=== PATIENT | male | born 1950 | race Caucasian/White ===

== ENCOUNTER 2020-01-21 12:09 | Inpatient (IN) | payer MEDICARE, OTHER, SELFPAY ==
[2020-01-21] MEDS ORDERED: Sodium Chloride 0.9% 10 ML Syringe FLUSH PRN (13:45)
--- NOTE | 2020-01-21 13:50 | EDM.PDOC ---
ED HPI GENERAL MEDICAL PROBLEM - General Chief Complaint: General Stated Complaint: FALL (YESTERDAY) Time Seen by Provider: 01/21/20 13:35 Source of Information: Reports: Patient History Limitations: Reports: No Limitations - History of Present Illness INITIAL COMMENTS - FREE TEXT/NARRATIVE: 69-year-old male presents to the ED per private vehicle he drove himself here. He found himself on the kitchen floor this morning and is unsure how he got there. He remembers falling yesterday out of weakness and landing on his right knee. Patient was diagnosed with cancer in his liver and lung about 6 weeks ago. He has been seen primarily at [facility] in [place]. Used to smoke but quit 17 years ago. Patient is recurrently receiving chemotherapy with last chemo given on Tuesday, January 15. He is due for chemotherapy again this Tuesday. He is not aware of a fever but he states he has had night sweats for 2 months and probably longer. He states up until 2 to 3 days ago he was able to eat but he has not been able to feel good enough to eat anything for at least 48 hours and probably longer. He reports that he still voiding but the urine is dark in color and brown slightly. He does report that he gets intermittent chills but no worse than what he has been experiencing for the last several months. Patient denies cough or sputum production. He is having significant right upper quadrant abdominal pain that is worsened by deep breathing. This pain is sharp and stabbing ,pleuritic-like and he is aware of discomfort under the right costal margin on palpation of his own abdomen. He does not believe that he hurt himself from getting falling to the floor and believes he must of went down easily. He reports that he did have a stroke in October of this year with left-sided weakness and paresthesias. He went down to [place] and was seen through the ED but apparently did not require admission to the hospital by neurology services. Abdominal Pain Score (Numeric/FACES): 6 - Related Data Allergies Allergy/AdvReac Type Severity Reaction Status Date / Time No Known Allergies Allergy Verified 01/21/20 12:23 Past Medical History Respiratory History: Reports: Other (See Below) (Primary carcinoma left lung--diagnosed approximately 6 weeks prior to admission) Musculoskeletal History: Reports: Back Pain, Chronic (Min problems with low back pain) Oncologic (Cancer) History: Reports: Liver, Lung Social & Family History - Tobacco Use Smoking Status *Q: Former Smoker (At 17 years ago. 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 Denies: Weight Loss HEENT: Reports: No Symptoms Respiratory: Reports: Shortness of Breath, Pleuritic Chest Pain (This is felt primarily in the right lung base but more so in the infra costal area in the distribution of his liver.), Cough. Denies: Wheezing (Feels mildly short of breath.), Sputum, Hemoptysis (Nonproductive) Cardiovascular: Reports: Dyspnea on Exertion, Lightheadedness (Especially the last 2 to 3 days). Denies: Chest Pain, Blood Pressure Problem, Claudication, Orthopnea Endocrine: Reports: Fatigue GI/Abdominal: Reports: Abdominal Pain (Required in the abdomen in the distribution of his liver. Pain is occasional sharp and stabbing otherwise aware of a dull ache in this area. He does radiate through to his right flank.), Anorexia (Not taken any solids for greater than 48 hours.), Diarrhea. Denies: Distension, Flatus, Hematemesis, Hematochezia : Reports: Other (It is dark in color.). Denies: Dysuria Musculoskeletal: Reports: Shoulder Pain, Back Pain (Diffuse intermittent low back pain.), Joint Pain (Cage no shoulder pain and neck pain. He is tender where he fell on it yesterday.) Skin: Reports: No Symptoms Neurological: Reports: Confusion, Dizziness, Syncope (Normalized weakness apparent syncopal event as he found himself on the kitchen floor this morning and does not know how long he was on the floor. He does remember how he got on the floor either.), Difficulty Walking, Weakness. Denies: Change in Speech Psychiatric: Reports: Depression Hematologic/Lymphatic: Reports: Anemia (Especially since the diagnosis of cancer 6 weeks ago.) Immunologic: Reports: No Symptoms ED EXAM, GENERAL - Physical Exam Exam: See Below Exam Limited By: No Limitations General Appearance: Alert, Anxious, Moderate Distress (Tachypneic on observation.), Other (Temperature recorded 37.2 but he feels much warmer than this. Heart rate is 152 by the nurses recording sinus tachycardia. Respiratory 16 with O2 sats of 97% I actually observed a tachypnea of 26/min. BP is 136/97 supine.) Eye Exam: Bilateral Eye: PERRL, Other (Very mild scleral icterus appreciated on exam.) Throat/Mouth: Normal Inspection, Normal Lips, Normal Teeth, Normal Oropharynx, Other (Tongue is still moist.) Head: Atraumatic, Normocephalic, Other (There are no outward signs of head or facial trauma.) Neck: Normal Inspection, Supple, Non-Tender, Full Range of Motion, Other (Supraclavicular or infraclavicular adenopathy appreciated.). No: Lymphadenopathy (L), Lymphadenopathy (R) Respiratory/Chest: Lungs Clear, Respiratory Distress (Tachypnea at rest 26/min), Decreased Breath Sounds, Other (Port-A-Cath present right upper anterior chest.). No: Rales, Rhonchi, Wheezing Cardiovascular: No Edema, No Gallop, No JVD (Very minimally decreased to lung bases may be the lower 15%.), No Murmur, No Rub, Tachycardia (Heart rate was in the 140s on my examination. Monitor shows sinus tachycardia). No: Regular Rate, Rhythm Peripheral Pulses: 1+: Posterior Tibial (L), Posterior Tibial (R), Dorsalis Pedis (L), Dorsalis Pedis (R) GI/Abdominal: Guarding, Abnormal Bowel Sounds, Hepatomegaly (There is felt 2 fingerbreadths below the right costal margin and is tender to palpation.). No: Distended (All sounds are decreased from the norm.), Splenomegaly (Male) Exam: No Hernia Back Exam: Normal Inspection, Full Range of Motion. No: CVA Tenderness (L), CVA Tenderness (R) Extremities: Normal Inspection, No Pedal Edema, Other (Tenderness over the right knee i.e. patella. No traumatic effusion noted no clinical evidence of patellofemoral fracture.) Neurological: Alert, Oriented, CN II-XII Intact, Normal Cognition. No: Normal Gait (Not assessed.) Psychiatric: Anxious (Mildly anxious), Depressed Mood Skin Exam: Warm, Dry, Intact, Normal Color, No Rash EKG INTERPRETATION EKG Date: 01/21/20 Time: 13:50 Rhythm: Other (sinus tachycardia) Rate (Beats/Min): 140 [place]: RAD-Right [place]way Deviation (114 degrees.) P-Wave: Enlarged (Right atrial hypertrophy pattern.) QRS: Other (Decreased voltage extremity leads. Early R wave transition consider right ventricular hypertrophy versus septal hypertrophy pattern.) ST-T: Other (T wave inversion in aVL nonspecific finding.) QT: Normal EKG Interpretation Comments: Abnormal ECG Course - Vital Signs Last Recorded V/S: Last Vital Signs Temp 37.2 C 01/21/20 14:45 Pulse 130 H 01/21/20 14:45 Resp 30 H 01/21/20 14:45 BP 126/77 01/21/20 14:45 Pulse Ox 93 L 01/21/20 14:45 Orthostatic Blood Pressure [ 114/79 Standing] Orthostatic Blood Pressure [ 122/81 Sitting] Orthostatic Blood Pressure [ 110/79 Supine] - Orders/Labs/Meds Orders: Active Orders 24 hr Category Date Time Status EKG 12 Lead [EKG Documentation Completion] [RC] STAT Care 01/21/20 13:22 Active Peripheral IV Care [RC] . DIRECTED Care 01/21/20 13:45 Active CORONAVIRUS COVID-19 ARNOLD [MOLEC] Stat Lab 01/21/20 15:24 Received CULTURE BLOOD [BC] Stat Lab 01/21/20 15:14 Received CULTURE BLOOD [BC] Stat Lab 01/21/20 15:22 Received UA W/MICROSCOPIC [URIN] Stat Lab 01/21/20 12:51 Ordered Dextrose 5%-0.9% NaCl [Dextrose 5%-Normal Saline] 1,000 Med 01/21/20 14:00 Active ml IV ASDIRECTED Dextrose 5%-0.9% NaCl [Dextrose 5%-Normal Saline] 1,000 Med 01/21/20 15:30 Active ml IV ASDIRECTED Potassium Chloride [KCl 10 MEQ in Water 100 ML] 10 meq Med 01/21/20 14:45 Active Premix Bag 1 bag IV Q1H Sodium Chloride 0.9% [Saline Flush] Med 01/21/20 13:45 Active 10 ml FLUSH ASDIRECTED PRN Blood Culture x2 Reflex Set [OM.PC] Stat Oth 01/21/20 13:44 Ordered Peripheral IV Insertion Adult [OM.PC] Stat Oth 01/21/20 13:45 Ordered Medication Orders Dextrose/Sodium Chloride (Dextrose 5%-Normal Saline) 1,000 mls @ 999 mls/hr IV ASDIRECTED SIS Last Admin: 01/21/20 14:18 Dose: 999 mls/hr Documented by: FRANCINE Potassium Chloride 10 meq/ (Premix) 100 mls @ 100 mls/hr IV Q1H SIS Stop: 01/21/20 19:44 Last Admin: 01/21/20 16:32 Dose: 100 mls/hr Documented by: Infusion: 01/21/20 16:28 Dose: 100 mls/hr Documented by: Admin: 01/21/20 15:28 Dose: 100 mls/hr Documented by: SALTY Dextrose/Sodium Chloride (Dextrose 5%-Normal Saline) 1,000 mls @ 125 mls/hr IV ASDIRECTED SIS Last Admin: 01/21/20 15:29 Dose: 125 mls/hr Documented by: SALTY Sodium Chloride (Saline Flush) 10 ml FLUSH ASDIRECTED PRN PRN Reason: Keep Vein Open Last Admin: 01/21/20 14:20 Dose: 10 ml Documented by: FRANCINE Labs: Laboratory Tests 01/21/20 01/21/20 01/21/20 Range/Units 12:18 12:30 12:58 WBC 1.76 L* (4.23-9.07) K/mm3 RBC 4.12 L (4.63-6.08) M/mm3 Hgb 12.4 L (13.7-17.5) gm/dl Hct 38.0 L (40.1-51.0) % MCV 92.2 (79.0-92.2) fl MCH 30.1 (25.7-32.2) pg MCHC 32.6 (32.2-35.5) g/dl RDW Std Deviation 42.4 (35.1-43.9) fL Plt Count 131 L (163-337) K/mm3 MPV 9.0 L (9.4-12.3) fl Neut % (Auto) 72.1 H (34.0-67.9) % Lymph % (Auto) 18.2 L (21.8-53.1) % Schley % (Auto) 7.4 (5.3-12.2) % Eos % (Auto) 0.6 L (0.8-7.0) Baso % (Auto) 0.6 (0.1-1.2) % Neut # (Auto) 1.27 L (1.78-5.38) K/mm3 Lymph # (Auto) 0.32 L (1.32-3.57) K/mm3 Schley # (Auto) 0.13 L (0.30-0.82) K/mm3 Eos # (Auto) 0.01 L (0.04-0.54) K/mm3 Baso # (Auto) 0.01 (0.01-0.08) K/mm3 Manual Slide Review Abnormal smear PT (9.7-12.0) SECONDS INR APTT (22-31) SECONDS D-Dimer, Quantitative (0.19-0.50) mg/L Puncture Site ABG pH (7.35-7.45) ABG pCO2 (35.0-45.0) mmHg ABG pO2 (80.0-100.0) mmHg ABG HCO3 (22.0-26.0) meq/L ABG O2 Saturation (96.0-97.0) % ABG Base Excess (-2-2.0) Alfredo Test A-a Gradient mmHg O2 Delivery Device Oxygen Flow Rate FiO2 (21.00-100.00) % Sodium (136-145) mEq/L Potassium (3.5-5.1) mEq/L Chloride (98-107) mEq/L Carbon Dioxide (21-32) mEq/L Anion Gap (5-15) BUN (7-18) mg/dL Creatinine (0.7-1.3) mg/dL Est Cr Clr Drug Dosing Estimated GFR (MDRD) (>60) mL/min BUN/Creatinine Ratio (14-18) Glucose (80-115) mg/dL Lactic Acid (0.4-2.0) mmol/L Calcium (8.5-10.1) mg/dL Magnesium 1.8 (1.8-2.4) mg/dl Total Bilirubin (0.2-1.0) mg/dL AST (15-37) U/L ALT (16-63) U/L Alkaline Phosphatase (46-116) U/L Troponin I < 0.017 (0.00-0.056) ng/mL NT-Pro-B Natriuret Pep 314 H (0-125) pg/mL Total Protein (6.4-8.2) g/dl Albumin (3.4-5.0) g/dl Globulin gm/dL Albumin/Globulin Ratio (1-2) 01/21/20 01/21/20 01/21/20 Range/Units 12:58 12:58 15:14 WBC (4.23-9.07) K/mm3 RBC (4.63-6.08) M/mm3 Hgb (13.7-17.5) gm/dl Hct (40.1-51.0) % MCV (79.0-92.2) fl MCH (25.7-32.2) pg MCHC (32.2-35.5) g/dl RDW Std Deviation (35.1-43.9) fL Plt Count (163-337) K/mm3 MPV (9.4-12.3) fl Neut % (Auto) (34.0-67.9) % Lymph % (Auto) (21.8-53.1) % Schley % (Auto) (5.3-12.2) % Eos % (Auto) (0.8-7.0) Baso % (Auto) (0.1-1.2) % Neut # (Auto) (1.78-5.38) K/mm3 Lymph # (Auto) (1.32-3.57) K/mm3 Schley # (Auto) (0.30-0.82) K/mm3 Eos # (Auto) (0.04-0.54) K/mm3 Baso # (Auto) (0.01-0.08) K/mm3 Manual Slide Review PT 11.8 (9.7-12.0) SECONDS INR 1.09 APTT 27 (22-31) SECONDS D-Dimer, Quantitative 2.38 H (0.19-0.50) mg/L Puncture Site ABG pH (7.35-7.45) ABG pCO2 (35.0-45.0) mmHg ABG pO2 (80.0-100.0) mmHg ABG HCO3 (22.0-26.0) meq/L ABG O2 Saturation (96.0-97.0) % ABG Base Excess (-2-2.0) Alfredo Test A-a Gradient mmHg O2 Delivery Device Oxygen Flow Rate FiO2 (21.00-100.00) % Sodium 137 (136-145) mEq/L Potassium 2.9 L (3.5-5.1) mEq/L Chloride 97 L (98-107) mEq/L Carbon Dioxide 29 (21-32) mEq/L Anion Gap 13.9 (5-15) BUN 14 (7-18) mg/dL Creatinine 1.0 (0.7-1.3) mg/dL Est Cr Clr Drug Dosing TNP Estimated GFR (MDRD) > 60 (>60) mL/min BUN/Creatinine Ratio 14.0 (14-18) Glucose 166 H (80-115) mg/dL Lactic Acid 1.1 (0.4-2.0) mmol/L Calcium 9.0 (8.5-10.1) mg/dL Magnesium (1.8-2.4) mg/dl Total Bilirubin 0.9 (0.2-1.0) mg/dL AST 20 (15-37) U/L ALT 39 (16-63) U/L Alkaline Phosphatase 138 H (46-116) U/L Troponin I (0.00-0.056) ng/mL NT-Pro-B Natriuret Pep (0-125) pg/mL Total Protein 6.9 (6.4-8.2) g/dl Albumin 2.2 L (3.4-5.0) g/dl Globulin 4.7 gm/dL Albumin/Globulin Ratio 0.5 L (1-2) //20 Range/Units 15:49 WBC (4.23-9.07) K/mm3 RBC (4.63-6.08) M/mm3 Hgb (13.7-17.5) gm/dl Hct (40.1-51.0) % MCV (79.0-92.2) fl MCH (25.7-32.2) pg MCHC (32.2-35.5) g/dl RDW Std Deviation (35.1-43.9) fL Plt Count (163-337) K/mm3 MPV (9.4-12.3) fl Neut % (Auto) (34.0-67.9) % Lymph % (Auto) (21.8-53.1) % Schley % (Auto) (5.3-12.2) % Eos % (Auto) (0.8-7.0) Baso % (Auto) (0.1-1.2) % Neut # (Auto) (1.78-5.38) K/mm3 Lymph # (Auto) (1.32-3.57) K/mm3 Schley # (Auto) (0.30-0.82) K/mm3 Eos # (Auto) (0.04-0.54) K/mm3 Baso # (Auto) (0.01-0.08) K/mm3 Manual Slide Review PT (9.7-12.0) SECONDS INR APTT (22-31) SECONDS D-Dimer, Quantitative (0.19-0.50) mg/L Puncture Site Lt radial ABG pH 7.46 H (7.35-7.45) ABG pCO2 36.3 (35.0-45.0) mmHg ABG pO2 65.0 L (80.0-100.0) mmHg ABG HCO3 25.7 (22.0-26.0) meq/L ABG O2 Saturation 92.3 L (96.0-97.0) % ABG Base Excess 2.5 H (-2-2.0) Alfredo Test Positive A-a Gradient 36 mmHg O2 Delivery Device Room air Oxygen Flow Rate 0.0 FiO2 21.00 (21.00-100.00) % Sodium (136-145) mEq/L Potassium (3.5-5.1) mEq/L Chloride (98-107) mEq/L Carbon Dioxide (21-32) mEq/L Anion Gap (5-15) BUN (7-18) mg/dL Creatinine (0.7-1.3) mg/dL Est Cr Clr Drug Dosing Estimated GFR (MDRD) (>60) mL/min BUN/Creatinine Ratio (14-18) Glucose (80-115) mg/dL Lactic Acid (0.4-2.0) mmol/L Calcium (8.5-10.1) mg/dL Magnesium (1.8-2.4) mg/dl Total Bilirubin (0.2-1.0) mg/dL AST (15-37) U/L ALT (16-63) U/L Alkaline Phosphatase (46-116) U/L Troponin I (0.00-0.056) ng/mL NT-Pro-B Natriuret Pep (0-125) pg/mL Total Protein (6.4-8.2) g/dl Albumin (3.4-5.0) g/dl Globulin gm/dL Albumin/Globulin Ratio (1-2) Meds: Medications Generic Name Dose Route Start Last Admin Trade Name Freq PRN Reason Stop Dose Admin Dextrose/Sodium Chloride 1,000 mls @ 999 mls/hr 01/21/20 14:00 01/21/20 14:18 Dextrose 5%-Normal Saline IV 999 mls/hr ASDIRECTED SIS Administration Potassium Chloride 10 meq/ 100 mls @ 100 mls/hr 01/21/20 14:45 01/21/20 16:32 Premix IV 01/21/20 19:44 100 mls/hr Q1H SIS Administration Dextrose/Sodium Chloride 1,000 mls @ 125 mls/hr 01/21/20 15:30 01/21/20 15:29 Dextrose 5%-Normal Saline IV 125 mls/hr ASDIRECTED SIS Administration Sodium Chloride 10 ml 01/21/20 13:45 01/21/20 14:20 Saline Flush FLUSH 10 ml ASDIRECTED PRN Administration Keep Vein Open Discontinued Medications Generic Name Dose Route Start Last Admin Trade Name Freq PRN Reason Stop Dose Admin Acetaminophen 650 mg 01/21/20 14:34 01/21/20 15:29 Tylenol PO 01/21/20 14:35 Not Given ONETIME ONE Ampicillin Sodium/Sulbactam 100 mls @ 200 mls/hr 01/21/20 14:33 06/29/20 15:52 Sodium 3 gm/ Sodium Chloride IV 01/21/20 15:02 200 mls/hr ONETIME ONE Administration Vancomycin HCl 1.75 gm/ Sodium 500 mls @ 250 mls/hr 01/21/20 14:37 01/21/20 15:54 Chloride IV 01/21/20 14:38 250 mls/hr ONETIME ONE Administration - Radiology Interpretation Free Text/Narrative:: 69-year-old male presents to the ED due to generalized severe weakness. He states he found himself on his kitchen floor this morning and is unsure how long he been down and how he ended up on the floor. He also fell yesterday due to weakness landing on his right knee. He states he does not feel like he broke any bones. He has no headache nausea or vomiting. Patient was recently diagnosed with lung cancer felt to be primary with metastatic disease to the liver approximately 6 weeks ago. He has a Port-A-Cath in right upper anterior chest and has been receiving chemotherapy every Tuesday I believe he has completed 2 cycles of chemotherapy and is scheduled for the next one on Tuesday--January 22- this week. Patient states he has chills intermittently. How ever he has had been having night sweats for about a year with intermittent chills. He appreciated his urine is dark in color. He states he has not been able to keep down any solids or eat for the last 2 days. Has also not been taking adequate fluids. States he has lost his appetite completely. Mild is nausea but no vomiting. Mild diarrhea x1 yesterday and small diarrhea stool this morning without blood.. Patient was a smoker in the past but quit 17 years ago. Takes 3-4 beers daily. Not drank for 48 hours. Note the patient is single and lives alone. - Re-Assessments/Exams Free Text/Narrative Re-Assessment/Exam: 01/21/20 14:28 Patient is neutropenic with a white cell count of 1.76. The auto differential is 72.1% neutrophils. Hemoglobin is 12.4 with hematocrit of 38.0. Platelet count 131,000. The slide reveals leukocytopenia and slightly decreased platelet count with normal morphology. Again no bands cells reported. PT is 11.8 with a INR of 1.09. PTT is 27. D-dimer elevated at 2.38 not unexpected for cancer patient. Sodium is 137 with a potassium low at 2.9. Chloride 97 with a bicarb of 29. Anion gap is 13.9. BUN is 14 with a creatinine of 1.0. GFR is greater than 60. Glucose elevated at 166. Calcium is 9.0. Magnesium is 1.8. Bilirubin is 0.9. AST is 20 with an ALT of 39. Alk phos is slightly elevated at 138. Troponin I is less than 0.017. Total protein is 6.9 albumin fraction is 2.2. Chest x-ray reveals a mass in the left lower lung field. It is approximately 4.5 cm in diameter. No other signs of cancer appreciated in either lung. Lungs are mildly hyperinflated. Cardiac silhouette is normal. Mild diffuse vascular congestion pattern. BNP is ordered but analyzer is still not working. The cath appreciated right upper anterior chest. Will require potassium supplementation and I will order 10 mEq/h for 5 consecutive hours. He will also be started on antibiotics empirically as he is febrile and neutropenic. Will be given Unasyn 3 g IV followed by vancomycin 1750mg IV. He will require admission to the hospital and I will discuss case with Dr. Arora on-call hospitalist. 01/21/20: 15:35 BNP slightly elevated at 314. Total protein 6.9 with a low albumin fraction of 2.2. COVID screen is pending. 01/21/20 16:00: Patient has had a prolonged period of active investigation with difficulty starting his Port-A-Cath and then receiving blood cultures x2 and lactic acid. He is hungry and requesting some pudding and some fluids orally. This will be started as soon as possible. COVID screen has been obtained as well. Patient has been seen by Dr. Arora and will be admitted to the intensive care unit. Note patient refused Tylenol because his previous doctor told him that he could not take any Tylenol or Motrin. Of note the patient is clinically febrile. And can have up to 2 g of Tylenol per day even with liver disease. Tylenol will not be forced upon him. 01/21/20 17:16 Departure - Departure Time of Disposition: 16:30 Disposition: Admitted As Inpatient 68 Condition: Poor Clinical Impression: Personal history of immunocompromised state, Metastatic carcinoma to liver, Acute febrile illness, Fall as cause of accidental injury at home as place of occurrence, Generalized weakness, Hypokalemia Primary lung cancer Qualifiers: Laterality: left Qualified Code(s): C34.92 - Malignant neoplasm of unspecified part of left bronchus or lung - Discharge Information *PRESCRIPTION DRUG MONITORING PROGRAM REVIEWED*: Not Applicable *COPY OF PRESCRIPTION DRUG MONITORING REPORT IN PATIENT ESTELA: Not Applicable Sepsis Event Note (ED) - Evaluation Sepsis Screening Result: No Definite Risk - Focused Exam Vital Signs: Vital Signs Temp Pulse Resp BP Pulse Ox 01/21/20 14:45 37.2 C 130 H 30 H 126/77 93 L 01/21/20 12:20 37.2 C 152 H 16 136/97 H 97 - My Orders Last 24 Hours: My Active Orders 01/21/20 14:00 Dextrose 5%-0.9% NaCl [Dextrose 5%-Normal Saline] 1,000 ml IV ASDIRECTED 01/21/20 14:45 Potassium Chloride [KCl 10 MEQ in Water 100 ML] 10 meq Premix Bag 1 bag IV Q1H 01/21/20 15:24 CORONAVIRUS COVID-19 ARNOLD [MOLEC] Stat 01/21/20 15:30 Dextrose 5%-0.9% NaCl [Dextrose 5%-Normal Saline] 1,000 ml IV ASDIRECTED - Assessment/Plan Last 24 Hours: My Active Orders 01/21/20 14:00 Dextrose 5%-0.9% NaCl [Dextrose 5%-Normal Saline] 1,000 ml IV ASDIRECTED 01/21/20 14:45 Potassium Chloride [KCl 10 MEQ in Water 100 ML] 10 meq Premix Bag 1 bag IV Q1H 01/21/20 15:24 CORONAVIRUS COVID-19 ARNOLD [MOLEC] Stat 01/21/20 15:30 Dextrose 5%-0.9% NaCl [Dextrose 5%-Normal Saline] 1,000 ml IV ASDIRECTED
[2020-01-21] MEDS ORDERED: Dextrose 5%-0.9% NaCl 1,000 ML IV SCH (14:00)
--- NOTE | 2020-01-21 14:30 | CR ---
Chest: Portable view of the chest was obtained. Masslike density overlying the left cardiac apex is seen. Lungs otherwise are clear. Heart size and mediastinum are normal. Right-sided infusion port is seen. Impression: 1. 4.5 cm masslike density overlying the left cardiac apex. Chest CT could be considered to confirm this finding. 2. Infusion port. Nothing acute is otherwise seen. Diagnostic code #9 This report was dictated in MDT
[2020-01-21] MEDS ORDERED: Ampicillin/Sulbactam Na 3 GM in Sodium Chloride 0.9% 100 ML IV ONE (14:33)
[2020-01-21] MEDS ORDERED: Acetaminophen 325 MG Tab PO ONE (14:34)
[2020-01-21] MEDS ORDERED: Vancomycin 1.75 GM in Sodium Chloride 0.9% 500 ML IV ONE (14:37)
[2020-01-21] MEDS: Potassium Chloride 10 MEQ in Premix Bag 1 BAG IV SCH ×5 (15:28→19:54)
[2020-01-21] MEDS: Dextrose 5%-0.9% NaCl 1,000 ML IV SCH ×2 (15:29→23:09)
--- NOTE | 2020-01-21 16:33 | PCM.HP.2 ---
H&P History of Present Illness - General Date of Service: 01/21/20 Admit Problem/Dx: Admission Diagnosis/Problem Admission Diagnosis/Problem Neutropenia - History of Present Illness Initial Comments - Free Text/Narative: This is a 69-year-old male with no significant past medical history who was diagnosed with metastatic lung cancer to liver about 6 weeks ago. Patient came in for worsening weakness and episode of confusion with disorientation day prior. Intermittent coughing for the past 2 to 3 weeks, described as dry Started chemotherapy 3 weeks ago, is getting doses on Wednesdays, third dose due this Tuesday Abdominal Pain Score (Numeric/FACES): 6 - Related Data Allergies/Adverse Reactions: Allergies Allergy/AdvReac Type Severity Reaction Status Date / Time No Known Allergies Allergy Verified 01/21/20 12:23 Past Medical History Oncologic (Cancer) History: Reports: Liver, Lung Social & Family History - Tobacco Use Smoking Status *Q: Never Smoker - Caffeine Use Caffeine Use: Reports: None H&P Review of Systems - Review of Systems: Review Of Systems: See Below General: Reports: Fever, Chills, Malaise, Weakness, Fatigue, Decreased Appetite, Weight Loss. Denies: Night Sweats, Diaphoresis, Weight Gain HEENT: Denies: Post Nasal Drip, Sinus Congestion, Sore Throat, Vertigo, Visual Changes Pulmonary: Reports: Shortness of Breath, Cough. Denies: Wheezing, Pleuritic Chest Pain, Sputum, Hemoptysis Cardiovascular: Reports: Dyspnea on Exertion. Denies: Chest Pain, Palpitations, Orthopnea, PND, Edema, Lightheadedness, Syncope, Claudication Gastrointestinal: Reports: Diarrhea (for 2 days), Decreased Appetite, Nausea, Vomiting. Denies: Abdominal Pain, Anorexia, Black Stool, Bloody Stool, Constipation, Distension, Flatus, Hematemesis, Stool Incontinence Genitourinary: Reports: Other (Slow stream). Denies: Dysuria, Frequency, Burning Musculoskeletal: Reports: Joint Pain, Muscle Pain. Denies: Joint Swelling, Muscle Stiffness Skin: Denies: Cyanosis, Jaundice, Mottled, Pallor Psychiatric: Denies: Depression, Mood Lability, Anxiety Neurological: Denies: Dizziness, Headache, Numbness Exam - Exam Exam: See Below - Vital Signs Vital Signs: Last Vital Signs Temp 98.9 F 01/21/20 12:20 Pulse 152 H 01/21/20 12:20 Resp 16 01/21/20 12:20 BP 136/97 H 01/21/20 12:20 Pulse Ox 97 01/21/20 12:20 Orthostatic Blood Pressure [ 114/79 Standing] Orthostatic Blood Pressure [ 122/81 Sitting] Orthostatic Blood Pressure [ 110/79 Supine] Weight: 70.307 kg - Exam General: Alert, Oriented, Mild Distress HEENT: EOMI, Hearing Intact, Mucosa Moist & [place]. No: Conjunctiva Clear Neck: Supple, Trachea Midline, +2 Carotid Pulse wo Bruit, Full Range of Motion. No: Lymphadenopathy Lungs: Clear to Auscultation, Normal Respiratory Effort. No: Decreased Breath Sounds, Crackles, Rales, Rhonchi, Rub, Wheezing Cardiovascular: Regular Rate, Regular Rhythm. No: Systolic Murmur, Diastolic Murmur, Rubs, Gallop/S3, Gallop/S4 GI/Abdominal Exam: Normal Bowel Sounds, Soft, Non-Tender, No Organomegaly Extremities: Normal Inspection, Non-Tender, No Pedal Edema, Slow Capillary Refill Peripheral Pulses: 2+: Radial (L), Radial (R) Neuro Extensive - Mental Status: Alert, Oriented x3 - Patient Data Result Diagrams: 01/23/20 06:20 01/23/20 06:20 Sepsis Event Note - Evaluation Sepsis Screening Result: No Definite Risk - Problem List (1) Neutropenic fever SNOMED Code(s): 058648828 ICD Code: D70.9 - NEUTROPENIA, UNSPECIFIED; R50.81 - FEVER PRESENTING WITH CONDITIONS CLASSIFIED ELSEWHERE Status: Acute Current Visit: Yes (2) Leukopenia SNOMED Code(s): 89246275, 745673529 ICD Code: D72.819 - DECREASED WHITE BLOOD CELL COUNT, UNSPECIFIED Status: Acute Current Visit: Yes (3) Diarrhea SNOMED Code(s): 45275107 ICD Code: R19.7 - DIARRHEA, UNSPECIFIED Status: Acute Current Visit: Yes (4) Hypophosphatemia SNOMED Code(s): 5555575 ICD Code: E83.39 - OTHER DISORDERS OF PHOSPHORUS METABOLISM Status: Acute Current Visit: Yes (5) COPD (chronic obstructive pulmonary disease) SNOMED Code(s): 82328089 ICD Code: J44.9 - CHRONIC OBSTRUCTIVE PULMONARY DISEASE, UNSPECIFIED Stat us: Acute Current Visit: Yes (6) Ex-smoker SNOMED Code(s): 3422632 ICD Code: Z87.891 - PERSONAL HISTORY OF NICOTINE DEPENDENCE Status: Acute Current Visit: Yes (7) Hypoalbuminemia SNOMED Code(s): 445671733 ICD Code: E88.09 - OTH DISORDERS OF PLASMA-PROTEIN METABOLISM, NEC Status: Acute Current Visit: Yes (8) Sinus tachycardia SNOMED Code(s): 04008804 ICD Code: R00.0 - TACHYCARDIA, UNSPECIFIED Status: Acute Current Visit: Yes (9) Acute febrile illness SNOMED Code(s): 465776292 ICD Code: R50.9 - FEVER, UNSPECIFIED Status: Acute Current Visit: Yes (10) Generalized weakness SNOMED Code(s): 00865990 ICD Code: R53.1 - WEAKNESS Status: Acute Current Visit: Yes (11) Hypokalemia SNOMED Code(s): 08209198 ICD Code: E87.6 - HYPOKALEMIA Status: Acute Current Visit: Yes (12) Metastatic carcinoma to liver SNOMED Code(s): 61758531, 086730217 ICD Code: C78.7 - SECONDARY MALIG NEOPLASM OF LIVER AND INTRAHEPATIC BILE DUCT Status: Acute Current Visit: Yes (13) Primary lung cancer SNOMED Code(s): 70933303 ICD Code: C34.90 - MALIGNANT NEOPLASM OF UNSP PART OF UNSP BRONCHUS OR LUNG Status: Acute Current Visit: Yes Qualifiers: Laterality: left Qualified Code(s): C34.92 - Malignant neoplasm of unspecified part of left bronchus or lung (14) Physical deconditioning SNOMED Code(s): 91736028346485 ICD Code: R53.81 - OTHER MALAISE Status: Acute Current Visit: Yes Problem List Initiated/Reviewed/Updated: Yes Assessment/Plan Comment:: ASSESSMENT This is a 69-year-old male with no significant past medical history who was diagnosed with metastatic lung cancer to liver about 6 weeks ago. Patient came in for worsening weakness and episode of confusion with disorientation day prior. Intermittent coughing for the past 2 to 3 weeks, described as dry Started chemotherapy 3 weeks ago, is getting doses on Wednesdays, third dose due this Tuesday Found to be tachycardic and hypoxemic in the ED, neutropenic, hypokalemic, hypophosphatemic and volume depleted PLAN Primary lung cancer metastatic to liver currently undergoing chemotherapy Neutropenic fever Leukopenia Diarrhea COPD (chronic obstructive pulmonary disease) Ex-smoker Hypoxemic respiratory failure Start cefepime and vancomycin Neutropenic precautions Stool studies for ova and parasite, WBC smear, C. difficile Request records from oncology Continue nasal cannula and wean off as tolerated Hypokalemia Hypophosphatemia Replace IV Generalized weakness Hypoalbuminemia Acute deconditioning Dietary consult Discussed starting Megace PROPHYLAXIS DVT Lovenox GI not indicated CODE STATUS: FULL CODE DISPOSITION Patient will be admitted to the ICU under neutropenic precautions with IV antibiotics for infectious disease work-up and monitoring sedation as well as oxygen repletion - Mortality Measure Prognosis:: Poor
[2020-01-22] MEDS: Dextrose 5%-0.9% NaCl 1,000 ML IV SCH (06:59)
[2020-01-22] MEDS: Lactated Ringers 1,000 ML IV SCH ×2 (10:20→22:07)
[2020-01-22] MEDS: Cefepime 2 GM in Premix Bag 1 BAG IV SCH ×2 (10:22→17:36)
[2020-01-22] MEDS ORDERED: Magnesium Sulfate/Water 4 GM in Premix Bag 1 BAG IV ONE ×5 (11:00)
[2020-01-22] MEDS ORDERED: Potassium Phosphates 60 MMOLE in Sodium Chloride 0.9% 1,000 ML IV ONE (11:00)
--- NOTE | 2020-01-22 23:25 | PCM.PN ---
- General Info Date of Service: 01/22/20 Subjective Update: Slept so so Still having diarrhea, 4-5 episodes overnight Ambulating to and from restroom No more coughing - Patient Data Vitals - Most Recent: Last Vital Signs Temp 98.6 F 01/22/20 20:00 Pulse 85 01/22/20 12:00 Resp 23 H 01/22/20 20:00 BP 121/81 01/22/20 20:00 Pulse Ox 94 L 01/22/20 20:00 Weight - Most Recent: 66.769 kg - Exam Physical Findings Comments:: General: Alert, Oriented, Mild Distress HEENT: EOMI, Hearing Intact, Mucosa Moist & [place]. No: Conjunctiva Clear Neck: Supple, Trachea Midline, +2 Carotid Pulse wo Bruit, Full Range of Motion. No: Lymphadenopathy Lungs: Clear to Auscultation, Normal Respiratory Effort. No: Decreased Breath Sounds, Crackles, Rales, Rhonchi, Rub, Wheezing Cardiovascular: Regular Rate, Regular Rhythm. No: Systolic Murmur, Diastolic Murmur, Rubs, Gallop/S3, Gallop/S4 GI/Abdominal Exam: Normal Bowel Sounds, Soft, Non-Tender, No Organomegaly Extremities: Normal Inspection, Non-Tender, No Pedal Edema, Slow Capillary Refill Peripheral Pulses: 2+: Radial (L), Radial (R) Neuro Extensive - Mental Status: Alert, Oriented x3 Sepsis Event Note - Evaluation Sepsis Screening Result: Severe Sepsis Risk - Problem List & Annotations (1) Acute febrile illness SNOMED Code(s): 899019982 Code(s): R50.9 - FEVER, UNSPECIFIED Status: Acute Priority: Medium Onset Date: ~01/22/20 Annotation/Comment:: cultures neg. stop iv antibioitics cont augmentin x 3 days (2) COPD (chronic obstructive pulmonary disease) SNOMED Code(s): 31482864 Code(s): J44.9 - CHRONIC OBSTRUCTIVE PULMONARY DISEASE, UNSPECIFIED Status: Acute Priority: Medium Onset Date: ~01/22/20 Qualifiers: Chronic bronchitis type: simple Annotation/Comment:: off o.2 desats with sleep snores / not apneic (3) Confusion with non-focal neuro exam SNOMED Code(s): 04158590, 780500850 Code(s): R41.0 - DISORIENTATION, UNSPECIFIED Status: Acute Priority: Medium Onset Date: ~01/25/20 Annotation/Comment:: etoh/ meds / narcatcs / benzodiazepines/ cancer / malnutrition all causes (4) Diarrhea SNOMED Code(s): 88662499 Code(s): R19.7 - DIARRHEA, UNSPECIFIED Status: Acute Priority: Low Onset Date: ~01/22/20 Qualifiers: Diarrhea type: unspecified type Qualified Code(s): R19.7 - Diarrhea, unspecified Annotation/Comment:: c diff and stool cultures normal (5) EtOH dependence SNOMED Code(s): 54879805 Code(s): F10.20 - ALCOHOL DEPENDENCE, UNCOMPLICATED Status: Acute Priority: Low Onset Date: ~01/25/20 Qualifiers: Substance use status: in withdrawal Complication of substance-induced condition: uncomplicated Qualified Code(s): F10.230 - Alcohol dependence with withdrawal, uncomplicated Annotation/Comment:: mild widthdrawl ? / will cont b12 and thiamine and short term librium x 5 days (6) Ex-smoker SNOMED Code(s): 9722004 Code(s): Z87.891 - PERSONAL HISTORY OF NICOTINE DEPENDENCE Status: Acute (7) Fall as cause of accidental injury at home as place of occurrence SNOMED Code(s): 79684353 Code(s): W19.XXXA - UNSPECIFIED FALL, INITIAL ENCOUNTER; Y92.009 - UNSP PLACE IN [facility] Status: Acute (8) Generalized weakness SNOMED Code(s): 50994962 Code(s): R53.1 - WEAKNESS Status: Acute Priority: Low Onset Date: ~01/22/20 Annotation/Comment:: improved ambulating with walker (9) Hypoalbuminemia SNOMED Code(s): 457545792 Code(s): E88.09 - OTH DISORDERS OF PLASMA-PROTEIN METABOLISM, NEC Status: Acute Priority: Medium Onset Date: ~01/22/20 Annotation/Comment:: nutrition poor sec to chemo and etoh and poor feeding. (10) Hypokalemia SNOMED Code(s): 34824946 Code(s): E87.6 - HYPOKALEMIA Status: Acute Priority: Low Onset Date: ~01/22/20 Annotation/Comment:: replaced massive k deficit with mag and k (11) Leukopenia SNOMED Code(s): 94342065, 228783206 Code(s): D72.819 - DECREASED WHITE BLOOD CELL COUNT, UNSPECIFIED Status: Acute (12) Malnutrition SNOMED Code(s): 94775903 Code(s): E46 - UNSPECIFIED PROTEIN-CALORIE MALNUTRITION Status: Acute Priority: Medium Qualifiers: Malnutrition type: protein-calorie malnutrition Protein-calorie malnutrition severity: mild Qualified Code(s): E44.1 - Mild protein-calorie malnutrition (13) Metastatic carcinoma to liver SNOMED Code(s): 14676300, 283738171 Code(s): C78.7 - SECONDARY MALIG NEOPLASM OF LIVER AND INTRAHEPATIC BILE DUCT Status: Acute Priority: Medium Onset Date: ~01/24/20 Annotation/Comment:: cont steriods but start emperic valcyclovir (14) Neutropenic fever SNOMED Code(s): 326620101 Code(s): D70.9 - NEUTROPENIA, UNSPECIFIED; R50.81 - FEVER PRESENTING WITH CONDITIONS CLASSIFIED ELSEWHERE Status: Acute (15) Personal history of immunocompromised state SNOMED Code(s): 584360839 Code(s): Z86.2 - PRSNL HISTORY OF DIS OF THE BLD/BLD-FORM ORG/IMMUN MECHNSM Status: Acute Priority: Medium Onset Date: ~01/24/20 Annotation/Comment:: neutropenia improving (16) Physical deconditioning SNOMED Code(s): 25349019064000 Code(s): R53.81 - OTHER MALAISE Status: Acute (17) Primary lung cancer SNOMED Code(s): 71434798 Code(s): C34.90 - MALIGNANT NEOPLASM OF UNSP PART OF UNSP BRONCHUS OR LUNG Status: Acute Priority: High Onset Date: ~01/24/20 Qualifiers: Laterality: left Qualified Code(s): C34.92 - Malignant neoplasm of unspecified part of left bronchus or lung - Problem List Review Problem List Initiated/Reviewed/Updated: Yes - Assessment Assessment:: Admission This is a 69-year-old male with no significant past medical history who was diagnosed with metastatic lung cancer to liver about 6 weeks ago. Patient came in for worsening weakness and episode of confusion with disorientation day prior. Intermittent coughing for the past 2 to 3 weeks, described as dry Started chemotherapy 3 weeks ago, is getting doses on Wednesdays, third dose due this Tuesday Found to be tachycardic and hypoxemic in the ED, neutropenic, hypokalemic, hypophosphatemic and volume depleted Started on Cefepime and Vancomycin Neutropenic precautions Stool studies sent out Records from oncology requested On nasal cannula Replaced electrolytes 01/22/20 Had 4-5 diarrhea episodes Weaned off nasal cannula Vancomycin and Cefepime day 2 Change IVF to LR Stool studies pending Tmax 100.1 Cultures sent and pending, NGTD Lab results - WBC down 1760 to 1460 - Neutrophils down from 1270 to 930 - Hb down from 12.4 to 10 ( likely hemodilution) - No signs of active bleed - K down from 2.9 to 2.7 - PO4 down from 2.4 to 1.4 - Mg down from 1.8 to 1.5 Daughter informed me she had spoken to oncologist clinic and they had requested CT head, which was ordered - Plan Plan:: Primary lung cancer metastatic to liver currently undergoing chemotherapy Neutropenic fever Leukopenia, worsened Moderate neutropenia, worsened Diarrhea, no improvement COPD (chronic obstructive pulmonary disease) Ex-smoker - Continue cefepime and vancomycin - Neutropenic precautions - Stool studies for ova and parasite, WBC smear, C. difficile - F/U procalcitonin - Pending records from oncology - Head CT Hypokalemia Hypophosphatemia Hypomagnesemia Replace IV Generalized weakness Hypoalbuminemia Acute deconditioning Dietary consult Discussed starting Megace, pending decision Hypoxemic respiratory failure, resolved PROPHYLAXIS DVT Lovenox GI not indicated CODE STATUS: FULL CODE DISPOSITION Patient will remain admitted to the ICU under neutropenic precautions with IV antibiotics for infectious disease work-up and monitoring.
[2020-01-23] MEDS: Cefepime 2 GM in Premix Bag 1 BAG IV SCH ×3 (02:13→18:17)
[2020-01-23] MEDS: Lactated Ringers 1,000 ML IV SCH ×2 (06:04→16:15)
[2020-01-23] MEDS ORDERED: Magnesium Sulfate/Water 4 GM in Premix Bag 1 BAG IV ONE (10:00)
[2020-01-23] MEDS ORDERED: ALPRAZolam 0.5 MG Tab PO ONE (10:41)
[2020-01-23] MEDS: Famotidine 20 MG Tab PO SCH (10:51)
[2020-01-23] MEDS: Potassium Chloride 10 MEQ in Premix Bag 1 BAG IV SCH ×6 (10:51→20:11)
[2020-01-23] MEDS ORDERED: Gadobenate Dimeglumine 529 MG/ML 15 ML SDV IVPUSH ONE (11:06)
[2020-01-23] MEDS ORDERED: Sodium Chloride 0.9% 10 ML Syringe FLUSH SCH (11:15)
--- NOTE | 2020-01-23 12:24 | MR ---
MRI brain (without and with intravenous contrast) Technique: T1 sagittal and coronal; T1, T2, FLAIR and diffusion axial; T1 postcontrast sagittal and coronal images were obtained. Findings: Motion artifact is noted on the postcontrast images. Ventricles along with basal cisterns and sulci over the convexities are mildly prominent for the patient's age. Mild areas of increased signal are seen within the periventricular and subcortical white matter which is most likely due to small vessel ischemic demyelination change. There is no acute diffusion abnormalities being seen. No midline shift or mass-effect is seen. No abnormal enhancement is seen. Impression: 1. Mild senescent change as noted above. 2. No acute diffusion abnormalities are seen. No abnormal areas of enhancement are seen. Diagnostic code #2 This report was dictated in MDT
[2020-01-23] MEDS ORDERED: Lactated Ringers 1,000 ML IV SCH (16:00)
--- NOTE | 2020-01-23 16:11 | CT ---
CT abdomen and pelvis Comparison: Prior PET scan dated 12/21/19 Technique: Multiple axial sections were obtained through the abdomen and pelvis. Intravenous contrast was utilized in the arterial phase. Study performed as a CT angiogram protocol. Findings: Aorta shows diffuse atherosclerotic change. No aneurysm is seen. No focal stenosis is noted. Common iliac artery shows diffuse atherosclerotic change without focal stenosis. Both external and internal iliac arteries show no focal stenosis. Superior mesenteric artery and celiac axis shows no focal stenosis. 2 renal arteries noted on both sides. No focal stenosis is seen. Large staghorn calculus is noted within the left mid and lower kidney. Size of this calculus measures around 4.4 cm. Smaller calcification compatible with nonobstructing stone seen inferiorly within the right kidney measuring approximately 1.9 cm in size. Partially visualized left lower lung mass is noted. This finding measures about 4.1 cm in size. This measures about 4.1 cm in size on prior PET exam. Emphysematous changes are seen within both lung bases. Multiple liver metastasis are seen which are noted on prior PET scan. Adrenal glands show no nodule. Spleen appears normal. Pancreas shows no discrete abnormality. No retroperitoneal adenopathy or mesenteric abnormalities are seen. No pelvic mass or adenopathy is appreciated. No bowel wall thickening is seen. Bone window settings were reviewed which shows degenerative change within the spine with diffuse osteopenia. Impression: 1. Diffuse atherosclerotic change within the aortoiliac system and branch vessels. Nothing is identified on this exam to indicate hemodynamic significant stenosis. 2. Left lung mass and liver metastasis. 3. Staghorn calculus within the lower and mid left kidney and smaller nonobstructing calculus within the right kidney. Diagnostic code #9 This report was dictated in MDT
[2020-01-23] MEDS ORDERED: Potassium Chloride 10 MEQ in Premix Bag 1 BAG IV SCH (16:30)
--- NOTE | 2020-01-23 16:34 | PCM.PN ---
- General Info Date of Service: 01/23/20 Admission Dx/Problem (Free Text): Admission Diagnosis/Problem Admission Diagnosis/Problem Neutropenia 01/23/20 better. still weak and no appetite but no chills or fever. wbc rebounding slightly anc 630 wbc 1.62. k still low and mg 1.8 and replacement ordered. diarrhea slowed down to few times this am. c diff neg. stool cultures pending. on cefapime and vanco . anxious and wants to get up and somewhat weak and rec. pt and he agrees. cognitively doing better lab blood c/s ngsf urine ngsf p.e. lungs clear /decreased cor rrr. abd benign bs active.no tneder . no liver or spleen. skin mild petichea and bruising. neuro aox4 and restless. ext. wnl. voiding without difficulty assess///plan 1) neutropenic fever improved recheck cbc in am cont antibotics 2) diarrhea improved cont advance diet. decrease i.v suppport ? immodium prn . 3) low k cont replacement. 4) weakness p.t . and k replacement. 5)lung ca with mets to liver recheck bmp in am decrease iv to 50 cc hour. boh Subjective Update: faye doing some better. still weak and no appetite but no chills or fever. wbc rebounding slightly anc 630 wbc 1.62. k still low and mg 1.8 and replacement ordered. diarrhea slowed down to few times this am. c diff neg. stool cultures pending. on cefapime and vanco . anxious and wants to get up and somewhat weak and rec. pt and he agrees. cognitively doing better lab blood c/s ngsf urine ngsf p.e. lungs clear /decreased cor rrr. abd benign bs active.no tneder . no liver or spleen. skin mild petichea and bruising. neuro aox4 and restless. ext. wnl. voiding without difficulty assess///plan 1) neutropenic fever improved recheck cbc in am cont antibotics 2) diarrhea improved cont advance diet. immodium prn . 3) low k cont replacement. 4) weakness p.t . and k replacement. 5)lung ca with mets to liver recheck bmp in am decrease iv to 50 cc hour. boh - Review of Systems General: Reports: No Symptoms, Weakness, Fatigue, Malaise, Appetite HEENT: Reports: No Symptoms Pulmonary: Reports: No Symptoms, Shortness of Breath Cardiovascular: Reports: No Symptoms Gastrointestinal: Reports: No Symptoms, Decreased Appetite, Diarrhea Genitourinary: Reports: No Symptoms Musculoskeletal: Reports: No Symptoms Skin: Reports: No Symptoms Neurological: Reports: No Symptoms Psychiatric: Reports: No Symptoms - Patient Data Vitals - Most Recent: Last Vital Signs Temp 36.6 C 01/23/20 16:00 Pulse 85 01/22/20 12:00 Resp 22 H 01/23/20 16:00 BP 148/98 H 01/23/20 16:00 Pulse Ox 95 01/23/20 16:00 Orthostatic Blood Pressure [ 114/79 Standing] Orthostatic Blood Pressure [ 122/81 Sitting] Orthostatic Blood Pressure [ 110/79 Supine] Weight - Most Recent: 70.307 kg I&O - Last 24 Hours: Intake & Output 01/23/20 01/23/20 01/23/20 06:59 14:59 22:59 Intake Total 1628 0 2193 Output Total 1200 Balance 428 0 2193 Lab Results Last 24 Hours: Laboratory Results - last 24 hr 01/21/20 01/22/20 01/23/20 Range/Units 12:58 16:00 06:20 WBC 1.62 L* (4.23-9.07) K/mm3 RBC 3.32 L (4.63-6.08) M/mm3 Hgb 10.0 L (13.7-17.5) gm/dl Hct 31.0 L (40.1-51.0) % MCV 93.4 H (79.0-92.2) fl MCH 30.1 (25.7-32.2) pg MCHC 32.3 (32.2-35.5) g/dl RDW Std Deviation 41.7 (35.1-43.9) fL Plt Count 152 L (163-337) K/mm3 MPV 8.8 L (9.4-12.3) fl Neut % (Auto) 63.6 (34.0-67.9) % Lymph % (Auto) 19.8 L (21.8-53.1) % [place] % (Auto) 16.0 H (5.3-12.2) % Eos % (Auto) 0 L (0.8-7.0) Baso % (Auto) 0.0 L (0.1-1.2) % Neut # (Auto) 1.03 L (1.78-5.38) K/mm3 Lymph # (Auto) 0.32 L (1.32-3.57) K/mm3 [place] # (Auto) 0.26 L (0.30-0.82) K/mm3 Eos # (Auto) 0.00 L (0.04-0.54) K/mm3 Baso # (Auto) 0.00 L (0.01-0.08) K/mm3 Manual Slide Review Abnormal smear PT (9.7-12.0) SECONDS INR APTT (22-31) SECONDS Sodium (136-145) mEq/L Potassium (3.5-5.1) mEq/L Chloride (98-107) mEq/L Carbon Dioxide (21-32) mEq/L Anion Gap (5-15) BUN (7-18) mg/dL Creatinine (0.7-1.3) mg/dL Est Cr Clr Drug Dosing mL/min Estimated GFR (MDRD) (>60) mL/min BUN/Creatinine Ratio (14-18) Glucose (80-115) mg/dL Calcium (8.5-10.1) mg/dL Phosphorus (2.6-4.7) mg/dL Magnesium (1.8-2.4) mg/dl Procalcitonin 0.49 H (<0.10) ng/mL Vancomycin Trough (10.0-20.0) C.difficile 027-NAP1-B1 Presumptive negative C. difficile Tox (PCR) Negative 01/23/20 01/23/20 01/23/20 Range/Units 06:20 06:20 10:40 WBC (4.23-9.07) K/mm3 RBC (4.63-6.08) M/mm3 Hgb (13.7-17.5) gm/dl Hct (40.1-51.0) % MCV (79.0-92.2) fl MCH (25.7-32.2) pg MCHC (32.2-35.5) g/dl RDW Std Deviation (35.1-43.9) fL Plt Count (163-337) K/mm3 MPV (9.4-12.3) fl Neut % (Auto) (34.0-67.9) % Lymph % (Auto) (21.8-53.1) % [place] % (Auto) (5.3-12.2) % Eos % (Auto) (0.8-7.0) Baso % (Auto) (0.1-1.2) % Neut # (Auto) (1.78-5.38) K/mm3 Lymph # (Auto) (1.32-3.57) K/mm3 [place] # (Auto) (0.30-0.82) K/mm3 Eos # (Auto) (0.04-0.54) K/mm3 Baso # (Auto) (0.01-0.08) K/mm3 Manual Slide Review PT 11.9 (9.7-12.0) SECONDS INR 1.10 APTT 31 (22-31) SECONDS Sodium 139 (136-145) mEq/L Potassium 2.9 L (3.5-5.1) mEq/L Chloride 103 (98-107) mEq/L Carbon Dioxide 28 (21-32) mEq/L Anion Gap 10.9 (5-15) BUN 5 L (7-18) mg/dL Creatinine 0.7 (0.7-1.3) mg/dL Est Cr Clr Drug Dosing 95.74 mL/min Estimated GFR (MDRD) > 60 (>60) mL/min BUN/Creatinine Ratio 7.1 L (14-18) Glucose 112 (80-115) mg/dL Calcium 7.9 L (8.5-10.1) mg/dL Phosphorus 2.5 L (2.6-4.7) mg/dL Magnesium 1.9 (1.8-2.4) mg/dl Procalcitonin (<0.10) ng/mL Vancomycin Trough 8.8 L (10.0-20.0) C.difficile 027-NAP1-B1 C. difficile Tox (PCR) Ez Results Last 24 Hours: Microbiology 01/21/20 15:22 Aerobic Blood Culture - Preliminary Blood - Venous - Lab Draw NO GROWTH AFTER 2 DAYS Anaerobic Blood Culture - Preliminary NO GROWTH AFTER 2 DAYS 01/21/20 15:14 Aerobic Blood Culture - Preliminary Blood - Venous NO GROWTH AFTER 2 DAYS Anaerobic Blood Culture - Preliminary NO GROWTH AFTER 2 DAYS 01/22/20 23:40 Stool for WBCs - Final Stool / Feces NO WBC SEEN REFERENCE RANGE: NO WBC SEEN Med Orders - Current: Current Medications Famotidine (Pepcid) 20 mg PO DAILY [facility] Last Admin: 01/23/20 10:51 Dose: 20 mg Documented by: Lactated Ringer's (Ringers, Lactated) 1,000 mls @ 50 mls/hr IV ASDIRECTED [facility] Last Admin: 01/23/20 16:15 Dose: 125 mls/hr Documented by: Cefepime HCl 2 gm/ Premix 50 mls @ 100 mls/hr IV Q8H [facility] Last Admin: 01/23/20 10:52 Dose: 100 mls/hr Documented by: Vancomycin HCl 1 gm/Vancomycin HCl 250 mg/ Sodium Chloride 250 mls @ 166.667 mls/hr IV Q12H [facility] Potassium Chloride 10 meq/ (Premix) 100 mls @ 100 mls/hr IV Q1H [facility] Stop: 01/23/20 20:29 Sodium Chloride (Saline Flush) 10 ml FLUSH ASDIRECTED PRN PRN Reason: Keep Vein Open Last Admin: 01/21/20 14:20 Dose: 10 ml Documented by: Vancomycin HCl (Pharmacy To Dose - Vancomycin) 1 dose .XX ASDIRECTED PRN PRN Reason: RX TO DOSE VANCO Discontinued Medications Acetaminophen (Tylenol) 650 mg PO ONETIME ONE Stop: 01/21/20 14:35 Last Admin: 01/21/20 15:29 Dose: Not Given Documented by: Alprazolam (Xanax) 0.5 mg PO NOW ONE Stop: 01/23/20 10:42 Last Admin: 01/23/20 10:52 Dose: 0.5 mg Documented by: Gadobenate Dimeglumine (Multihance) 14 ml IVPUSH ONETIME ONE Stop: 01/23/20 11:07 Last Admin: 01/23/20 11:50 Dose: 14 ml Documented by: Dextrose/Sodium Chloride (Dextrose 5%-Normal Saline) 1,000 mls @ 999 mls/hr IV ASDIRECTED [facility] Last Admin: 01/21/20 14:18 Dose: 999 mls/hr Documented by: Ampicillin Sodium/Sulbactam (Sodium 3 gm/ Sodium Chloride) 100 mls @ 200 mls/hr IV ONETIME ONE Stop: 01/21/20 15:02 Last Admin: 01/21/20 15:52 Dose: 200 mls/hr Documented by: Potassium Chloride 10 meq/ (Premix) 100 mls @ 100 mls/hr IV Q1H [facility] Stop: 01/21/20 19:44 Last Admin: 01/21/20 19:54 Dose: 100 mls/hr Documented by: Vancomycin HCl 1.75 gm/ Sodium (Chloride) 500 mls @ 250 mls/hr IV ONETIME ONE Stop: 01/21/20 14:38 Last Admin: 01/21/20 15:54 Dose: 250 mls/hr Documented by: Dextrose/Sodium Chloride (Dextrose 5%-Normal Saline) 1,000 mls @ 125 mls/hr IV ASDIRECTED [facility] Last Admin: 01/22/20 06:59 Dose: 125 mls/hr Documented by: Potassium Phosphate 60 mmole/ (Sodium Chloride) 1,020 mls @ 102 mls/hr IV ONETIME ONE Stop: 01/22/20 20:59 Last Admin: 01/22/20 11:08 Dose: 102 mls/hr Documented by: Magnesium Sulfate 4 gm/ Premix 100 mls @ 25 mls/hr IV ONETIME ONE Stop: 01/22/20 14:59 Magnesium Sulfate 4 gm/ Premix 50 mls @ 12.5 mls/hr IV ONETIME ONE Stop: 01/22/20 14:59 Magnesium Sulfate 4 gm/ Premix 100 mls @ 25 mls/hr IV ONETIME ONE Stop: 01/22/20 14:59 Last Admin: 01/22/20 11:09 Dose: 25 mls/hr Documented by: Vancomycin HCl 1 gm/ Sodium (Chloride) 250 mls @ 250 mls/hr IV Q12H [facility] Last Admin: 01/23/20 10:59 Dose: 250 mls/hr Documented by: Magnesium Sulfate 4 gm/ Premix 100 mls @ 25 mls/hr IV ONETIME ONE Stop: 01/23/20 13:59 Last Admin: 01/23/20 10:52 Dose: 25 mls/hr Documented by: Potassium Chloride 10 meq/ (Premix) 100 mls @ 100 mls/hr IV Q1H [facility] Stop: 01/23/20 15:59 Last Admin: 01/23/20 16:14 Dose: 100 mls/hr Documented by: Magnesium Sulfate/Dextrose 1 (gm/ Premix) 100 mls @ 100 mls/hr IV Q1H [facility] Stop: 01/23/20 18:29 Sodium Chloride (Saline Flush) 10 ml FLUSH ASDIRECTED [facility] Stop: 01/23/20 13:00 Last Admin: 01/23/20 11:50 Dose: 10 ml Documented by: - Exam General: Alert, Oriented HEENT: Pupils Equal, Pupils Reactive, EOMI, Mucous Membr. Moist/[place] Neck: Supple Lungs: Clear to Auscultation, Normal Respiratory Effort, Decreased Breath Sounds Cardiovascular: Regular Rate, Regular Rhythm GI/Abdominal Exam: Normal Bowel Sounds, Soft, Non-Tender, No Organomegaly, No Distention, No Abnormal Bruit, No Mass, Pelvis Stable (Male) Exam: No Hernia, Normal Inspection, Normal Prostate, Circumcised Back Exam: Normal Inspection, Full Range of Motion Extremities: Normal Inspection, Normal Range of Motion, Non-Tender, No Pedal Edema, Normal Capillary Refill Skin: Warm, Dry, Intact Wound/Incisions: Healing Well Neurological: No New Focal Deficit Psy/Mental Status: Alert, Normal Affect, Normal Mood Sepsis Event Note - Evaluation Sepsis Screening Result: No Definite Risk Current Stage of Sepsis: Sepsis Possible Source of Sepsis: Other (neutropenic fever) - Focused Exam Sepsis Event Note Statement: Focused Sepsis Exam Completed Vital Signs: Vital Signs Temp Resp BP Pulse Ox 01/23/20 16:00 36.6 C 22 H 148/98 H 95 01/23/20 12:00 36.8 C 31 H 128/96 H 94 L 01/23/20 08:00 37.0 C 18 133/79 94 L Capillary Refill, Detail: Greater than (>) 2 Seconds Pulse Description: 2+ Normal Peripheral Pulse Location: Radial Skin Exam (Focused Sepsis): Normal Tur[place] Date Exam was Performed: 01/23/20 Time Exam was Performed: 16:48 - Bedside Monitoring Bedside Ultrasound Performed: No Date Bedside Monitoring was Performed: 01/23/20 Time Bedside Monitoring was Performed: 16:48 - Problem List & Annotations (1) Hypomagnesemia with secondary hypocalcemia SNOMED Code(s): 417686227 Code(s): E83.42 - HYPOMAGNESEMIA; E83.51 - HYPOCALCEMIA Status: Acute Priority: Medium Current Visit: Yes Onset Date: ~01/22/20 (2) Acute febrile illness SNOMED Code(s): 032827633 Code(s): R50.9 - FEVER, UNSPECIFIED Status: Acute Priority: High C urrent Visit: Yes Onset Date: ~01/22/20 (3) COPD (chronic obstructive pulmonary disease) SNOMED Code(s): 59326556 Code(s): J44.9 - CHRONIC OBSTRUCTIVE PULMONARY DISEASE, UNSPECIFIED Status: Acute Priority: Medium Current Visit: Yes Onset Date: ~01/22/20 Qualifiers: Chronic bronchitis type: simple (4) Diarrhea SNOMED Code(s): 25589032 Code(s): R19.7 - DIARRHEA, UNSPECIFIED Status: Acute Priority: High Current Visit: Yes Onset Date: ~01/22/20 Annotation/Comment:: c diff and stool cultures normal (5) Generalized weakness SNOMED Code(s): 02977529 Code(s): R53.1 - WEAKNESS Status: Acute Priority: Medium Current Visit: Yes Onset Date: ~01/22/20 (6) Hypoalbuminemia SNOMED Code(s): 044240384 Code(s): E88.09 - OTH DISORDERS OF PLASMA-PROTEIN METABOLISM, NEC Status: Acute Priority: Medium Current Visit: Yes Onset Date: ~01/22/20 Annotation/Comment:: nutrition poor sec to (7) Hypokalemia SNOMED Code(s): 79546703 Code(s): E87.6 - HYPOKALEMIA Status: Acute Priority: Medium Current Visit: Yes Onset Date: ~01/22/20 Annotation/Comment:: replaced massive k deficit with mag and k - Problem List Review Problem List Initiated/Reviewed/Updated: Yes - My Orders Last 24 Hours: My Active Orders 01/23/20 16:30 Potassium Chloride [KCl 10 MEQ in Water 100 ML] 10 meq Premix Bag 1 bag IV Q1H - Plan Plan:: ASSESSMENT This is a 69-year-old male with no significant past medical history who was diagnosed with metastatic lung cancer to liver about 6 weeks ago. Patient came in for worsening weakness and episode of confusion with disorientation day prior. Intermittent coughing for the past 2 to 3 weeks, described as dry Started chemotherapy 3 weeks ago, is getting doses on Wednesdays, third dose due this Tuesday Found to be tachycardic and hypoxemic in the ED, neutropenic, hypokalemic, hy pophosphatemic and volume depleted better. still weak and no appetite but no chills or fever. wbc rebounding slightly anc 630 wbc 1.62. k still low and mg 1.8 and replacement ordered. diarrhea slowed down to few times this am. c diff neg. stool cultures pending. on cefapime and vanco . anxious and wants to get up and somewhat weak and rec. pt and he agrees. cognitively doing better lab blood c/s ngsf urine ngsf p.e. lungs clear /decreased cor rrr. abd benign bs active.no tneder . no liver or spleen. skin mild petichea and bruising. neuro aox4 and restless. ext. wnl. voiding without difficulty assess///plan 1) neutropenic fever improved recheck cbc in am cont antibotics 2) diarrhea improved cont advance diet. immodium prn . 3) low k cont replacement. 4) weakness p.t . and k replacement. 5)lung ca with mets to liver recheck bmp in am decrease iv to 50 cc hour. boh
[2020-01-23] MEDS ORDERED: ALPRAZolam 0.5 MG Tab PO PRN ×2 (17:51→18:00)
[2020-01-23] MEDS ORDERED: Prochlorperazine 5 MG Tab PO PRN (17:51)
[2020-01-23] MEDS ORDERED: Ondansetron 4 MG Tab.DIS PO PRN (17:51)
[2020-01-23] MEDS ORDERED: Loperamide 2 MG Cap PO PRN (17:59)
[2020-01-23] MEDS ORDERED: Dexamethasone 4 MG Tab PO ONE (18:00)
[2020-01-23] MEDS: Vancomycin 1 GM, Vancomycin 250 MG in Sodium Chloride 0.9% 250 ML IV SCH (20:38)
[2020-01-23] MEDS: Morphine 15 MG Tab.ER PO SCH (20:43)
[2020-01-23] MEDS: ClonazePAM 0.5 MG Tab PO PRN (20:44)
[2020-01-24] MEDS: Cefepime 2 GM in Premix Bag 1 BAG IV SCH ×3 (02:37→18:23)
[2020-01-24] MEDS: oxyCODONE 5 MG Tab PO PRN ×4 (04:25→20:27)
[2020-01-24] MEDS: ClonazePAM 0.5 MG Tab PO PRN ×2 (07:51→22:14)
[2020-01-24] MEDS: Morphine 15 MG Tab.ER PO SCH ×2 (07:51→09:31)
[2020-01-24] MEDS: Vancomycin 1 GM, Vancomycin 250 MG in Sodium Chloride 0.9% 250 ML IV SCH ×2 (07:52→20:21)
[2020-01-24] MEDS: Famotidine 20 MG Tab PO SCH ×2 (07:52→09:24)
[2020-01-24] MEDS ORDERED: OLANZapine 5 MG Tab PO SCH (09:00)
--- NOTE | 2020-01-24 12:05 | PCM.PN ---
- General Info Date of Service: 01/24/20 Admission Dx/Problem (Free Text): Admission Diagnosis/Problem Admission Diagnosis/Problem Neutropenia 01/23/20 better. still weak and no appetite but no chills or fever. wbc rebounding slightly anc 630 wbc 1.62. k still low and mg 1.8 and replacement ordered. diarrhea slowed down to few times this am. c diff neg. stool cultures pending. on cefapime and vanco . anxious and wants to get up and somewhat weak and rec. pt and he agrees. cognitively doing better lab blood c/s ngsf urine ngsf p.e. lungs clear /decreased cor rrr. abd benign bs active.no tneder . no liver or spleen. skin mild petichea and bruising. neuro aox4 and restless. ext. wnl. voiding without difficulty assess///plan 1) neutropenic fever improved recheck cbc in am cont antibotics 2) diarrhea improved cont advance diet. decrease i.v suppport ? immodium prn . 3) low k cont replacement. 4) weakness p.t . and k replacement. 5)lung ca with mets to liver recheck bmp in am decrease iv to 50 cc hour. boh 01/24/20 afebrile vss i.v. at 50 cc hour. off o2. more alerta nd sitting up . c/o esophageal pain . with swallowing. abd better diarrhea decreased with no immodium lungs decreased left and dullness on rt cor rrr syst murmur 2/6 abd benign. chest bruising and mild tenderness. skin bruising mild. assess neutropenia improving . staghorn calc. in left [place] nd non obstructing rt renal stone. liver mets and no adrenal mets seen. no pylo nephritis weakness improved some / needs p.t. and home helath consult sec to cares and weakness. esophagitis start rinse and topical and difucan ? endoscopy steriods cont taper but discuss with DR Tesfaye. need quicker taper sec to esophagitis boh Subjective Update: faye doing some better. still weak and no appetite but no chills or fever. wbc rebounding slightly anc 630 wbc 1.62. k still low and mg 1.8 and replacement ordered. diarrhea slowed down to few times this am. c diff neg. stool cultures pending. on cefapime and vanco . anxious and wants to get up and somewhat weak and rec. pt and he agrees. cognitively doing better lab blood c/s ngsf urine ngsf p.e. lungs clear /decreased cor rrr. abd benign bs active.no tneder . no liver or spleen. skin mild petichea and bruising. neuro aox4 and restless. ext. wnl. voiding without difficulty assess///plan 1) neutropenic fever improved recheck cbc in am cont antibotics 2) diarrhea improved cont advance diet. immodium prn . 3) low k cont replacement. 4) weakness p.t . and k replacement. 5)lung ca with mets to liver recheck bmp in am decrease iv to 50 cc hour. boh 01/24/20 afebrile vss i.v. at 50 cc hour. off o2. more alerta nd sitting up . c/o esophageal pain . with swallowing. abd better diarrhea decreased with no immodium lungs decreased left and dullness on rt cor rrr syst murmur 2/6 abd benign. chest bruising and mild tenderness. skin bruising mild. assess neutropenia improving . staghorn calc. in left [place] nd non obstructing rt renal stone. liver mets and no adrenal mets seen. no pylo nephritis weakness improved some / needs p.t. and home helath consult sec to cares and weakness. esophagitis start rinse and topical and difucan ? endoscopy steroids cont taper but discuss with DR Tesfaye. need quicker taper sec to esophagitis boh - Review of Systems General: Reports: No Symptoms, Weakness, Fatigue HEENT: Reports: No Symptoms Pulmonary: Reports: No Symptoms Cardiovascular: Reports: No Symptoms Gastrointestinal: Reports: No Symptoms Genitourinary: Reports: No Symptoms Musculoskeletal: Reports: No Symptoms Skin: Reports: No Symptoms Neurological: Reports: No Symptoms Psychiatric: Reports: No Symptoms - Patient Data Vitals - Most Recent: Last Vital Signs Temp 35.8 C L 01/24/20 07:46 Pulse 85 01/22/20 12:00 Resp 18 01/24/20 07:46 BP 122/89 01/24/20 07:46 Pulse Ox 93 L 01/24/20 07:46 Orthostatic Blood Pressure [ 114/79 Standing] Orthostatic Blood Pressure [ 122/81 Sitting] Orthostatic Blood Pressure [ 110/79 Supine] Weight - Most Recent: 66.678 kg I&O - Last 24 Hours: Intake & Output 01/23/20 01/24/20 01/24/20 22:59 06:59 14:59 Intake Total 2443 1092 Output Total 1500 1500 Balance 943 -408 Ez Results Last 24 Hours: Microbiology 01/22/20 23:40 Cryptosporidium/Giardia - Final Stool / Feces 01/22/20 23:40 Shiga Toxin I & II - Final Stool / Feces 01/21/20 15:22 Aerobic Blood Culture - Preliminary Blood - Venous - Lab Draw NO GROWTH AFTER 2 DAYS Anaerobic Blood Culture - Preliminary NO GROWTH AFTER 2 DAYS 01/21/20 15:14 Aerobic Blood Culture - Preliminary Blood - Venous NO GROWTH AFTER 2 DAYS Anaerobic Blood Culture - Preliminary NO GROWTH AFTER 2 DAYS 01/22/20 23:40 Stool for WBCs - Final Stool / Feces NO WBC SEEN REFERENCE RANGE: NO WBC SEEN Med Orders - Current: Current Medications Clonazepam (Klonopin) 0.5 mg PO BID PRN PRN Reason: Anxiety Last Admin: 01/24/20 07:51 Dose: 0.5 mg Documented by: Clotrimazole (Mycelex) 10 mg PO 5XDAY [facility] Famotidine (Pepcid) 20 mg PO DAILY [facility] Last Admin: 01/24/20 09:24 Dose: Not Given Documented by: Cefepime HCl 2 gm/ Premix 50 mls @ 100 mls/hr IV Q8H [facility] Last Admin: 01/24/20 10:32 Dose: 100 mls/hr Documented by: Vancomycin HCl 1 gm/Vancomycin HCl 250 mg/ Sodium Chloride 250 mls @ 166.667 mls/hr IV Q12H [facility] Last Admin: 01/24/20 07:52 Dose: 166.667 mls/hr Documented by: Lactated Ringer's (Ringers, Lactated) 1,000 mls @ 50 mls/hr IV ASDIRECTED [facility] Last Admin: 01/24/20 10:32 Dose: 50 mls/hr Documented by: Loperamide HCl (Imodium) 2 mg PO Q6H PRN PRN Reason: Diarrhea Morphine Sulfate (Ms Contin) 15 mg PO BID [facility] Last Admin: 01/24/20 09:31 Dose: Not Given Documented by: Ondansetron HCl (Zofran Odt) 8 mg PO Q8H PRN PRN Reason: Pain Oxycodone HCl (Oxycodone) 5 mg PO Q6H PRN PRN Reason: Pain Last Admin: 01/24/20 10:56 Dose: 5 mg Documented by: Prochlorperazine Maleate (Compazine) 10 mg PO Q6H PRN PRN Reason: Nausea Last Admin: 01/24/20 10:55 Dose: 10 mg Documented by: Sodium Chloride (Saline Flush) 10 ml FLUSH ASDIRECTED PRN PRN Reason: Keep Vein Open Last Admin: 01/21/20 14:20 Dose: 10 ml Documented by: Vancomycin HCl (Pharmacy To Dose - Vancomycin) 1 dose .XX ASDIRECTED PRN PRN Reason: RX TO DOSE VANCO Discontinued Medications Acetaminophen (Tylenol) 650 mg PO ONETIME ONE Stop: 01/21/20 14:35 Last Admin: 01/21/20 15:29 Dose: Not Given Documented by: Alprazolam (Xanax) 0.5 mg PO NOW ONE Stop: 01/23/20 10:42 Last Admin: 01/23/20 10:52 Dose: 0.5 mg Documented by: Alprazolam (Xanax) 0.5 mg PO ONETIME PRN PRN Reason: Anxiety Alprazolam (Xanax) 0.5 mg PO BID PRN PRN Reason: Anxiety Dexamethasone (Dexamethasone) 8 mg PO ONETIME ONE Stop: 01/23/20 18:01 Last Admin: 01/23/20 18:17 Dose: 8 mg Documented by: Gadobenate Dimeglumine (Multihance) 14 ml IVPUSH ONETIME ONE Stop: 01/23/20 11:07 Last Admin: 01/23/20 11:50 Dose: 14 ml Documented by: Heparin Sodium (Porcine) (Heparin Lock Flush 100 Units/Ml) 500 units FLUSH ONETIME ONE Stop: 01/24/20 10:23 Last Admin: 01/24/20 10:42 Dose: 500 units Documented by: Dextrose/Sodium Chloride (Dextrose 5%-Normal Saline) 1,000 mls @ 999 mls/hr IV ASDIRECTED [facility] Last Admin: 01/21/20 14:18 Dose: 999 mls/hr Documented by: Ampicillin Sodium/Sulbactam (Sodium 3 gm/ Sodium Chloride) 100 mls @ 200 mls/hr IV ONETIME ONE Stop: 01/21/20 15:02 Last Admin: 01/21/20 15:52 Dose: 200 mls/hr Documented by: Potassium Chloride 10 meq/ (Premix) 100 mls @ 100 mls/hr IV Q1H [facility] Stop: 01/21/20 19:44 Last Admin: 01/21/20 19:54 Dose: 100 mls/hr Documented by: Vancomycin HCl 1.75 gm/ Sodium (Chloride) 500 mls @ 250 mls/hr IV ONETIME ONE Stop: 01/21/20 14:38 Last Admin: 01/21/20 15:54 Dose: 250 mls/hr Documented by: Dextrose/Sodium Chloride (Dextrose 5%-Normal Saline) 1,000 mls @ 125 mls/hr IV ASDIRECTED [facility] Last Admin: 01/22/20 06:59 Dose: 125 mls/hr Documented by: Lactated Ringer's (Ringers, Lactated) 1,000 mls @ 50 mls/hr IV ASDIRECTED [facility] Last Admin: 01/23/20 16:15 Dose: 125 mls/hr Documented by: Potassium Phosphate 60 mmole/ (Sodium Chloride) 1,020 mls @ 102 mls/hr IV ONETIME ONE Stop: 01/22/20 20:59 Last Admin: 01/22/20 11:08 Dose: 102 mls/hr Documented by: Magnesium Sulfate 4 gm/ Premix 100 mls @ 25 mls/hr IV ONETIME ONE Stop: 01/22/20 14:59 Magnesium Sulfate 4 gm/ Premix 50 mls @ 12.5 mls/hr IV ONETIME ONE Stop: 01/22/20 14:59 Magnesium Sulfate 4 gm/ Premix 100 mls @ 25 mls/hr IV ONETIME ONE Stop: 01/22/20 14:59 Last Admin: 01/22/20 11:09 Dose: 25 mls/hr Documented by: Vancomycin HCl 1 gm/ Sodium (Chloride) 250 mls @ 250 mls/hr IV Q12H [facility] Last Admin: 01/23/20 10:59 Dose: 250 mls/hr Documented by: Magnesium Sulfate 4 gm/ Premix 100 mls @ 25 mls/hr IV ONETIME ONE Stop: 01/23/20 13:59 Last Admin: 01/23/20 10:52 Dose: 25 mls/hr Documented by: Potassium Chloride 10 meq/ (Premix) 100 mls @ 100 mls/hr IV Q1H [facility] Stop: 01/23/20 15:59 Last Admin: 01/23/20 20:11 Dose: 100 mls/hr Documented by: Magnesium Sulfate/Dextrose 1 (gm/ Premix) 100 mls @ 100 mls/hr IV Q1H [facility] Stop: 01/23/20 18:29 Potassium Chloride 10 meq/ (Premix) 100 mls @ 100 mls/hr IV Q1H [facility] Stop: 01/23/20 20:29 Last Admin: 01/23/20 16:44 Dose: Not Given Documented by: Olanzapine (Zyprexa) 10 mg PO DAILY [facility] Sodium Chloride (Saline Flush) 10 ml FLUSH ASDIRECTED [facility] Stop: 01/23/20 13:00 Last Admin: 01/23/20 11:50 Dose: 10 ml Documented by: - Exam General: Alert, Oriented HEENT: Pupils Equal, Pupils Reactive, EOMI, Mucous Membr. Moist/[place] Neck: Supple Lungs: Clear to Auscultation, Normal Respiratory Effort Cardiovascular: Regular Rate, Regular Rhythm GI/Abdominal Exam: Normal Bowel Sounds, Soft, Non-Tender, No Organomegaly, No Distention, No Abnormal Bruit, No Mass, Pelvis Stable (Male) Exam: No Hernia, Normal Inspection, Normal Prostate, Circumcised Back Exam: Normal Inspection, Full Range of Motion Extremities: Normal Inspection, Normal Range of Motion, Non-Tender, No Pedal Edema, Normal Capillary Refill Skin: Warm, Dry, Intact Wound/Incisions: Healing Well Neurological: No New Focal Deficit Psy/Mental Status: Alert, Normal Affect, Normal Mood Sepsis Event Note - Evaluation Sepsis Screening Result: Sepsis Risk - Focused Exam Vital Signs: Vital Signs Temp Resp BP Pulse Ox 01/24/20 07:46 35.8 C L 18 122/89 93 L 01/24/20 04:00 36.6 C 18 137/94 H 94 L 01/24/20 00:00 36.9 C 18 106/77 92 L Date Exam was Performed: 01/24/20 Time Exam was Performed: 11:57 - Problem List & Annotations (1) Hypomagnesemia with secondary hypocalcemia SNOMED Code(s): 239820995 Code(s): E83.42 - HYPOMAGNESEMIA; E83.51 - HYPOCALCEMIA Status: Acute Priority: Low Current Visit: Yes Onset Date: ~01/22/20 (2) Acute febrile illness SNOMED Code(s): 173648003 Code(s): R50.9 - FEVER, UNSPECIFIED Status: Acute Priority: High Current Visit: Yes Onset Date: ~01/22/20 (3) COPD (chronic obstructive pulmonary disease) SNOMED Code(s): 46658214 Code(s): J44.9 - CHRONIC OBSTRUCTIVE PULMONARY DISEASE, UNSPECIFIED Status: Acute Priority: Medium Current Visit: Yes Onset Date: ~01/22/20 Qualifiers: Chronic bronchitis type: simple (4) Diarrhea SNOMED Code(s): 13057483 Code(s): R19.7 - DIARRHEA, UNSPECIFIED Status: Acute Priority: High Current Visit: Yes Onset Date: ~01/22/20 Annotation/Comment:: c diff and stool cultures normal (5) Generalized weakness SNOMED Code(s): 05728610 Code(s): R53.1 - WEAKNESS Status: Acute Priority: Medium Current Visit: Yes Onset Date: ~01/22/20 (6) Hypoalbuminemia SNOMED Code(s): 966726138 Code(s): E88.09 - OTH DISORDERS OF PLASMA-PROTEIN METABOLISM, NEC Status: Acute Priority: Medium Current Visit: Yes Onset Date: ~01/22/20 Annotation/Comment:: nutrition poor sec to (7) Hypokalemia SNOMED Code(s): 57111990 Code(s): E87.6 - HYPOKALEMIA Status: Acute Priority: Medium Current Visit: Yes Onset Date: ~01/22/20 Annotation/Comment:: replaced massive k deficit with mag and k (8) Metastatic carcinoma to liver SNOMED Code(s): 55016401, 464038168 Code(s): C78.7 - SECONDARY MALIG NEOPLASM OF LIVER AND INTRAHEPATIC BILE DUCT Status: Acute Priority: High Current Visit: Yes Onset Date: ~01/24/20 (9) Personal history of immunocompromised state SNOMED Code(s): 091490533 Code(s): Z86.2 - PRSNL HISTORY OF DIS OF THE BLD/BLD-FORM ORG/IMMUN MECHNSM Status: Acute Priority: High Current Visit: Yes Onset Date: ~01/24/20 Annotation/Comment:: neutropenia improving (10) Primary lung cancer SNOMED Code(s): 08936943 Code(s): C34.90 - MALIGNANT NEOPLASM OF UNSP PART OF UNSP BRONCHUS OR LUNG Status: Acute Priority: High Current Visit: Yes Onset Date: ~01/24/20 Qualifiers: Laterality: left Qualified Code(s): C34.92 - Malignant neoplasm of unspecified part of left bronchus or lung (11) Sinus tachycardia SNOMED Code(s): 86469795 Code(s): R00.0 - TACHYCARDIA, UNSPECIFIED Status: Acute Priority: High Current Visit: Yes Onset Date: ~01/24/20 - Problem List Review Problem List Initiated/Reviewed/Updated: Yes - My Orders Last 24 Hours: My Active Orders 01/23/20 16:00 Lactated Ringers [Ringers, Lactated] 1,000 ml IV ASDIRECTED 01/23/20 17:51 ClonazePAM [KlonoPIN] 0.5 mg PO BID PRN Ondansetron [Zofran ODT] 8 mg PO Q8H PRN Prochlorperazine [Compazine] 10 mg PO Q6H PRN oxyCODONE 5 mg PO Q6H PRN 01/23/20 17:59 Loperamide [Imodium] 2 mg PO Q6H PRN 01/23/20 21:00 Morphine [MS Contin] 15 mg PO BID 01/24/20 11:48 CBC WITH AUTO DIFF [HEME] Routine 01/24/20 11:49 CMP [COMPREHENSIVE METABOLIC PN,CMP] [CHEM] Routine 01/24/20 11:50 LACTIC ACID [CHEM] Routine 01/24/20 14:00 Clotrimazole [Mycelex] 10 mg PO - Plan Plan:: ASSESSMENT This is a 69-year-old male with no significant past medical history who was diagnosed with metastatic lung cancer to liver about 6 weeks ago. Patient came in for worsening weakness and episode of confusion with disorientation day prior. Intermittent coughing for the past 2 to 3 weeks, described as dry Started chemotherapy 3 weeks ago, is getting doses on Wednesdays, third dose due this Tuesday Found to be tachycardic and hypoxemic in the ED, neutropenic, hypokalemic, hypophosphatemic and volume depleted better. still weak and no appetite but no chills or fever. wbc rebounding slightly anc 630 wbc 1.62. k still low and mg 1.8 and replacement ordered. diarrhea slowed down to few times this am. c diff neg. stool cultures pending. on cefapime and vanco . anxious and wants to get up and somewhat weak and rec. pt and he agrees. cognitively doing better lab blood c/s ngsf urine ngsf p.e. lungs clear /decreased cor rrr. abd benign bs active.no tneder . no liver or spleen. skin mild petichea and bruising. neuro aox4 and restless. ext. wnl. voiding without difficulty assess///plan 1) neutropenic fever improved recheck cbc in am cont antibotics 2) diarrhea improved cont advance diet. immodium prn . 3) low k cont replacement. 4) weakness p.t . and k replacement. 5)lung ca with mets to liver recheck bmp in am decrease iv to 50 cc hour. boh 01/24/20 afebrile vss i.v. at 50 cc hour. off o2. more alerta nd sitting up . c/o esophageal pain . with swallowing. abd better diarrhea decreased with no immodium lungs decreased left and dullness on rt cor rrr syst murmur 2/6 abd benign. chest bruising and mild tenderness. skin bruising mild. assess neutropenia improving . staghorn calc. in left [place] nd non obstructing rt renal stone. liver mets and no adrenal mets seen. no pylo nephritis weakness improved some / needs p.t. and home helath consult sec to cares and weakness. esophagitis start rinse and topical and difucan ? endoscopy steriods cont taper but discuss with DR Tesfaye. need quicker taper sec to esophagitis boh
[2020-01-24] MEDS: Diphenhydramine/Lidocaine/MagAl/Simethicone 119 ML Bottle PO PRN ×2 (13:35→18:26)
[2020-01-24] MEDS: Clotrimazole 10 MG Troche PO SCH ×3 (13:42→22:14)
[2020-01-24] MEDS ORDERED: Fluconazole Susp 10 MG/1 ML 35 ML Bottle PO SCH (14:00)
--- NOTE | 2020-01-24 15:29 | PCM.SN.2 ---
- Free Text/Narrative Note: face to face meeting with pt and family regarding home helath needs. patient has neutropenia ,gen.weakness and decreased activity tolerance. patient in need of home health care for low activity tolerance and decreased mobility ,standing balance, strength, transfer training. nursing for pain assess and mangament ,vitals,skilled assessment ,med. education,disease management,and disease edu. physical therapy for pt for balance training,gait training,manual therapy ,neuromusc. reduction,theraputic exercises and transfer assist and training. patient is currently homebound related to being walker dependent, decreased activity tolerance and a decreased level of endurance. patient will be followed by his primary care provider. boh
[2020-01-24] MEDS: Nicotine 21 MG/24 Hr Patch TRDERM SCH (16:56)
[2020-01-24] MEDS: Dexamethasone 4 MG Tab PO SCH (20:27)
[2020-01-25] MEDS: Cefepime 2 GM in Premix Bag 1 BAG IV SCH ×2 (02:29→10:34)
[2020-01-25] MEDS: oxyCODONE 5 MG Tab PO PRN ×2 (03:08→09:37)
[2020-01-25] MEDS: Clotrimazole 10 MG Troche PO SCH ×5 (06:17→21:43)
[2020-01-25] MEDS ORDERED: Fluconazole 100 MG Tab PO ONE (09:00)
[2020-01-25] MEDS: Vancomycin 1 GM, Vancomycin 250 MG in Sodium Chloride 0.9% 250 ML IV SCH (09:27)
[2020-01-25] MEDS: Dexamethasone 4 MG Tab PO SCH ×2 (09:28→20:09)
[2020-01-25] MEDS: Nicotine 21 MG/24 Hr Patch TRDERM SCH (09:28)
[2020-01-25] MEDS: Famotidine 20 MG Tab PO SCH (09:28)
[2020-01-25] MEDS: ClonazePAM 0.5 MG Tab PO PRN (09:37)
[2020-01-25] MEDS: Diphenhydramine/Lidocaine/MagAl/Simethicone 119 ML Bottle PO PRN (12:53)
--- NOTE | 2020-01-25 17:47 | PCM.PN ---
- General Info Date of Service: 01/25/20 Admission Dx/Problem (Free Text): neutropenic sepsis with ms changes Subjective Update: faye doing some better. still weak and no appetite but no chills or fever. wbc rebounding slightly anc 630 wbc 1.62. k still low and mg 1.8 and replacement ordered. diarrhea slowed down to few times this am. c diff neg. stool cultures pending. on cefapime and vanco . anxious and wants to get up and somewhat weak and rec. pt and he agrees. cognitively doing better lab blood c/s ngsf urine ngsf p.e. lungs clear /decreased cor rrr. abd benign bs active.no tneder . no liver or spleen. skin mild petichea and bruising. neuro aox4 and restless. ext. wnl. voiding without difficulty assess///plan 1) neutropenic fever improved recheck cbc in am cont antibotics 2) diarrhea improved cont advance diet. immodium prn . 3) low k cont replacement. 4) weakness p.t . and k replacement. 5)lung ca with mets to liver recheck bmp in am decrease iv to 50 cc hour. boh 01/24/20 afebrile vss i.v. at 50 cc hour. off o2. more alerta nd sitting up . c/o esophageal pain . with swallowing. abd better diarrhea decreased with no immodium lungs decreased left and dullness on rt cor rrr syst murmur 2/6 abd benign. chest bruising and mild tenderness. skin bruising mild. assess neutropenia improving . staghorn calc. in left [place] nd non obstructing rt renal stone. liver mets and no adrenal mets seen. no pylo nephritis weakness improved some / needs p.t. and home helath consult sec to cares and weakness. esophagitis start rinse and topical and difucan ? endoscopy steroids cont taper but discuss with DR Tesfaye. need quicker taper sec to esophagitis boh 01/25/20 afebrile vss confused and confabulating some/ no tremor/ stiffness/ seizure like symptoms.no asterixis recognizes daughter/ increased alcohol intake 6-8 beers day and more on weekends sometimes. no hx of etoh stoppage and last drink 5 days ago by hx.(day before admission) discussed other sedating and cognitive affecting meds . has been on clonazepam here but not at home. also no benadryl or promethazine. on risperdol since admission but no folate or thiamine. p.e. stable but confused / no focal neuro signs / rj normal/ balance mildly impaired. speech clear but slurry and tangental. no cn findings. lung sounds grossly decreased rt assess lung cancer stable. neutropenia resolved/ blood c/s neg but cont antibiotic and switch to oral augmentin.x 7 days esophageal symptoms start emperic valcyclovir. for possible herpes esophagitis. 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 cont weaning i.v support and start reg diet. treat possble thrush esophagitis thiamine and b complex x 6 months / avoid reintroducing etoh but daughter states that won't fly . no hard features of werneches but monitor symptoms . coordinate ongoing care with oncology and home health indicated . not sure he will comply . plan see orders Functional Status: Reports: Pain Controlled - Review of Systems General: Reports: Weakness, Other (confusion) Pulmonary: Reports: Shortness of Breath Cardiovascular: Reports: No Symptoms Gastrointestinal: Reports: No Symptoms Genitourinary: Reports: No Symptoms Musculoskeletal: Reports: No Symptoms Skin: Reports: No Symptoms Neurological: Reports: No Symptoms, Confusion, Gait Disturbance. Denies: Dizziness, Headache, Paresthesia, Seizure, Tremors, Change in Speech Psychiatric: Reports: No Symptoms, Confusion - Patient Data Vitals - Most Recent: Last Vital Signs Temp 35.9 C L 01/25/20 12:56 Pulse 72 01/25/20 12:57 Resp 16 01/25/20 12:56 BP 142/84 H 01/25/20 12:57 Pulse Ox 88 L 01/25/20 12:57 Orthostatic Blood Pressure [ 114/79 Standing] Orthostatic Blood Pressure [ 122/81 Sitting] Orthostatic Blood Pressure [ 110/79 Supine] Weight - Most Recent: 66.86 kg I&O - Last 24 Hours: Intake & Output 01/25/20 01/25/20 01/25/20 06:59 14:59 22:59 Intake Total 450 0 250 Output Total 500 Balance -50 0 250 Ez Results Last 24 Hours: Microbiology 01/21/20 15:22 Aerobic Blood Culture - Preliminary Blood - Venous - Lab Draw NO GROWTH AFTER 4 DAYS Anaerobic Blood Culture - Preliminary NO GROWTH AFTER 4 DAYS 01/21/20 15:14 Aerobic Blood Culture - Preliminary Blood - Venous NO GROWTH AFTER 4 DAYS Anaerobic Blood Culture - Preliminary NO GROWTH AFTER 4 DAYS 01/22/20 23:40 Stool Culture - Preliminary Stool / Feces Shiga Toxin I & II - Final Med Orders - Current: Current Medications Amoxicillin/Clavulanate Potassium (Augmentin 875 Mg/125 Mg) 1 tab PO Q12HR [facility] Chlordiazepoxide HCl (Librium) 10 mg PO BID [facility] Clotrimazole (Mycelex) 10 mg PO 5XDAY [facility] Last Admin: 01/25/20 15:11 Dose: 10 mg Documented by: Dexamethasone (Dexamethasone) 6 mg PO BID [facility] Last Admin: 01/25/20 09:28 Dose: 6 mg Documented by: Diphenhydr/Magaldrate/Simeth/Lidoca (First-Mouthwash Blm Susp) 30 ml PO Q2H PRN PRN Reason: Sore Throat Last Admin: 01/25/20 12:53 Dose: 30 ml Documented by: Famotidine (Pepcid) 20 mg PO DAILY [facility] Last Admin: 01/25/20 09:28 Dose: 20 mg Documented by: Fluconazole (Diflucan) 100 mg PO DAILY [facility] Miscellaneous Information (Remove Patch) 0 ea TRDERM DAILY [facility] Last Admin: 01/25/20 09:28 Dose: 1 ea Documented by: Nicotine (Habitrol) 21 mg TRDERM DAILY [facility] Last Admin: 01/25/20 09:28 Dose: 21 mg Documented by: Ondansetron HCl (Zofran Odt) 8 mg PO Q8H PRN PRN Reason: Pain Oxycodone HCl (Oxycodone) 5 mg PO Q6H PRN PRN Reason: Pain Last Admin: 01/25/20 09:37 Dose: 5 mg Documented by: Sodium Chloride (Saline Flush) 10 ml FLUSH ASDIRECTED PRN PRN Reason: Keep Vein Open Last Admin: 01/21/20 14:20 Dose: 10 ml Documented by: Thiamine HCl (Vitamin B-1) 100 mg PO BEDTIME [facility] Discontinued Medications Acetaminophen (Tylenol) 650 mg PO ONETIME ONE Stop: 01/21/20 14:35 Last Admin: 01/21/20 15:29 Dose: Not Given Documented by: Alprazolam (Xanax) 0.5 mg PO NOW ONE Stop: 01/23/20 10:42 Last Admin: 01/23/20 10:52 Dose: 0.5 mg Documented by: Alprazolam (Xanax) 0.5 mg PO ONETIME PRN PRN Reason: Anxiety Alprazolam (Xanax) 0.5 mg PO BID PRN PRN Reason: Anxiety Clonazepam (Klonopin) 0.5 mg PO BID PRN PRN Reason: Anxiety Last Admin: 01/25/20 09:37 Dose: 0.5 mg Documented by: Dexamethasone (Dexamethasone) 8 mg PO ONETIME ONE Stop: 01/23/20 18:01 Last Admin: 01/23/20 18:17 Dose: 8 mg Documented by: Fluconazole (Diflucan 10 Mg/Ml Susp) 10 mg PO Q24H [facility] Last Admin: 01/24/20 13:35 Dose: 10 mg Documented by: Fluconazole (Diflucan) 200 mg PO ONETIME ONE Stop: 01/25/20 09:01 Last Admin: 01/25/20 09:27 Dose: 200 mg Documented by: Gadobenate Dimeglumine (Multihance) 14 ml IVPUSH ONETIME ONE Stop: 01/23/20 11:07 Last Admin: 01/23/20 11:50 Dose: 14 ml Documented by: Heparin Sodium (Porcine) (Heparin Lock Flush 100 Units/Ml) 500 units FLUSH ONETIME ONE Stop: 01/24/20 10:23 Last Admin: 01/24/20 10:42 Dose: 500 units Documented by: Dextrose/Sodium Chloride (Dextrose 5%-Normal Saline) 1,000 mls @ 999 mls/hr IV ASDIRECTED [facility] Last Admin: 01/21/20 14:18 Dose: 999 mls/hr Documented by: Ampicillin Sodium/Sulbactam (Sodium 3 gm/ Sodium Chloride) 100 mls @ 200 mls/hr IV ONETIME ONE Stop: 01/21/20 15:02 Last Admin: 01/21/20 15:52 Dose: 200 mls/hr Documented by: Potassium Chloride 10 meq/ (Premix) 100 mls @ 100 mls/hr IV Q1H [facility] Stop: 01/21/20 19:44 Last Admin: 01/21/20 19:54 Dose: 100 mls/hr Documented by: Vancomycin HCl 1.75 gm/ Sodium (Chloride) 500 mls @ 250 mls/hr IV ONETIME ONE Stop: 01/21/20 14:38 Last Admin: 01/21/20 15:54 Dose: 250 mls/hr Documented by: Dextrose/Sodium Chloride (Dextrose 5%-Normal Saline) 1,000 mls @ 125 mls/hr IV ASDIRECTED [facility] Last Admin: 01/22/20 06:59 Dose: 125 mls/hr Documented by: Lactated Ringer's (Ringers, Lactated) 1,000 mls @ 50 mls/hr IV ASDIRECTED [facility] Last Admin: 01/23/20 16:15 Dose: 125 mls/hr Documented by: Potassium Phosphate 60 mmole/ (Sodium Chloride) 1,020 mls @ 102 mls/hr IV ONETIME ONE Stop: 01/22/20 20:59 Last Admin: 01/22/20 11:08 Dose: 102 mls/hr Documented by: Magnesium Sulfate 4 gm/ Premix 100 mls @ 25 mls/hr IV ONETIME ONE Stop: 01/22/20 14:59 Cefepime HCl 2 gm/ Premix 50 mls @ 100 mls/hr IV Q8H [facility] Last Admin: 01/25/20 10:34 Dose: 100 mls/hr Documented by: Magnesium Sulfate 4 gm/ Premix 50 mls @ 12.5 mls/hr IV ONETIME ONE Stop: 01/22/20 14:59 Magnesium Sulfate 4 gm/ Premix 100 mls @ 25 mls/hr IV ONETIME ONE Stop: 01/22/20 14:59 Last Admin: 01/22/20 11:09 Dose: 25 mls/hr Documented by: Vancomycin HCl 1 gm/ Sodium (Chloride) 250 mls @ 250 mls/hr IV Q12H [facility] Last Admin: 01/23/20 10:59 Dose: 250 mls/hr Documented by: Magnesium Sulfate 4 gm/ Premix 100 mls @ 25 mls/hr IV ONETIME ONE Stop: 01/23/20 13:59 Last Admin: 01/23/20 10:52 Dose: 25 mls/hr Documented by: Potassium Chloride 10 meq/ (Premix) 100 mls @ 100 mls/hr IV Q1H [facility] Stop: 01/23/20 15:59 Last Admin: 01/23/20 20:11 Dose: 100 mls/hr Documented by: Vancomycin HCl 1 gm/Vancomycin HCl 250 mg/ Sodium Chloride 250 mls @ 166.667 mls/hr IV Q12H [facility] Last Admin: 01/25/20 09:27 Dose: 166.667 mls/hr Documented by: Magnesium Sulfate/Dextrose 1 (gm/ Premix) 100 mls @ 100 mls/hr IV Q1H [facility] Stop: 01/23/20 18:29 Potassium Chloride 10 meq/ (Premix) 100 mls @ 100 mls/hr IV Q1H [facility] Stop: 01/23/20 20:29 Last Admin: 01/23/20 16:44 Dose: Not Given Documented by: Lactated Ringer's (Ringers, Lactated) 1,000 mls @ 50 mls/hr IV ASDIRECTED [facility] Last Admin: 01/24/20 10:32 Dose: 50 mls/hr Documented by: Loperamide HCl (Imodium) 2 mg PO Q6H PRN PRN Reason: Diarrhea Morphine Sulfate (Ms Contin) 15 mg PO BID [facility] Last Admin: 01/24/20 09:31 Dose: Not Given Documented by: Olanzapine (Zyprexa) 10 mg PO DAILY [facility] Prochlorperazine Maleate (Compazine) 10 mg PO Q6H PRN PRN Reason: Nausea Last Admin: 01/24/20 10:55 Dose: 10 mg Documented by: Sodium Chloride (Saline Flush) 10 ml FLUSH ASDIRECTED [facility] Stop: 01/23/20 13:00 Last Admin: 01/23/20 11:50 Dose: 10 ml Documented by: Vancomycin HCl (Pharmacy To Dose - Vancomycin) 1 dose .XX ASDIRECTED PRN PRN Reason: RX TO DOSE VANCO - Exam General: Alert, Oriented HEENT: Pupils Equal, Pupils Reactive, EOMI, Mucous Membr. Moist/[place] Neck: Supple Lungs: Clear to Auscultation, Normal Respiratory Effort Cardiovascular: Regular Rate, Regular Rhythm GI/Abdominal Exam: Normal Bowel Sounds, Soft, Non-Tender, No Organomegaly, No Distention, No Abnormal Bruit, No Mass, Pelvis Stable (Male) Exam: No Hernia, Normal Inspection, Normal Prostate, Circumcised Back Exam: Normal Inspection, Full Range of Motion Extremities: Normal Inspection, Normal Range of Motion, Non-Tender, No Pedal Edema, Normal Capillary Refill Skin: Warm, Dry, Intact Wound/Incisions: Healing Well Neurological: No New Focal Deficit Psy/Mental Status: Alert, Normal Affect, Normal Mood Sepsis Event Note - Evaluation Sepsis Screening Result: No Definite Risk - Focused Exam Vital Signs: Vital Signs Temp Pulse Resp BP BP Pulse Ox Pulse Ox 01/25/20 12:57 72 142/84 H 88 L 01/25/20 12:56 35.9 C L 72 16 142/84 H 92 L 01/25/20 08:16 35.9 C L 86 16 130/92 H 130/92 H 94 L 01/25/20 08:15 86 96 01/25/20 08:10 83 95 01/25/20 08:05 77 95 01/25/20 08:00 76 97 01/25/20 07:55 78 96 01/25/20 07:50 77 93 L 01/25/20 07:45 77 95 01/25/20 07:40 84 95 01/25/20 07:35 68 93 L 01/25/20 07:30 79 94 L 01/25/20 07:25 70 93 L 01/25/20 07:20 70 96 01/25/20 07:15 70 98 01/25/20 07:10 69 94 L 01/25/20 07:05 70 95 01/25/20 07:00 78 95 01/25/20 06:55 69 95 01/25/20 06:50 80 97 01/25/20 06:46 76 92 L 01/25/20 06:42 96 01/25/20 06:40 83 96 01/25/20 06:35 88 94 L 01/25/20 06:30 72 89 L 01/25/20 06:25 83 91 L 01/25/20 06:20 79 97 01/25/20 06:15 80 98 01/25/20 06:10 68 95 01/25/20 06:05 69 95 01/25/20 06:00 73 97 01/25/20 05:55 74 96 01/25/20 05:50 69 95 01/25/20 05:45 68 96 01/25/20 05:40 73 96 Pulse Ox 01/25/20 12:57 01/25/20 12:56 01/25/20 08:16 01/25/20 08:15 98 01/25/20 08:10 01/25/20 08:05 01/25/20 08:00 01/25/20 07:55 01/25/20 07:50 01/25/20 07:45 01/25/20 07:40 01/25/20 07:35 01/25/20 07:30 01/25/20 07:25 01/25/20 07:20 01/25/20 07:15 01/25/20 07:10 01/25/20 07:05 01/25/20 07:00 01/25/20 06:55 01/25/20 06:50 01/25/20 06:46 01/25/20 06:42 01/25/20 06:40 01/25/20 06:35 01/25/20 06:30 01/25/20 06:25 01/25/20 06:20 01/25/20 06:15 01/25/20 06:10 01/25/20 06:05 01/25/20 06:00 01/25/20 05:55 01/25/20 05:50 01/25/20 05:45 01/25/20 05:40 Date Exam was Performed: 01/25/20 Time Exam was Performed: 17:35 - Problem List & Annotations (1) Hypomagnesemia with secondary hypocalcemia SNOMED Code(s): 098006754 Code(s): E83.42 - HYPOMAGNESEMIA; E83.51 - HYPOCALCEMIA Status: Acute Priority: Low Current Visit: Yes Onset Date: ~01/22/20 Annotation/Comment:: stop magnesium (2) Acute febrile illness SNOMED Code(s): 243507146 Code(s): R50.9 - FEVER, UNSPECIFIED Status: Acute Priority: Medium Current Visit: Yes Onset Date: ~01/22/20 Annotation/Comment:: cultures neg. stop iv antibioitics cont augmentin x 7 days (3) COPD (chronic obstructive pulmonary disease) SNOMED Code(s): 74102954 Code(s): J44.9 - CHRONIC OBSTRUCTIVE PULMONARY DISEASE, UNSPECIFIED Status: Acute Priority: Medium Current Visit: Yes Onset Date: ~01/22/20 Qualifiers: Chronic bronchitis type: simple Annotation/Comment:: off o.2 desats with sleep snores / not apneic (4) Diarrhea SNOMED Code(s): 44884140 Code(s): R19.7 - DIARRHEA, UNSPECIFIED Status: Acute Priority: Low Current Visit: Yes Onset Date: ~01/22/20 Qualifiers: Diarrhea type: unspecified type Qualified Code(s): R19.7 - Diarrhea, u nspecified Annotation/Comment:: c diff and stool cultures normal (5) Generalized weakness SNOMED Code(s): 23128071 Code(s): R53.1 - WEAKNESS Status: Acute Priority: Low Current Visit: Yes Onset Date: ~01/22/20 Annotation/Comment:: improved ambulating with walker (6) Hypoalbuminemia SNOMED Code(s): 979128445 Code(s): E88.09 - OTH DISORDERS OF PLASMA-PROTEIN METABOLISM, NEC Status: Acute Priority: Medium Current Visit: Yes Onset Date: ~01/22/20 Annotation/Comment:: nutrition poor sec to chemo and etoh and poor feeding. (7) Hypokalemia SNOMED Code(s): 36992714 Code(s): E87.6 - HYPOKALEMIA Status: Acute Priority: Medium Current Visit: Yes Onset Date: ~01/22/20 Annotation/Comment:: replaced massive k deficit with mag and k (8) Metastatic carcinoma to liver SNOMED Code(s): 05303114, 084694001 Code(s): C78.7 - SECONDARY MALIG NEOPLASM OF LIVER AND INTRAHEPATIC BILE DUCT Status: Acute Priority: High Current Visit: Yes Onset Date: ~01/24/20 Annotation/Comment:: cont steriods but start emperic valcyclovir (9) Personal history of immunocompromised state SNOMED Code(s): 614021837 Code(s): Z86.2 - PRSNL HISTORY OF DIS OF THE BLD/BLD-FORM ORG/IMMUN MECHNSM Status: Acute Priority: High Current Visit: Yes Onset Date: ~01/24/20 Annotation/Comment:: neutropenia improving (10) Primary lung cancer SNOMED Code(s): 41701994 Code(s): C34.90 - MALIGNANT NEOPLASM OF UNSP PART OF UNSP BRONCHUS OR LUNG Status: Acute Priority: High Current Visit: Yes Onset Date: ~01/24/20 Qualifiers: Laterality: left Qualified Code(s): C34.92 - Malignant neoplasm of unspecified part of left bronchus or lung (11) Sinus tachycardia SNOMED Code(s): 56398657 Code(s): R00.0 - TACHYCARDIA, UNSPECIFIED Status: Acute Priority: Medium Current Visit: Yes Onset Date: ~01/24/20 Annotation/Comment:: improved (12) EtOH dependence SNOMED Code(s): 22552130 Code(s): F10.20 - ALCOHOL DEPENDENCE, UNCOMPLICATED Status: Acute Priority: Medium Current Visit: Yes Onset Date: ~01/25/20 Qualifiers: Substance use status: in withdrawal Complication of substance-induced condition: uncomplicated Qualified Code(s): F10.230 - Alcohol dependence with withdrawal, uncomplicated Annotation/Comment:: mild widthdrawl ? (13) Confusion with non-focal neuro exam SNOMED Code(s): 00102267, 078395088 Code(s): R41.0 - DISORIENTATION, UNSPECIFIED Status: Acute Priority: Medium Current Visit: Yes Onset Date: ~01/25/20 Annotation/Comment:: etoh/ meds / narcatcs / benzodiazepines/ cancer / malnutrition all causes (14) Malnutrition SNOMED Code(s): 74687561 Code(s): E46 - UNSPECIFIED PROTEIN-CALORIE MALNUTRITION Status: Acute Priority: Medium Current Visit: Yes Qualifiers: Malnutrition type: protein-calorie malnutrition Protein-calorie malnutrition severity: mild Qualified Code(s): E44.1 - Mild protein-calorie malnutrition - Problem List Review Problem List Initiated/Reviewed/Updated: Yes - My Orders Last 24 Hours: My Active Orders 01/24/20 21:00 dexAMETHasone 6 mg PO BID 01/25/20 15:05 Overnight Pulse Oximetry [Overnight Pulse Oximetry] [RC] Click to Edit 01/25/20 17:45 chlordiazePOXIDE [Librium] 10 mg PO BID 01/25/20 21:00 Amoxicillin/Clavulanate K [Augmentin 875 MG/125 MG] 1 tab PO Q12HR Thiamine [Vitamin B-1] 100 mg PO BEDTIME 01/26/20 09:00 Fluconazole [Diflucan] 100 mg PO DAILY - Plan Plan:: ASSESSMENT This is a 69-year-old male with no significant past medical history who was diagnosed with metastatic lung cancer to liver about 6 weeks ago. Patient came in for worsening weakness and episode of confusion with disorientation day prior. Intermittent coughing for the past 2 to 3 weeks, described as dry Started chemotherapy 3 weeks ago, is getting doses on Wednesdays, third dose due this Tuesday Found to be tachycardic and hypoxemic in the ED, neutropenic, hypokalemic, hypophosphatemic and volume depleted better. still weak and no appetite but no chills or fever. wbc rebounding slightly anc 630 wbc 1.62. k still low and mg 1.8 and replacement ordered. diarrhea slowed down to few times this am. c diff neg. stool cultures pending. on cefapime and vanco . anxious and wants to get up and somewhat weak and rec. pt and he agrees. cognitively doing better lab blood c/s ngsf urine ngsf p.e. lungs clear /decreased cor rrr. abd benign bs active.no tneder . no liver or spleen. skin mild petichea and bruising. neuro aox4 and restless. ext. wnl. voiding without difficulty assess///plan 1) neutropenic fever improved recheck cbc in am cont antibotics 2) diarrhea improved cont advance diet. immodium prn . 3) low k cont replacement. 4) weakness p.t . and k replacement. 5)lung ca with mets to liver recheck bmp in am decrease iv to 50 cc hour. boh 01/24/20 afebrile vss i.v. at 50 cc hour. off o2. more alerta nd sitting up . c/o esophageal pain . with swallowing. abd better diarrhea decreased with no immodium lungs decreased left and dullness on rt cor rrr syst murmur 2/6 abd benign. chest bruising and mild tenderness. skin bruising mild. assess neutropenia improving . staghorn calc. in left [place] nd non obstructing rt renal stone. liver mets and no adrenal mets seen. no pylo nephritis weakness improved some / needs p.t. and home helath consult sec to cares and weakness. esophagitis start rinse and topical and difucan ? endoscopy steriods cont taper but discuss with DR Tesfaye. need quicker taper sec to esophagitis boh 01/25/20 afebrile vss confused and confabulating some/ no tremor/ stiffness/ seizure like symptoms.no asterixis recognizes daughter/ increased alcohol intake 6-8 beers day and more on weekends sometimes. no hx of etoh stoppage and last drink 5 days ago by hx.(day before admission) discussed other sedating and cognitive affecting meds . has been on clonazepam here but not at home. also no benadryl or promethazine. on risperdol since admission but no folate or thiamine. p.e. stable but confused / no focal neuro signs / rj normal/ balance mildly impaired. speech clear but slurry and tangental. no cn findings. lung sounds grossly decreased rt assess lung cancer stable. neutropenia resolved/ blood c/s neg but cont antibiotic and switch to oral augmentin.x 7 days esophageal symptoms start emperic valcyclovir. for possible herpes es ophagitis. cont steroids per oncology sec to mult mets . cont weaning i.v support and start reg diet. treat possible thrush esophagitis thiamine and b complex x 6 months / avoid reintroducing etoh but daughter states that won't fly . no hard features of werneches but monitor symptoms . coordinate ongoing care with oncology and home health indicated . not sure he will comply . plan see orders
[2020-01-25] MEDS ORDERED: valACYclovir 500 MG Tab PO ONE (18:00)
[2020-01-25] MEDS: chlordiazePOXIDE 10 MG Cap PO SCH ×2 (18:11→20:10)
[2020-01-25] MEDS: Amoxicillin/Clavulanate K 875-125 MG Tab PO SCH (20:10)
[2020-01-25] MEDS ORDERED: Thiamine 100 MG Tab PO SCH (21:00)
[2020-01-26] MEDS: Clotrimazole 10 MG Troche PO SCH ×2 (05:10→10:18)
[2020-01-26] MEDS: Nicotine 21 MG/24 Hr Patch TRDERM SCH (08:20)
[2020-01-26] MEDS: Famotidine 20 MG Tab PO SCH (08:25)
[2020-01-26] MEDS: chlordiazePOXIDE 10 MG Cap PO SCH (08:25)
[2020-01-26] MEDS: Amoxicillin/Clavulanate K 875-125 MG Tab PO SCH (08:25)
[2020-01-26] MEDS: Dexamethasone 4 MG Tab PO SCH (08:25)
[2020-01-26] MEDS: oxyCODONE 5 MG Tab PO PRN (08:26)
[2020-01-26] MEDS ORDERED: Fluconazole 100 MG Tab PO SCH (09:00)
[2020-01-26] MEDS ORDERED: Vitamin B Complex With Vitamin C Cap PO SCH (09:00)
[2020-01-26] MEDS ORDERED: valACYclovir 500 MG Tab PO SCH (09:00)
--- NOTE | 2020-01-26 13:03 | PCM.DCSUM1 ---
Discharge Summary - Hospital Course Free Text/Narrative:: admitted with altered m.s and febrile neutropenia sec to chemoa nd lung cancer HPI Initial Comments: Date Exam was Performed: 01/25/20 Time Exam was Performed: 17:35 - Problem List & Annotations (1) Hypomagnesemia with secondary hypocalcemia SNOMED Code(s): 003499183 Code(s): E83.42 - HYPOMAGNESEMIA; E83.51 - HYPOCALCEMIA Status: Acute Priority: Low Current Visit: Yes Onset Date: ~01/22/20 Annotation/Comment:: stop magnesium (2) Acute febrile illness SNOMED Code(s): 498763145 Code(s): R50.9 - FEVER, UNSPECIFIED Status: Acute Priority: Medium Current Visit: Yes Onset Date: ~01/22/20 Annotation/Comment:: cultures neg. stop iv antibioitics cont augmentin x 7 days (3) COPD (chronic obstructive pulmonary disease) SNOMED Code(s): 85182403 Code(s): J44.9 - CHRONIC OBSTRUCTIVE PULMONARY DISEASE, UNSPECIFIED Status: Acute Priority: Medium Current Visit: Yes Onset Date: ~01/22/20 Qualifiers: Chronic bronchitis type: simple Annotation/Comment:: off o.2 desats with sleep snores / not apneic (4) Diarrhea SNOMED Code(s): 11891830 Code(s): R19.7 - DIARRHEA, UNSPECIFIED Status: Acute Priority: Low Current Visit: Yes Onset Date: ~01/22/20 Qualifiers: Diarrhea type: unspecified type Qualified Code(s): R19.7 - Diarrhea, unspecified Annotation/Comment:: c diff and stool cultures normal (5) Generalized weakness SNOMED Code(s): 74283821 Code(s): R53.1 - WEAKNESS Status: Acute Priority: Low Current Visit: Yes Onset Date: ~01/22/20 Annotation/Comment:: improved ambulating with walker (6) Hypoalbuminemia SNOMED Code(s): 439537787 Code(s): E88.09 - OTH DISORDERS OF PLASMA-PROTEIN METABOLISM, NEC Status: Acute Priority: Medium Current Visit: Yes Onset Date: ~01/22/20 Annotation/Comment:: nutrition poor sec to chemo and etoh and poor feeding. (7) Hypokalemia SNOMED Code(s): 22907895 Code(s): E87.6 - HYPOKALEMIA Status: Acute Priority: Medium Current Visit: Yes Onset Date: ~01/22/20 Annotation/Comment:: replaced massive k deficit with mag and k (8) Metastatic carcinoma to liver SNOMED Code(s): 25641531, 871318449 Code(s): C78.7 - SECONDARY MALIG NEOPLASM OF LIVER AND INTRAHEPATIC BILE DUCT Status: Acute Priority: High Current Visit: Yes Onset Date: ~01/24/20 Annotation/Comment:: cont steriods but start emperic valcyclovir (9) Personal history of immunocompromised state SNOMED Code(s): 082288356 Code(s): Z86.2 - PRSNL HISTORY OF DIS OF THE BLD/BLD-FORM ORG/IMMUN MECHNSM Status: Acute Priority: High Current Visit: Yes Onset Date: ~01/24/20 Annotation/Comment:: neutropenia improving (10) Primary lung cancer SNOMED Code(s): 50791837 Code(s): C34.90 - MALIGNANT NEOPLASM OF UNSP PART OF UNSP BRONCHUS OR LUNG Status: Acute Priority: High Current Visit: Yes Onset Date: ~01/24/20 Qualifiers: Laterality: left Qualified Code(s): C34.92 - Malignant neoplasm of unspecified part of left bronchus or lung (11) Sinus tachycardia SNOMED Code(s): 57413646 Code(s): R00.0 - TACHYCARDIA, UNSPECIFIED Status: Acute Priority: Medium Current Visit: Yes Onset Date: ~01/24/20 Annotation/Comment:: improved (12) EtOH dependence SNOMED Code(s): 06382139 Code(s): F10.20 - ALCOHOL DEPENDENCE, UNCOMPLICATED Status: Acute Priority: Medium Current Visit: Yes Onset Date: ~01/25/20 Qualifiers: Substance use status: in withdrawal Complication of substance-induced condition: uncomplicated Qualified Code(s): F10.230 - Alcohol dependence with withdrawal, uncomplicated Annotation/Comment:: mild widthdrawl ? (13) Confusion with non-focal neuro exam SNOMED Code(s): 65870570, 607599074 Code(s): R41.0 - DISORIENTATION, UNSPECIFIED Status: Acute Priority: Medium Current Visit: Yes Onset Date: ~01/25/20 Annotation/Comment:: etoh/ meds / narcatcs / benzodiazepines/ cancer / malnutrition all causes (14) Malnutrition SNOMED Code(s): 79612885 Code(s): E46 - UNSPECIFIED PROTEIN-CALORIE MALNUTRITION Status: Acute Priority: Medium Current Visit: Yes Qualifiers: Malnutrition type: protein-calorie malnutrition Protein-calorie malnutrition severity: mild Qualified Code(s): E44.1 - Mild protein-calorie malnutrition - Problem List Review Problem List Initiated/Reviewed/Updated: Yes - My Orders Last 24 Hours: My Active Orders 01/24/20 21:00 dexAMETHasone 6 mg PO BID 01/25/20 15:05 Overnight Pulse Oximetry [Overnight Pulse Oximetry] [RC] Click to Edit 01/25/20 17:45 chlordiazePOXIDE [Librium] 10 mg PO BID 01/25/20 21:00 Amoxicillin/Clavulanate K [Augmentin 875 MG/125 MG] 1 tab PO Q12HR Thiamine [Vitamin B-1] 100 mg PO BEDTIME 01/26/20 09:00 Fluconazole [Diflucan] 100 mg PO DAILY - Plan Plan:: ASSESSMENT This is a 69-year-old male with no significant past medical history who was diagnosed with metastatic lung cancer to liver about 6 weeks ago. Patient came in for worsening weakness and episode of confusion with disorientation day prior. Intermittent coughing for the past 2 to 3 weeks, described as dry Started chemotherapy 3 weeks ago, is getting doses on Wednesdays, third dose due this Tuesday Found to be tachycardic and hypoxemic in the ED, neutropenic, hypokalemic, hypophosphatemic and volume depleted better. still weak and no appetite but no chills or fever. wbc rebounding slightly anc 630 wbc 1.62. k still low and mg 1.8 and replacement ordered. diarrhea slowed down to few times this am. c diff neg. stool cultures pending. on cefapime and vanco . anxious and wants to get up and somewhat weak and rec. pt and he agrees. cognitively doing better lab blood c/s ngsf urine ngsf p.e. lungs clear /decreased cor rrr. abd benign bs active.no tneder . no liver or spleen. skin mild petichea and bruising. neuro aox4 and restless. ext. wnl. voiding without difficulty assess///plan 1) neutropenic fever improved recheck cbc in am cont antibotics 2) diarrhea improved cont advance diet. immodium prn . 3) low k cont replacement. 4) weakness p.t . and k replacement. 5)lung ca with mets to liver recheck bmp in am decrease iv to 50 cc hour. boh 01/24/20 afebrile vss i.v. at 50 cc hour. off o2. more alerta nd sitting up . c/o esophageal pain . with swallowing. abd better diarrhea decreased with no immodium lungs decreased left and dullness on rt cor rrr syst murmur 2/6 abd benign. chest bruising and mild tenderness. skin bruising mild. assess neutropenia improving . staghorn calc. in left [place] nd non obstructing rt renal stone. liver mets and no adrenal mets seen. no pylo nephritis weakness improved some / needs p.t. and home helath consult sec to cares and weakness. esophagitis start rinse and topical and difucan ? endoscopy steriods cont taper but discuss with DR Tesfaye. need quicker taper sec to esophagitis boh 01/25/20 afebrile vss confused and confabulating some/ no tremor/ stiffness/ seizure like symptoms.no asterixis recognizes daughter/ increased alcohol intake 6-8 beers day and more on weekends sometimes. no hx of etoh stoppage and last drink 5 days ago by hx.(day before admission) discussed other sedating and cognitive affecting meds . has been on clonazepam here but not at home. also no benadryl or promethazine. on risperdol since admission but no folate or thiamine. p.e. stable but confused / no focal neuro signs / rj normal/ balance mildly impaired. speech clear but slurry and tangental. no cn findings. lung sounds grossly decreased rt assess lung cancer stable. neutropenia resolved/ blood c/s neg but cont antibiotic and switch to oral augmentin.x 7 days esophageal symptoms start emperic valcyclovir. for possible herpes esophagitis. cont steroids per oncology sec to mult mets . cont weaning i.v support and start reg diet. treat possible thrush esophagitis thiamine and b complex x 6 months / avoid reintroducing etoh but daughter states that won't fly . no hard features of werneches but monitor symptoms . coordinate ongoing care with oncology and home health indicated . not sure he will comply . plan see orders Brief History: doing well and dc home with daughter / no driving / follow up one week Dr Tesfaye. - Discharge Data Discharge Date: 01/26/20 Discharge Disposition: Home, W Home Health Agency 06 Condition: Good - Referral to Home Health Date of Face to Face Encounter: 01/26/20 Reason for Homebound Status: lung cancer / weakness/ etoh use.copd. Primary Care Physician: Rufino Vega Jr, MD Skilled Need: patient reuired home med monitoring / education and care home assessment . pt required sec to weaknessa nd altered mental status and follow up . patient is homebound and has multiple care needs - Discharge Diagnosis/Problem(s) (1) Hypomagnesemia with secondary hypocalcemia SNOMED Code(s): 150524001 ICD Code: E83.42 - HYPOMAGNESEMIA; E83.51 - HYPOCALCEMIA Status: Acute Priority: Low Current Visit: Yes Onset Date: ~01/22/20 Problem Details: stop magnesium (2) Acute febrile illness SNOMED Code(s): 838697272 ICD Code: R50.9 - FEVER, UNSPECIFIED Status: Acute Priority: Medium Current Visit: Yes Onset Date: ~01/22/20 Problem Details: cultures neg. stop iv antibioitics cont augmentin x 3 days (3) COPD (chronic obstructive pulmonary disease) SNOMED Code(s): 85098346 ICD Code: J44.9 - CHRONIC OBSTRUCTIVE PULMONARY DISEASE, UNSPECIFIED Status: Acute Priority: Medium Current Visit: Yes Onset Date: ~01/22/20 Problem Details: off o.2 desats with sleep snores / not apneic Qualifiers: Chronic bronchitis type: simple (4) Diarrhea SNOMED Code(s): 58802802 ICD Code: R19.7 - DIARRHEA, UNSPECIFIED Status: Acute Priority: Low Current Visit: Yes Onset Date: ~01/22/20 Problem Details: c diff and stool cultures normal Qualifiers: Diarrhea type: unspecified type Qualified Code(s): R19.7 - Diarrhea, unspecified (5) Generalized weakness SNOMED Code(s): 43537511 ICD Code: R53.1 - WEAKNESS Status: Acute Priority: Low Current Visit: Yes Onset Date: ~01/22/20 Problem Details: improved ambulating with walker (6) Hypoalbuminemia SNOMED Code(s): 957287529 ICD Code: E88.09 - OTH DISORDERS OF PLASMA-PROTEIN METABOLISM, NEC Status: Acute Priority: Medium Current Visit: Yes Onset Date: ~01/22/20 Problem Details: nutrition poor sec to chemo and etoh and poor feeding. (7) Hypokalemia SNOMED Code(s): 06072906 ICD Code: E87.6 - HYPOKALEMIA Status: Acute Priority: Low Current Visit: Yes Onset Date: ~01/22/20 Problem Details: replaced massive k deficit with mag and k (8) Metastatic carcinoma to liver SNOMED Code(s): 28365100, 321390418 ICD Code: C78.7 - SECONDARY MALIG NEOPLASM OF LIVER AND INTRAHEPATIC BILE DUCT Status: Acute Priority: Medium Current Visit: Yes Onset Date: ~01/24/20 Problem Details: cont steriods but start emperic valcyclovir (9) Personal history of immunocompromised state SNOMED Code(s): 671745280 ICD Code: Z86.2 - PRSNL HISTORY OF DIS OF THE BLD/BLD-FORM ORG/IMMUN MECHNSM Status: Acute Priority: Medium Current Visit: Yes Onset Date: ~01/24/20 Problem Details: neutropenia improving (10) Primary lung cancer SNOMED Code(s): 64767748 ICD Code: C34.90 - MALIGNANT NEOPLASM OF UNSP PART OF UNSP BRONCHUS OR LUNG Status: Acute Priority: High Current Visit: Yes Onset Date: ~01/24/20 Qualifiers: Laterality: left Qualified Code(s): C34.92 - Malignant neoplasm of unspecified part of left bronchus or lung (11) Sinus tachycardia SNOMED Code(s): 46416734 ICD Code: R00.0 - TACHYCARDIA, UNSPECIFIED Status: Acute Priority: Low Current Visit: Yes Onset Date: ~01/24/20 Problem Details: improved (12) EtOH dependence SNOMED Code(s): 05595375 ICD Code: F10.20 - ALCOHOL DEPENDENCE, UNCOMPLICATED Status: Acute Priority: Low Current Visit: Yes Onset Date: ~01/25/20 Problem Details: mild widthdrawl ? / will cont b12 and thiamine and short term librium x 5 days Qualifiers: Substance use status: in withdrawal Complication of substance-induced condition: uncomplicated Qualified Code(s): F10.230 - Alcohol dependence with withdrawal, uncomplicated (13) Confusion with non-focal neuro exam SNOMED Code(s): 72537498, 651197541 ICD Code: R41.0 - DISORIENTATION, UNSPECIFIED Status: Acute Priority: Medium Current Visit: Yes Onset Date: ~01/25/20 Problem Details: etoh/ meds / narcatcs / benzodiazepines/ cancer / malnutrition all causes (14) Malnutrition SNOMED Code(s): 81957486 ICD Code: E46 - UNSPECIFIED PROTEIN-CALORIE MALNUTRITION Status: Acute Priority: Medium Current Visit: Yes Qualifiers: Malnutrition type: protein-calorie malnutrition Protein-calorie malnutrition severity: mild Qualified Code(s): E44.1 - Mild protein-calorie malnutrition - Patient Summary/Data Consults: Consultations 01/22/20 10:14 PT Evaluation and Treatment [CONS] Routine 01/22/20 10:15 OT Evaluation and Treatment [CONS] Routine - Patient Instructions Diet: Heart Healthy Diet, Usual Diet as Tolerated Activity: As Tolerated Driving: Do Not Drive Showering/Bathing: May Shower Notify Provider of: Fever, Increased Pain, Nausea and/or Vomiting - Discharge Plan *PRESCRIPTION DRUG MONITORING PROGRAM REVIEWED*: Not Applicable *COPY OF PRESCRIPTION DRUG MONITORING REPORT IN PATIENT ESTELA: Not Applicable Prescriptions/Med Rec: Amoxicillin/Clavulanate K [Augmentin 875-125 MG] 1 tab PO Q12HR #7 tablet Diphenhyd/Lidocaine/MagAl/Ebenezer [First-Mouthwash BLM Susp] 30 ml PO Q2H PRN #1 bottle PRN Reason: Sore Throat chlordiazePOXIDE [Librium] 10 mg PO BID #10 cap Clotrimazole [Mycelex] 10 mg PO 5XDAY #60 greg Thiamine [Vitamin B-1] 100 mg PO BEDTIME #100 tablet Home Medications: Home Meds Ondansetron [Zofran] 8 mg PO Q8H PRN 01/23/20 [History] dexAMETHasone [Dexamethasone] 4 mg PO TID 01/23/20 [History] oxyCODONE 5 mg PO Q6H PRN 01/23/20 [History] Amoxicillin/Clavulanate K [Augmentin 875-125 MG] 1 tab PO Q12HR #7 tablet 01/26/20 [Rx] Clotrimazole [Mycelex] 10 mg PO 5XDAY #60 greg 01/26/20 [Rx] Diphenhyd/Lidocaine/MagAl/Ebenezer [First-Mouthwash BLM Susp] 30 ml PO Q2H PRN #1 bottle 01/26/20 [Rx] Nicotine [Habitrol] 21 mg TRDERM DAILY patch 01/26/20 [Rx] Thiamine [Vitamin B-1] 100 mg PO BEDTIME #100 tablet 01/26/20 [Rx] Vitamin B Complex with C [Super B With Vitamin C] 1 cap PO DAILY cap 01/26/20 [Rx] chlordiazePOXIDE [Librium] 10 mg PO BID #10 cap 01/26/20 [Rx] dexAMETHasone [Dexamethasone] 6 mg PO BID tablet 01/26/20 [Rx] Oxygen Therapy Mode: Room Air Patient Handouts: Diarrhea, Adult, White Blood Cell Count Test, Sepsis, Self Care, Adult Forms: ED Department Discharge Referrals: Koby Fox MD [Ordering Only Provider] - 02/28/20 2:30 pm (Appointment is at 1:30 pm Mountain time in [place]. Urology referral and hospitalization information has been sent to this urologist.) Rufino Vega Jr, MD [Primary Care Provider] - - Discharge Summary/Plan Comment DC Time >30 min.: Yes - General Info Date of Service: 01/26/20 Admission Dx/Problem (Free Text: neutropenic sepsis with ms changes Date Exam was Performed: 01/25/20 Time Exam was Performed: 17:35 - Problem List & Annotations (1) Hypomagnesemia with secondary hypocalcemia SNOMED Code(s): 558106142 Code(s): E83.42 - HYPOMAGNESEMIA; E83.51 - HYPOCALCEMIA Status: Acute Priority: Low Current Visit: Yes Onset Date: ~01/22/20 Annotation/Comment:: stop magnesium (2) Acute febrile illness SNOMED Code(s): 582650708 Code(s): R50.9 - FEVER, UNSPECIFIED Status: Acute Priority: Medium Current Visit: Yes Onset Date: ~01/22/20 Annotation/Comment:: cultures neg. stop iv antibioitics cont augmentin x 7 days (3) COPD (chronic obstructive pulmonary disease) SNOMED Code(s): 22239675 Code(s): J44.9 - CHRONIC OBSTRUCTIVE PULMONARY DISEASE, UNSPECIFIED Status: Acute Priority: Medium Current Visit: Yes Onset Date: ~01/22/20 Qualifiers: Chronic bronchitis type: simple Annotation/Comment:: off o.2 desats with sleep snores / not apneic (4) Diarrhea SNOMED Code(s): 15139241 Code(s): R19.7 - DIARRHEA, UNSPECIFIED Status: Acute Priority: Low Current Visit: Yes Onset Date: ~01/22/20 Qualifiers: Diarrhea type: unspecified type Qualified Code(s): R19.7 - Diarrhea, unspe cified Annotation/Comment:: c diff and stool cultures normal (5) Generalized weakness SNOMED Code(s): 04306473 Code(s): R53.1 - WEAKNESS Status: Acute Priority: Low Current Visit: Yes Onset Date: ~01/22/20 Annotation/Comment:: improved ambulating with walker (6) Hypoalbuminemia SNOMED Code(s): 288115639 Code(s): E88.09 - OTH DISORDERS OF PLASMA-PROTEIN METABOLISM, NEC Status: Acute Priority: Medium Current Visit: Yes Onset Date: ~01/22/20 Annotation/Comment:: nutrition poor sec to chemo and etoh and poor feeding. (7) Hypokalemia SNOMED Code(s): 78682255 Code(s): E87.6 - HYPOKALEMIA Status: Acute Priority: Medium Current Visit: Yes Onset Date: ~01/22/20 Annotation/Comment:: replaced massive k deficit with mag and k (8) Metastatic carcinoma to liver SNOMED Code(s): 95052189, 425573472 Code(s): C78.7 - SECONDARY MALIG NEOPLASM OF LIVER AND INTRAHEPATIC BILE DUCT Status: Acute Priority: High Current Visit: Yes Onset Date: ~01/24/20 Annotation/Comment:: cont steriods but start emperic valcyclovir (9) Personal history of immunocompromised state SNOMED Code(s): 998039635 Code(s): Z86.2 - PRSNL HISTORY OF DIS OF THE BLD/BLD-FORM ORG/IMMUN MECHNSM Status: Acute Priority: High Current Visit: Yes Onset Date: ~01/24/20 Annotation/Comment:: neutropenia improving (10) Primary lung cancer SNOMED Code(s): 97347265 Code(s): C34.90 - MALIGNANT NEOPLASM OF UNSP PART OF UNSP BRONCHUS OR LUNG Status: Acute Priority: High Current Visit: Yes Onset Date: ~01/24/20 Qualifiers: Laterality: left Qualified Code(s): C34.92 - Malignant neoplasm of unspecified part of left bronchus or lung (11) Sinus tachycardia SNOMED Code(s): 65583689 Code(s): R00.0 - TACHYCARDIA, UNSPECIFIED Status: Acute Priority: Medium Current Visit: Yes Onset Date: ~01/24/20 Annotation/Comment:: improved (12) EtOH dependence SNOMED Code(s): 05247452 Code(s): F10.20 - ALCOHOL DEPENDENCE, UNCOMPLICATED Status: Acute Priority: Medium Current Visit: Yes Onset Date: ~01/25/20 Qualifiers: Substance use status: in withdrawal Complication of substance-induced condition: uncomplicated Qualified Code(s): F10.230 - Alcohol dependence with withdrawal, uncomplicated Annotation/Comment:: mild widthdrawl ? (13) Confusion with non-focal neuro exam SNOMED Code(s): 11886176, 788934679 Code(s): R41.0 - DISORIENTATION, UNSPECIFIED Status: Acute Priority: Medium Current Visit: Yes Onset Date: ~01/25/20 Annotation/Comment:: etoh/ meds / narcatcs / benzodiazepines/ cancer / malnutrition all causes (14) Malnutrition SNOMED Code(s): 90808615 Code(s): E46 - UNSPECIFIED PROTEIN-CALORIE MALNUTRITION Status: Acute Priority: Medium Current Visit: Yes Qualifiers: Malnutrition type: protein-calorie malnutrition Protein-calorie malnutrition severity: mild Qualified Code(s): E44.1 - Mild protein-calorie malnutrition - Problem List Review Problem List Initiated/Reviewed/Updated: Yes - My Orders Last 24 Hours: My Active Orders 01/24/20 21:00 dexAMETHasone 6 mg PO BID 01/25/20 15:05 Overnight Pulse Oximetry [Overnight Pulse Oximetry] [RC] Click to Edit 01/25/20 17:45 chlordiazePOXIDE [Librium] 10 mg PO BID 01/25/20 21:00 Amoxicillin/Clavulanate K [Augmentin 875 MG/125 MG] 1 tab PO Q12HR Thiamine [Vitamin B-1] 100 mg PO BEDTIME 01/26/20 09:00 Fluconazole [Diflucan] 100 mg PO DAILY - Plan Plan:: ASSESSMENT This is a 69-year-old male with no significant past medical history who was diagnosed with metastatic lung cancer to liver about 6 weeks ago. Patient came in for worsening weakness and episode of confusion with disorientation day prior. Intermittent coughing for the past 2 to 3 weeks, described as dry Started chemotherapy 3 weeks ago, is getting doses on Wednesdays, third dose due this Tuesday Found to be tachycardic and hypoxemic in the ED, neutropenic, hypokalemic, hypophosphatemic and volume depleted better. still weak and no appetite but no chills or fever. wbc rebounding slightly anc 630 wbc 1.62. k still low and mg 1.8 and replacement ordered. diarrhea slowed down to few times this am. c diff neg. stool cultures pending. on cefapime and vanco . anxious and wants to get up and somewhat weak and rec. pt and he agrees. cognitively doing better lab blood c/s ngsf urine ngsf p.e. lungs clear /decreased cor rrr. abd benign bs active.no tneder . no liver or spleen. skin mild petichea and bruising. neuro aox4 and restless. ext. wnl. voiding without difficulty assess///plan 1) neutropenic fever improved recheck cbc in am cont antibotics 2) diarrhea improved cont advance diet. immodium prn . 3) low k cont replacement. 4) weakness p.t . and k replacement. 5)lung ca with mets to liver recheck bmp in am decrease iv to 50 cc hour. boh 01/24/20 afebrile vss i.v. at 50 cc hour. off o2. more alerta nd sitting up . c/o esophageal pain . with swallowing. abd better diarrhea decreased with no immodium lungs decreased left and dullness on rt cor rrr syst murmur 2/6 abd benign. chest bruising and mild tenderness. skin bruising mild. assess neutropenia improving . staghorn calc. in left [place] nd non obstructing rt renal stone. liver mets and no adrenal mets seen. no pylo nephritis weakness improved some / needs p.t. and home helath consult sec to cares and weakness. esophagitis start rinse and topical and difucan ? endoscopy steriods cont taper but discuss with DR Tesfaye. need quicker taper sec to esophagitis boh 01/25/20 afebrile vss confused and confabulating some/ no tremor/ stiffness/ seizure like symptoms.no asterixis recognizes daughter/ increased alcohol intake 6-8 beers day and more on weekends sometimes. no hx of etoh stoppage and last drink 5 days ago by hx.(day before admission) discussed other sedating and cognitive affecting meds . has been on clonazepam here but not at home. also no benadryl or promethazine. on risperdol since admission but no folate or thiamine. p.e. stable but confused / no focal neuro signs / rj normal/ balance mildly impaired. speech clear but slurry and tangental. no cn findings. lung sounds grossly decreased rt assess lung cancer stable. neutropenia resolved/ blood c/s neg but cont antibiotic and switch to oral augmentin.x 7 days esophageal symptoms start emperic valcyclovir. for possible herpes esophagitis. cont steroids per oncology sec to mult mets . cont weaning i.v support and start reg diet. treat possible thrush esophagitis thiamine and b complex x 6 months / avoid reintroducing etoh but daughter states that won't fly . no hard features of werneches but monitor symptoms . coordinate ongoing care with oncology and home health indicated . not sure he will comply . plan see orders Subjective Update: faye doing some better. still weak and no appetite but no chills or fever. wbc rebounding slightly anc 630 wbc 1.62. k still low and mg 1.8 and replacement ordered. diarrhea slowed down to few times this am. c diff neg. stool cultures pending. on cefapime and vanco . anxious and wants to get up and somewhat weak and rec. pt and he agrees. cognitively doing better lab blood c/s ngsf urine ngsf p.e. lungs clear /decreased cor rrr. abd benign bs active.no tneder . no liver or spleen. skin mild petichea and bruising. neuro aox4 and restless. ext. wnl. voiding without difficulty assess///plan 1) neutropenic fever improved recheck cbc in am cont antibotics 2) diarrhea improved cont advance diet. immodium prn . 3) low k cont replacement. 4) weakness p.t . and k replacement. 5)lung ca with mets to liver recheck bmp in am decrease iv to 50 cc hour. boh 01/24/20 afebrile vss i.v. at 50 cc hour. off o2. more alerta nd sitting up . c/o esophageal pain . with swallowing. abd better diarrhea decreased with no immodium lungs decreased left and dullness on rt cor rrr syst murmur 2/6 abd benign. chest bruising and mild tenderness. skin bruising mild. assess neutropenia improving . staghorn calc. in left [place] nd non obstructing rt renal stone. liver mets and no adrenal mets seen. no pylo nephritis weakness improved some / needs p.t. and home helath consult sec to cares and weakness. esophagitis start rinse and topical and difucan ? endoscopy steroids cont taper but discuss with DR Tesfaye. need quicker taper sec to esophagitis boh 01/25/20 afebrile vss confused and confabulating some/ no tremor/ stiffness/ seizure like symptoms.no asterixis recognizes daughter/ increased alcohol intake 6-8 beers day and more on weekends sometimes. no hx of etoh stoppage and last drink 5 days ago by hx.(day before admission) discussed other sedating and cognitive affecting meds . has been on clonazepam here but not at home. also no benadryl or promethazine. on risperdol since admission but no folate or thiamine. p.e. stable but confused / no focal neuro signs / rj normal/ balance mildly impaired. speech clear but slurry and tangental. no cn findings. lung sounds grossly decreased rt assess lung cancer stable. neutropenia resolved/ blood c/s neg but cont antibiotic and switch to oral augmentin.x 7 days esophageal symptoms start emperic valcyclovir. for possible herpes esophagitis. 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 cont weaning i.v support and start reg diet. treat possble thrush esophagitis thiamine and b complex x 6 months / avoid reintroducing etoh but daughter states that won't fly . no hard features of werneches but monitor symptoms . coordinate ongoing care with oncology and home health indicated . not sure he will comply . plan see orders - Review of Systems General: Reports: No Symptoms HEENT: Reports: No Symptoms Pulmonary: Reports: No Symptoms Cardiovascular: Reports: No Symptoms Gastrointestinal: Reports: No Symptoms Genitourinary: Reports: No Symptoms Musculoskeletal: Reports: No Symptoms Skin: Reports: No Symptoms Neurological: Reports: No Symptoms Psychiatric: Reports: No Symptoms - Patient Data Vitals - Most Recent: Last Vital Signs Temp 35.9 C L 01/26/20 08:16 Pulse 81 01/26/20 08:16 Resp 18 01/26/20 08:16 BP 150/97 H 01/26/20 08:16 Pulse Ox 93 L 01/26/20 08:16 Orthostatic Blood Pressure [ 114/79 Standing] Orthostatic Blood Pressure [ 122/81 Sitting] Orthostatic Blood Pressure [ 110/79 Supine] Weight - Most Recent: 66.86 kg I&O - Last 24 hours: Intake & Output 01/25/20 01/26/20 01/26/20 22:59 06:59 14:59 Intake Total 570 120 Balance 570 120 Lab Results - Last 24 hrs: Laboratory Results - last 24 hr 01/26/20 01/26/20 Range/Units 05:37 05:37 WBC 5.58 (4.23-9.07) K/mm3 RBC 3.26 L (4.63-6.08) M/mm3 Hgb 9.8 L D (13.7-17.5) gm/dl Hct 30.5 L (40.1-51.0) % MCV 93.6 H (79.0-92.2) fl MCH 30.1 (25.7-32.2) pg MCHC 32.1 L (32.2-35.5) g/dl RDW Std Deviation 41.5 (35.1-43.9) fL Plt Count 238 (163-337) K/mm3 MPV 9.0 L (9.4-12.3) fl Neut % (Auto) 72.9 H (34.0-67.9) % Lymph % (Auto) 10.4 L (21.8-53.1) % [place] % (Auto) 12.9 H (5.3-12.2) % Eos % (Auto) 0 L (0.8-7.0) Baso % (Auto) 0.4 (0.1-1.2) % Neut # (Auto) 4.07 (1.78-5.38) K/mm3 Lymph # (Auto) 0.58 L (1.32-3.57) K/mm3 [place] # (Auto) 0.72 (0.30-0.82) K/mm3 Eos # (Auto) 0.00 L (0.04-0.54) K/mm3 Baso # (Auto) 0.02 (0.01-0.08) K/mm3 Manual Slide Review Abnormal smear Sodium 140 (136-145) mEq/L Potassium 3.6 (3.5-5.1) mEq/L Chloride 102 (98-107) mEq/L Carbon Dioxide 32 (21-32) mEq/L Anion Gap 9.6 (5-15) BUN 12 (7-18) mg/dL Creatinine 0.6 L (0.7-1.3) mg/dL Est Cr Clr Drug Dosing 111.70 mL/min Estimated GFR (MDRD) > 60 (>60) mL/min BUN/Creatinine Ratio 20.0 H (14-18) Glucose 163 H (80-115) mg/dL Calcium 8.7 (8.5-10.1) mg/dL Total Bilirubin 0.4 (0.2-1.0) mg/dL AST 11 L (15-37) U/L ALT 28 (16-63) U/L Alkaline Phosphatase 98 (46-116) U/L C-Reactive Protein 5.0 H* (<1.0) mg/dL Total Protein 5.6 L (6.4-8.2) g/dl Albumin 1.9 L (3.4-5.0) g/dl Globulin 3.7 gm/dL Albumin/Globulin Ratio 0.5 L (1-2) DARRIUS Results - Last 24 hrs: Microbiology 01/21/20 15:22 Aerobic Blood Culture - Preliminary Blood - Venous - Lab Draw NO GROWTH AFTER 4 DAYS Anaerobic Blood Culture - Preliminary NO GROWTH AFTER 4 DAYS 01/21/20 15:14 Aerobic Blood Culture - Preliminary Blood - Venous NO GROWTH AFTER 4 DAYS Anaerobic Blood Culture - Preliminary NO GROWTH AFTER 4 DAYS Med Orders - Current: Current Medications Amoxicillin/Clavulanate Potassium (Augmentin 875 Mg/125 Mg) 1 tab PO Q12HR [facility] Last Admin: 01/26/20 08:25 Dose: 1 tab Documented by: Chlordiazepoxide HCl (Librium) 10 mg PO BID [facility] Last Admin: 01/26/20 08:25 Dose: 10 mg Documented by: Clotrimazole (Mycelex) 10 mg PO 5XDAY [facility] Last Admin: 01/26/20 10:18 Dose: 10 mg Documented by: Dexamethasone (Dexamethasone) 6 mg PO BID [facility] Last Admin: 01/26/20 08:25 Dose: 6 mg Documented by: Diphenhydr/Magaldrate/Simeth/Lidoca (First-Mouthwash Blm Susp) 30 ml PO Q2H PRN PRN Reason: Sore Throat Last Admin: 01/25/20 12:53 Dose: 30 ml Documented by: Famotidine (Pepcid) 20 mg PO DAILY [facility] Last Admin: 01/26/20 08:25 Dose: 20 mg Documented by: Fluconazole (Diflucan) 100 mg PO DAILY [facility] Last Admin: 01/26/20 08:25 Dose: 100 mg Documented by: Miscellaneous Information (Remove Patch) 0 ea TRDERM DAILY [facility] Last Admin: 01/26/20 08:20 Dose: 1 ea Documented by: Nicotine (Habitrol) 21 mg TRDERM DAILY [facility] Last Admin: 01/26/20 08:20 Dose: 21 mg Documented by: Ondansetron HCl (Zofran Odt) 8 mg PO Q8H PRN PRN Reason: Pain Oxycodone HCl (Oxycodone) 5 mg PO Q6H PRN PRN Reason: Pain Last Admin: 01/26/20 08:26 Dose: 5 mg Documented by: Sodium Chloride (Saline Flush) 10 ml FLUSH ASDIRECTED PRN PRN Reason: Keep Vein Open Last Admin: 01/21/20 14:20 Dose: 10 ml Documented by: Thiamine HCl (Vitamin B-1) 100 mg PO BEDTIME [facility] Last Admin: 01/25/20 20:10 Dose: 100 mg Documented by: Valacyclovir HCl (Valtrex) 500 mg PO BID [facility] Last Admin: 01/26/20 08:25 Dose: 500 mg Documented by: Vitamin B Complex/Vitamin C (Super B With Vitamin C) 1 cap PO DAILY [facility] Last Admin: 01/26/20 08:25 Dose: 1 cap Documented by: Discontinued Medications Acetaminophen (Tylenol) 650 mg PO ONETIME ONE Stop: 01/21/20 14:35 Last Admin: 01/21/20 15:29 Dose: Not Given Documented by: Alprazolam (Xanax) 0.5 mg PO NOW ONE Stop: 01/23/20 10:42 Last Admin: 01/23/20 10:52 Dose: 0.5 mg Documented by: Alprazolam (Xanax) 0.5 mg PO ONETIME PRN PRN Reason: Anxiety Alprazolam (Xanax) 0.5 mg PO BID PRN PRN Reason: Anxiety Clonazepam (Klonopin) 0.5 mg PO BID PRN PRN Reason: Anxiety Last Admin: 01/25/20 09:37 Dose: 0.5 mg Documented by: Dexamethasone (Dexamethasone) 8 mg PO ONETIME ONE Stop: 01/23/20 18:01 Last Admin: 01/23/20 18:17 Dose: 8 mg Documented by: Fluconazole (Diflucan 10 Mg/Ml Susp) 10 mg PO Q24H [facility] Last Admin: 01/24/20 13:35 Dose: 10 mg Documented by: Fluconazole (Diflucan) 200 mg PO ONETIME ONE Stop: 01/25/20 09:01 Last Admin: 01/25/20 09:27 Dose: 200 mg Documented by: Gadobenate Dimeglumine (Multihance) 14 ml IVPUSH ONETIME ONE Stop: 01/23/20 11:07 Last Admin: 01/23/20 11:50 Dose: 14 ml Documented by: Heparin Sodium (Porcine) (Heparin Lock Flush 100 Units/Ml) 500 units FLUSH ONETIME ONE Stop: 01/24/20 10:23 Last Admin: 01/24/20 10:42 Dose: 500 units Documented by: Dextrose/Sodium Chloride (Dextrose 5%-Normal Saline) 1,000 mls @ 999 mls/hr IV ASDIRECTED [facility] Last Admin: 01/21/20 14:18 Dose: 999 mls/hr Documented by: Ampicillin Sodium/Sulbactam (Sodium 3 gm/ Sodium Chloride) 100 mls @ 200 mls/hr IV ONETIME ONE Stop: 01/21/20 15:02 Last Admin: 01/21/20 15:52 Dose: 200 mls/hr Documented by: Potassium Chloride 10 meq/ (Premix) 100 mls @ 100 mls/hr IV Q1H [facility] Stop: 01/21/20 19:44 Last Admin: 01/21/20 19:54 Dose: 100 mls/hr Documented by: Vancomycin HCl 1.75 gm/ Sodium (Chloride) 500 mls @ 250 mls/hr IV ONETIME ONE Stop: 01/21/20 14:38 Last Admin: 01/21/20 15:54 Dose: 250 mls/hr Documented by: Dextrose/Sodium Chloride (Dextrose 5%-Normal Saline) 1,000 mls @ 125 mls/hr IV ASDIRECTED [facility] Last Admin: 01/22/20 06:59 Dose: 125 mls/hr Documented by: Lactated Ringer's (Ringers, Lactated) 1,000 mls @ 50 mls/hr IV ASDIRECTED [facility] Last Admin: 01/23/20 16:15 Dose: 125 mls/hr Documented by: Potassium Phosphate 60 mmole/ (Sodium Chloride) 1,020 mls @ 102 mls/hr IV ONETIME ONE Stop: 01/22/20 20:59 Last Admin: 01/22/20 11:08 Dose: 102 mls/hr Documented by: Magnesium Sulfate 4 gm/ Premix 100 mls @ 25 mls/hr IV ONETIME ONE Stop: 01/22/20 14:59 Cefepime HCl 2 gm/ Premix 50 mls @ 100 mls/hr IV Q8H [facility] Last Admin: 01/25/20 10:34 Dose: 100 mls/hr Documented by: Magnesium Sulfate 4 gm/ Premix 50 mls @ 12.5 mls/hr IV ONETIME ONE Stop: 01/22/20 14:59 Magnesium Sulfate 4 gm/ Premix 100 mls @ 25 mls/hr IV ONETIME ONE Stop: 01/22/20 14:59 Last Admin: 01/22/20 11:09 Dose: 25 mls/hr Documented by: Vancomycin HCl 1 gm/ Sodium (Chloride) 250 mls @ 250 mls/hr IV Q12H [facility] Last Admin: 01/23/20 10:59 Dose: 250 mls/hr Documented by: Magnesium Sulfate 4 gm/ Premix 100 mls @ 25 mls/hr IV ONETIME ONE Stop: 01/23/20 13:59 Last Admin: 01/23/20 10:52 Dose: 25 mls/hr Documented by: Potassium Chloride 10 meq/ (Premix) 100 mls @ 100 mls/hr IV Q1H [facility] Stop: 01/23/20 15:59 Last Admin: 01/23/20 20:11 Dose: 100 mls/hr Documented by: Vancomycin HCl 1 gm/Vancomycin HCl 250 mg/ Sodium Chloride 250 mls @ 166.667 mls/hr IV Q12H [facility] Last Admin: 01/25/20 09:27 Dose: 166.667 mls/hr Documented by: Magnesium Sulfate/Dextrose 1 (gm/ Premix) 100 mls @ 100 mls/hr IV Q1H [facility] Stop: 01/23/20 18:29 Potassium Chloride 10 meq/ (Premix) 100 mls @ 100 mls/hr IV Q1H [facility] Stop: 01/23/20 20:29 Last Admin: 01/23/20 16:44 Dose: Not Given Documented by: Lactated Ringer's (Ringers, Lactated) 1,000 mls @ 50 mls/hr IV ASDIRECTED [facility] Last Admin: 01/24/20 10:32 Dose: 50 mls/hr Documented by: Loperamide HCl (Imodium) 2 mg PO Q6H PRN PRN Reason: Diarrhea Morphine Sulfate (Ms Contin) 15 mg PO BID [facility] Last Admin: 01/24/20 09:31 Dose: Not Given Documented by: Olanzapine (Zyprexa) 10 mg PO DAILY [facility] Prochlorperazine Maleate (Compazine) 10 mg PO Q6H PRN PRN Reason: Nausea Last Admin: 01/24/20 10:55 Dose: 10 mg Documented by: Sodium Chloride (Saline Flush) 10 ml FLUSH ASDIRECTED [facility] Stop: 01/23/20 13:00 Last Admin: 01/23/20 11:50 Dose: 10 ml Documented by: Valacyclovir HCl (Valtrex) 500 mg PO ONETIME ONE Stop: 01/25/20 18:01 Last Admin: 01/25/20 18:11 Dose: 500 mg Documented by: Vancomycin HCl (Pharmacy To Dose - Vancomycin) 1 dose .XX ASDIRECTED PRN PRN Reason: RX TO DOSE VANCO - Exam General: Reports: Alert, Oriented HEENT: Reports: Pupils Equal, Pupils Reactive, EOMI, Mucous Membr. Moist/[place] Neck: Reports: Supple Lungs: Reports: Clear to Auscultation, Normal Respiratory Effort, Decreased Breath Sounds (left) Cardiovascular: Reports: Regular Rate, Regular Rhythm GI/Abdominal Exam: Normal Bowel Sounds, Soft, Non-Tender, No Organomegaly, No Distention, No Abnormal Bruit, No Mass, Pelvis Stable (Male) Exam: No Hernia, Normal Inspection, Normal Prostate, Circumcised Rectal (Males) Exam: Normal Exam, Normal Rectal Tone, Prostate Normal Back Exam: Reports: Normal Inspection, Full Range of Motion Extremities: Normal Inspection, Normal Range of Motion, Non-Tender, No Pedal Edema, Normal Capillary Refill Skin: Reports: Warm, Dry, Intact Wound/Incisions: Reports: Healing Well Neurological: Reports: No New Focal Deficit Psy/Mental Status: Reports: Alert, Normal Affect, Normal Mood
== END 2020-01-26 13:40 | disposition home health service (06) | DRG 808 ==
LOC: JD.ED 12:09 → JD.ICU 16:29
PROVIDERS: ADMIT Internal Medicine; ATTEND Internal Medicine
DX: D70.1 Agranulocytosis secondary to cancer chemotherapy (principal); J96.91 Respiratory failure, unspecified with hypoxia; R50.9 Fever, unspecified; F10.230 Alcohol dependence with withdrawal, uncomplicated; E44.1 Mild protein-calorie malnutrition; D84.9 Immunodeficiency, unspecified; C34.92 Malignant neoplasm of unspecified part of left bronchus or lung; C78.7 Secondary malignant neoplasm of liver and intrahepatic bile duct; T45.1X5A Adverse effect of antineoplastic and immunosuppressive drugs, initial encounter; E83.42 Hypomagnesemia; R50.81 Fever presenting with conditions classified elsewhere; J44.9 Chronic obstructive pulmonary disease, unspecified; E88.09 Other disorders of plasma-protein metabolism, not elsewhere classified; N20.0 Calculus of kidney; F10.20 Alcohol dependence, uncomplicated; Z86.2 Personal history of diseases of the blood and blood-forming organs and certain disorders involving the immune mechanism; W19.XXXA Unspecified fall, initial encounter; E87.6 Hypokalemia; Z87.891 Personal history of nicotine dependence; Z20.828 Contact with and (suspected) exposure to other viral communicable diseases; G89.29 Other chronic pain; M54.5 Low back pain; Z79.899 Other long term (current) drug therapy; R06.02 Shortness of breath; R53.1 Weakness
CPT/HCPCS: 36415; 36556; 36600; 71045; 80053; 81001; 82803; 83605; 83735 ×2; 83880; 84100; 84145; 84484; 85025; 85379; 85610; 85730; 87040 ×2; 93005; 96365; 96368; 99285; J0295; J3370; J3480; J7040; J7042 ×2; J7050; U0002; 70553; 70553-26; 74177; 74177-26; 80048; 80202; 86140; 87045; 87046; 87177; 87328; 87329; 87493; 87899; 89055; 93010; 94762; 97110-GP; 97116-GP; 97162-GP; 97165-GO; 97530-GP; 99222; 99232; A9270-GY; A9577; J0692; J1642; J3475; J3490; J7030; J7120; J8540; Q0164

== ENCOUNTER 2020-03-31 20:12 | Emergency (ER) | payer MEDICARE, OTHER, SELFPAY ==
[2020-03-31] MEDS ORDERED: Sodium Chloride 0.9% 1,000 ML IV ONE (20:56)
--- NOTE | 2020-03-31 21:08 | EDM.PDOC ---
<Skip Myers - Last Filed: 04/01/20 06:45> ED HPI GENERAL MEDICAL PROBLEM - General Chief Complaint: Genitourinary Problem Stated Complaint: [facility] Time Seen by Provider: 03/31/20 20:30 Source of Information: Reports: Patient History Limitations: Reports: No Limitations - History of Present Illness INITIAL COMMENTS - FREE TEXT/NARRATIVE: Mr. De Souza is a very pleasant 70-year-old gentleman with a past medical history significant for stage IV lung cancer, diagnosed after the patient complained of lower left rib pain. A CT scan found a spiculated lesion numerous mets. A liver biopsy performed on 12/10/2019 confirmed the diagnosis. The patient received chemotherapy on 12/26/2019 and 01/02/2020, before discontinuing it due to side effects. He is unsure if he will restart chemotherapy. He now presents the ED after waking up this morning with chills without a fever. He also reports few days of increased urinary frequency with decreased flow, without dysuria. No cough or dyspnea. No recent nausea, vomiting, constipation, or diarrhea. The patient states that he often gets chills, which he attributes to 1 of his medicines. Here in the ED, the patient is found to be tachycardic at 156 bpm, otherwise, he is hemodynamically stable, afebrile, saturating 92% on room air. Other than his recurrent chills and a few days of urinary frequency, the patient denies having a recent fever, sore throat, ear pain, nasal or sinus congestion, cough, dyspnea, chest pain, palpitations, nausea, vomiting, constipation, diarrhea, abdominal pain, recent weight gain or weight loss, recent bloody bowel movements or black bowel movements, recent joint aches, headaches, or rashes. The patient's PCP is Dr. Rufino Vega. His Oncologist is Dr. Shaw Rain. - Related Data Allergies Allergy/AdvReac Type Severity Reaction Status Date / Time codeine AdvReac Agitation Verified 01/24/20 10:47 Home Meds: Home Meds dexAMETHasone [Dexamethasone] 4 mg PO DAILY 01/23/20 [History] oxyCODONE 5 mg PO Q6H PRN 01/23/20 [History] Morphine Sulfate 15 mg PO BID 03/31/20 [History] Potassium Chloride 10 meq PO DAILY 03/31/20 [History] Past Medical History HEENT History: Reports: Impaired Vision (wears glasses) Cardiovascular History: Reports: Hypertension (untreated) Respiratory History: Reports: COPD (suspected, not tested) Gastrointestinal History: Reports: GERD (untreated) Genitourinary History: Reports: Renal Calculus Neurological History: Reports: CVA (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 + tic disorder) Psychiatric History: Reports: Anxiety, Panic Attack Oncologic (Cancer) History: Reports: Lung (Stage IV, dx'd mid-November 2019, s/p 2 doses of CTx) - Infectious Disease History Infectious Disease History: Reports: Chicken Pox - Past Surgical History Cardiovascular Surgical History: Reports: Other (See Below) (Right Port-A-Cath) GI Surgical History: Reports: Colonoscopy Female Surgical History: Reports: Kidney stone extraction (left) Oncologic Surgical History: Reports: Other (See Below) (Liver bx 12/10/2019) Social & Family History - Family History Respiratory: Reports: COPD Oncologic: Reports: Liver, Lung - Tobacco Use Smoking Status *Q: Former Smoker Years of Tobacco use: 33 Packs/Tins Daily: 1.5 Month/Year Tobacco Last Used: Quit 2002 - Caffeine Use Caffeine Use: Reports: None Caffeine Use Comment: occasionally - Alcohol Use Alcohol Use History: Yes Date/Time of Last Drink Comment: Stopped 03/28/2020 Alcohol Use Frequency: Daily (3-4 beers/day) - Recreational Drug Use Recreational Drug Use: No - Living Situation & Occupation Living situation: Reports: Single, Alone Occupation: Retired ([employer] ED ROS GENERAL - Review of Systems Review Of Systems: Comprehensive ROS is negative, except as noted in HPI. Musculoskeletal: Reports: Back Pain (chronic) ED EXAM, GENERAL - Physical Exam Exam: See Below Exam Limited By: No Limitations General Appearance: Alert, WD/WN, No Apparent Distress Eye Exam: Bilateral Eye: EOMI, Normal Inspection Ears: Normal External Exam, Hearing Grossly Normal Nose: Normal Inspection Throat/Mouth: Normal Inspection, Normal Lips, Normal Voice, No Airway Compromise Head: Atraumatic, Normocephalic Neck: Normal Inspection, Full Range of Motion Respiratory/Chest: No Respiratory Distress, No Accessory Muscle Use, Decreased Breath Sounds. No: Crackles, Rhonchi, Wheezing, Stridor, Prolonged Expiration Cardiovascular: Normal Peripheral Pulses, No Edema, No Gallop, No JVD, No [place] r, No Rub, Tachycardia (regular) Peripheral Pulses: 3+: Radial (L), Radial (R) GI/Abdominal: Normal Bowel Sounds, Soft, No Organomegaly, No Distention, No Abnormal Bruit, No Mass, Tender (mild, generalized, non-focal) (Male) Exam: Deferred Rectal (Males) Exam: Deferred Back Exam: Normal Inspection, Full Range of Motion, NT Extremities: Normal Inspection, Normal Range of Motion, No Pedal Edema, Normal Capillary Refill Neurological: Alert, Oriented, Normal Cognition, No Motor/Sensory Deficits Psychiatric: Normal Affect Skin Exam: Warm, Dry, Intact, Normal Color, No Rash EKG INTERPRETATION EKG Date: 03/31/20 Time: 20:30 Rhythm: Other (Sinus tachycardia) Rate (Beats/Min): 152 [place]: Other (Extreme axis deviation, 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 He has not had a fever. He states that he often gets chills, that he believes is related to one of his medications. He reports a few days of increased urinary frequency with decreased flow, but no dysuria. No other symptoms. He is tachycardic, and he has mild generalized abdominal pain that he tells me is chronic. The remainder of his physical exam is unremarkable. An ECG was obtained at triage, which demonstrates a sinus tachycardia and LAFB. I have ordered a work-up that includes blood work, 2 sets of blood cultures, a urinalysis with a post-void bladder scan, a chest x-ray, orthostatics, and a swab for the SARS-CoV-2 virus. In the meantime, I was notified by Jessica HERNÁNDEZ that the patient's daughter called, and said that she does not want the patient to be admitted here, if he requires admission to the hospital. That being said, the patient is lucid and appears to be decisional. 03/31/20 21:49 Two-view chest radiograph reviewed. The cardiac silhouette is within normal limits. No pulmonary vascular congestion. No pleural effusions. No focal infiltrate, although an approximately 3 cm oval-appearing opacity is seen in the lower left lung. No pneumothorax. There is hyperinflation and bilateral diaphragmatic flattening, consistent with COPD. Formal read per the Radiologist pending. The patient's CBC is remarkable for a WBC count elevated at 25.09, but with 0% bandemia. His Hgb is slightly depressed at 13.2, with a Hct normal at 41.1, and the remainder of his CBC is unremarkable. His CMP is remarkable for a sodium slightly depressed at 133, which corrects to 135, and a blood glucose elevated at 284. His alkaline phosphatase is elevated at 277, with the remainder of his CMP being unremarkable. His magnesium level is depressed at 1.5. His troponin is undetectably low. His TSH is elevated at 6.729. His swab for the SARS-CoV-2 virus returned negative. The patient's lactic acid level has not yet resulted. Orthostatics and a urine sample with post-void bladder scan have not yet been collected. His leukocytosis and hyperglycemia are most likely due to the dexamethasone that he is taking. This indicates that the patient has prediabetes. Based on the above, I have ordered a 2 g Mg-rider. 03/31/20 21:58 The patient is not orthostatic. Notified by Jessica HERNÁNDEZ that his first liter of IV fluid has finished infusing. I will order a second liter at 150 mL/hr. 03/31/20 22:23 The patient's lactic acid level has returned elevated at 2.3. A urine sample with post-void bladder scan have not yet been collected. The elevated lactic acid level is difficult to interpret, since the patient's bicarbonate is normal at 30, with an anion gap of 13.0. It is possible that we are seeing a type B lactic acidosis due to hyperglycemia, although I think it is more likely that the patient has a combined lactic acidosis and metabolic alkalosis. I will order a repeat lactic acid level to be drawn 3 hours after the initial, at 00:30. In the meantime, the patient will continue to receive IV fluid. 04/01/20 02:01 The patient's repeat lactic acid level is down to 1.0. A urine sample with post-void bladder scan have not yet been collected. 04/01/20 06:45 The patient has just now provided a urine sample. 04/01/20 07:[address] Omega Walker, and care of the patient turned over to him at this time for change of shift. Dr. Walker will check the urinalysis results, post-void bladder scan volume, and determine the patient's disposition. Departure - Departure Disposition: Home, Self-Care 01 Clinical Impression: Chills (without fever) COPD (chronic obstructive pulmonary disease) Qualifiers: Chronic bronchitis type: simple - Discharge Information *PRESCRIPTION DRUG MONITORING PROGRAM REVIEWED*: Not Applicable *COPY OF PRESCRIPTION DRUG MONITORING REPORT IN PATIENT ESTELA: Not Applicable Instructions: Sepsis, Self Care, Adult Referrals: Rufino Vega Jr, MD [Ordering Only Provider] - WosShaw MD [Ordering Only Provider] - Forms: ED Department Discharge Additional Instructions: rest, continue current medications as prescribed. See Dr Vega in 2 to 3 days for recheck. Return to ED if symptoms worsening in any way. Sepsis Event Note (ED) - Evaluation Sepsis Screening Result: No Definite Risk <Jhon Walker - Last Filed: 04/01/20 13:31> Course - Vital Signs Last Recorded V/S: Last Vital Signs Temp 98.1 F 04/01/20 11:35 Pulse 138 H 04/01/20 13:25 Resp 30 H 04/01/20 13:25 BP 147/110 H 04/01/20 13:25 Pulse Ox 96 04/01/20 13:25 Orthostatic Blood Pressure [ 157/113 Standing] Orthostatic Blood Pressure [ 134/96 Supine] - Orders/Labs/Meds Orders: Active Orders 24 hr Category Date Time Status CULTURE BLOOD [BC] Stat Lab 03/31/20 21:35 Received CULTURE BLOOD [BC] Stat Lab 03/31/20 21:44 Received Blood Culture x2 Reflex Set [OM.PC] Stat Oth 03/31/20 20:55 Ordered Labs: Laboratory Tests 03/31/20 03/31/20 03/31/20 Range/Units 20:30 20:30 21:13 WBC 25.09 H (4.23-9.07) K/mm3 RBC 4.38 L (4.63-6.08) M/mm3 Hgb 13.2 L D (13.7-17.5) gm/dl Hct 41.1 (40.1-51.0) % MCV 93.8 H (79.0-92.2) fl MCH 30.1 (25.7-32.2) pg MCHC 32.1 L (32.2-35.5) g/dl RDW Std Deviation 47.0 H (35.1-43.9) fL Plt Count 310 (163-337) K/mm3 MPV 9.1 L (9.4-12.3) fl Neut % (Auto) (34.0-67.9) % Lymph % (Auto) (21.8-53.1) % [place] % (Auto) (5.3-12.2) % Eos % (Auto) (0.8-7.0) Baso % (Auto) (0.1-1.2) % Neut # (Auto) (1.78-5.38) K/mm3 Lymph # (Auto) (1.32-3.57) K/mm3 [place] # (Auto) (0.30-0.82) K/mm3 Eos # (Auto) (0.04-0.54) K/mm3 Baso # (Auto) (0.01-0.08) K/mm3 Neutrophils % (Manual) 84 H (40-60) % Band Neutrophils % 0 (0-10) % Lymphocytes % (Manual) 8 L (20-40) % Atypical Lymphs % 0 % Monocytes % (Manual) 7 (2-10) % Eosinophils % (Manual) 0 L (0.8-7.0) % Basophils % (Manual) 0 L (0.2-1.2) Promyelocytes % 1 Manual Slide Review Platelet Estimate Adequate Plt Morphology Comment Normal Hypochromasia 1+ slight RBC Morph Comment Abnormal Sodium 133 L (136-145) mEq/L Potassium 4.0 (3.5-5.1) mEq/L Chloride 94 L (98-107) mEq/L Carbon Dioxide 30 (21-32) mEq/L Anion Gap 13.0 (5-15) BUN 14 (7-18) mg/dL Creatinine 1.1 (0.7-1.3) mg/dL Est Cr Clr Drug Dosing 60.09 mL/min Estimated GFR (MDRD) > 60 (>60) mL/min BUN/Creatinine Ratio 12.7 L (14-18) Glucose 284 H (80-115) mg/dL Lactic Acid (0.4-2.0) mmol/L Calcium 9.7 (8.5-10.1) mg/dL Magnesium 1.5 L (1.8-2.4) mg/dl Total Bilirubin 0.6 (0.2-1.0) mg/dL AST 16 (15-37) U/L ALT 38 (16-63) U/L Alkaline Phosphatase 277 H (46-116) U/L Troponin I < 0.017 (0.00-0.056) ng/mL Total Protein 7.5 (6.4-8.2) g/dl Albumin 2.5 L (3.4-5.0) g/dl Globulin 5.0 gm/dL Albumin/Globulin Ratio 0.5 L (1-2) TSH 3rd Generation 6.729 H (0.358-3.74) uIU/mL Urine Color (Yellow) Urine Appearance (Clear) Urine pH (5.0-8.0) Ur Specific [place] (1.005-1.030) Urine Protein (Negative) Urine Glucose (UA) (Negative) Urine Ketones (Negative) Urine Occult Blood (Negative) Urine Nitrite (Negative) Urine Bilirubin (Negative) Urine Urobilinogen (0.2-1.0) Ur Leukocyte Esterase (Negative) Urine RBC (0-5) /hpf Urine WBC (0-5) /hpf Ur Epithelial Cells (0-5) /hpf Urine Bacteria (FEW) /hpf Urine Mucus (FEW) /hpf COVID-19 (ARNOLD) Negative (NEGATIVE) 03/31/20 04/01/20 04/01/20 Range/Units 21:35 00:34 06:48 WBC (4.23-9.07) K/mm3 RBC (4.63-6.08) M/mm3 Hgb (13.7-17.5) gm/dl Hct (40.1-51.0) % MCV (79.0-92.2) fl MCH (25.7-32.2) pg MCHC (32.2-35.5) g/dl RDW Std Deviation (35.1-43.9) fL Plt Count (163-337) K/mm3 MPV (9.4-12.3) fl Neut % (Auto) (34.0-67.9) % Lymph % (Auto) (21.8-53.1) % [place] % (Auto) (5.3-12.2) % Eos % (Auto) (0.8-7.0) Baso % (Auto) (0.1-1.2) % Neut # (Auto) (1.78-5.38) K/mm3 Lymph # (Auto) (1.32-3.57) K/mm3 [place] # (Auto) (0.30-0.82) K/mm3 Eos # (Auto) (0.04-0.54) K/mm3 Baso # (Auto) (0.01-0.08) K/mm3 Neutrophils % (Manual) (40-60) % Band Neutrophils % (0-10) % Lymphocytes % (Manual) (20-40) % Atypical Lymphs % % Monocytes % (Manual) (2-10) % Eosinophils % (Manual) (0.8-7.0) % Basophils % (Manual) (0.2-1.2) Promyelocytes % Manual Slide Review Platelet Estimate Plt Morphology Comment Hypochromasia RBC Morph Comment Sodium (136-145) mEq/L Potassium (3.5-5.1) mEq/L Chloride (98-107) mEq/L Carbon Dioxide (21-32) mEq/L Anion Gap (5-15) BUN (7-18) mg/dL Creatinine (0.7-1.3) mg/dL Est Cr Clr Drug Dosing mL/min Estimated GFR (MDRD) (>60) mL/min BUN/Creatinine Ratio (14-18) Glucose (80-115) mg/dL Lactic Acid 2.3 H* 1.0 (0.4-2.0) mmol/L Calcium (8.5-10.1) mg/dL Magnesium (1.8-2.4) mg/dl Total Bilirubin (0.2-1.0) mg/dL AST (15-37) U/L ALT (16-63) U/L Alkaline Phosphatase (46-116) U/L Troponin I (0.00-0.056) ng/mL Total Protein (6.4-8.2) g/dl Albumin (3.4-5.0) g/dl Globulin gm/dL Albumin/Globulin Ratio (1-2) TSH 3rd Generation (0.358-3.74) uIU/mL Urine Color Yellow (Yellow) Urine Appearance Clear (Clear) Urine pH 6.5 (5.0-8.0) Ur Specific [place] 1.025 (1.005-1.030) Urine Protein 1+ H (Negative) Urine Glucose (UA) Negative (Negative) Urine Ketones Negative (Negative) Urine Occult Blood Trace-intact H (Negative) Urine Nitrite Negative (Negative) Urine Bilirubin Negative (Negative) Urine Urobilinogen 0.2 (0.2-1.0) Ur Leukocyte Esterase Negative (Negative) Urine RBC 5-10 H (0-5) /hpf Urine WBC 0-5 (0-5) /hpf Ur Epithelial Cells 5-10 H (0-5) /hpf Urine Bacteria Few (FEW) /hpf Urine Mucus Moderate H (FEW) /hpf COVID-19 ([facility]OLD) (NEGATIVE) 04/01/20 04/01/20 Range/Units 11:44 11:44 WBC 16.81 H (4.23-9.07) K/mm3 RBC 4.11 L (4.63-6.08) M/mm3 Hgb 12.5 L (13.7-17.5) gm/dl Hct 39.4 L (40.1-51.0) % MCV 95.9 H (79.0-92.2) fl MCH 30.4 (25.7-32.2) pg MCHC 31.7 L (32.2-35.5) g/dl RDW Std Deviation 48.2 H (35.1-43.9) fL Plt Count 238 (163-337) K/mm3 MPV 8.8 L (9.4-12.3) fl Neut % (Auto) 81.9 H (34.0-67.9) % Lymph % (Auto) 9.4 L (21.8-53.1) % [place] % (Auto) 6.9 (5.3-12.2) % Eos % (Auto) 0.7 L (0.8-7.0) Baso % (Auto) 0.1 (0.1-1.2) % Neut # (Auto) 13.78 H (1.78-5.38) K/mm3 Lymph # (Auto) 1.58 (1.32-3.57) K/mm3 [place] # (Auto) 1.16 H (0.30-0.82) K/mm3 Eos # (Auto) 0.11 (0.04-0.54) K/mm3 Baso # (Auto) 0.01 (0.01-0.08) K/mm3 Neutrophils % (Manual) (40-60) % Band Neutrophils % (0-10) % Lymphocytes % (Manual) (20-40) % Atypical Lymphs % % Monocytes % (Manual) (2-10) % Eosinophils % (Manual) (0.8-7.0) % Basophils % (Manual) (0.2-1.2) Promyelocytes % Manual Slide Review Abnormal smear Platelet Estimate Plt Morphology Comment Hypochromasia RBC Morph Comment Sodium (136-145) mEq/L Potassium (3.5-5.1) mEq/L Chloride (98-107) mEq/L Carbon Dioxide (21-32) mEq/L Anion Gap (5-15) BUN (7-18) mg/dL Creatinine (0.7-1.3) mg/dL Est Cr Clr Drug Dosing mL/min Estimated GFR (MDRD) (>60) mL/min BUN/Creatinine Ratio (14-18) Glucose (80-115) mg/dL Lactic Acid 1.5 (0.4-2.0) mmol/L Calcium (8.5-10.1) mg/dL Magnesium (1.8-2.4) mg/dl Total Bilirubin (0.2-1.0) mg/dL AST (15-37) U/L ALT (16-63) U/L Alkaline Phosphatase (46-116) U/L Troponin I (0.00-0.056) ng/mL Total Protein (6.4-8.2) g/dl Albumin (3.4-5.0) g/dl Globulin gm/dL Albumin/Globulin Ratio (1-2) TSH 3rd Generation (0.358-3.74) uIU/mL Urine Color (Yellow) Urine Appearance (Clear) Urine pH (5.0-8.0) Ur Specific [place] (1.005-1.030) Urine Protein (Negative) Urine Glucose (UA) (Negative) Urine Ketones (Negative) Urine Occult Blood (Negative) Urine Nitrite (Negative) Urine Bilirubin (Negative) Urine Urobilinogen (0.2-1.0) Ur Leukocyte Esterase (Negative) Urine RBC (0-5) /hpf Urine WBC (0-5) /hpf Ur Epithelial Cells (0-5) /hpf Urine Bacteria (FEW) /hpf Urine Mucus (FEW) /hpf COVID-19 ([facility]) (NEGATIVE) Meds: Medications Discontinued Medications Generic Name Dose Route Start Last Admin Trade Name Brodieq PRN Reason Stop Dose Admin Heparin Sodium (Porcine) 500 units 04/01/20 12:45 04/01/20 12:52 Heparin Lock Flush 100 Units/Ml FLUSH 500 units ASDIRECTED PRN Administration deaccess port Sodium Chloride 1,000 mls @ 999 mls/hr 03/31/20 20:56 03/31/20 21:02 Normal Saline IV 03/31/20 21:56 999 mls/hr ONETIME ONE Administration Magnesium Sulfate 2 gm/ Premix 50 mls @ 25 mls/hr 03/31/20 21:51 03/31/20 21:57 IV 03/31/20 23:50 25 mls/hr ONETIME ONE Administration Sodium Chloride 1,000 mls @ 150 mls/hr 03/31/20 22:00 03/31/20 22:03 Normal Saline IV 150 mls/hr ASDIRECTED SIS Administration - Re-Assessments/Exams Free Text/Narrative Re-Assessment/Exam: 04/01/20 10:45. Have assumed care from Dr Myers change of shift, awaiting UA results from lab at change of shift. Hx and exam as documented by Dr Myers. REview of UA delayed by caring for a critical patient and multiple other sick patient. Pt feels better at this time, follow up lactic acid 1.0 down from 2.3 on arrival. Pt is tired of waiting but otherwise feeling OK at this time. UA does not show infection. I reviewed CXR and that does not show an infiltrate. I was not aware he had come in with a high WBC of around 25,000, lactic acid 2.3. Will repeat vitals, repeat WBC and lactic acid, let him eat. If those labs are OK will plan to discharge home. 12:30. Pt ate well. no chest or abd pain. Feels up to going home. I see his TSH was mildly elevated. I did check on blood cultures with lab. No formal report until 24 hr but now at 16 hrs there is no visible growth so still neg. at this time. I have requested he follow up with Dr Vega in 2 to 3 days, he is agreeable to that, discharge instr. as documented. 04/01/20 13:29 Departure - Departure Time of Disposition: 12:39 Condition: Fair Sepsis Event Note (ED) - Focused Exam Vital Signs: Vital Signs Temp Pulse Resp BP Pulse Ox 04/01/20 13:25 138 H 30 H 147/110 H 96 04/01/20 11:35 98.1 F 122 H 24 H 135/96 H 95 04/01/20 06:38 83 150/91 H 90 L 04/01/20 04:47 80 16 144/84 H 90 L
[2020-03-31] MEDS ORDERED: Magnesium Sulfate/Water 2 GM in Premix Bag 1 BAG IV ONE (21:51)
[2020-03-31] MEDS ORDERED: Sodium Chloride 0.9% 1,000 ML IV SCH (22:00)
--- NOTE | 2020-04-01 06:35 | CR ---
Chest: 2 views of the chest were obtained. Comparison: Prior chest x-ray of 01/21/20. Right-sided infusion port is seen. Decreased size of the left lower lung mass is seen within the left base. On the lateral view this mass measures approximately 3.0 cm. Surrounding areas of increased linear densities are seen most likely representing scarring. Lungs are hyperinflated. On the lateral view a possible additional nodule is seen seen more superiorly within the right lower lobe measuring 1.7 cm. Lungs otherwise are clear. No findings of definite pneumonia. Bony structures are grossly intact. Impression: 1. Left lower lung mass slightly decreased in size from previous exam. Slight areas of increased density around this finding are seen most likely representing scarring from treatment. 2. Equivocal second nodule is noted on the lateral view more superiorly measuring 1.7 cm. 3. Emphysematous change. 4. No definite findings of pneumonia are appreciated. Diagnostic code #9 This report was dictated in MDT
== END 2020-04-01 13:25 | disposition home or self-care (01) ==
LOC: JD.ED 20:12
DX: J44.9 Chronic obstructive pulmonary disease, unspecified (principal); I10 Essential (primary) hypertension; R00.0 Tachycardia, unspecified; Z87.891 Personal history of nicotine dependence; Z88.5 Allergy status to narcotic agent; Z20.828 Contact with and (suspected) exposure to other viral communicable diseases
CPT/HCPCS: 36415; 51798; 71046; 80053; 81001; 83605; 83735; 84443; 84484; 85007; 85025; 85027; 87040; 93005; 96361; 96365; 96366; 99284; J1642; J3475; J7030; U0002; 87076; 87181; 93010

== ENCOUNTER 2020-04-15 18:40 | Inpatient (IN) | payer MEDICARE, OTHER ==
[2020-04-15] MEDS ORDERED: Sodium Chloride 0.9% 10 ML Syringe FLUSH PRN (19:23)
--- NOTE | 2020-04-15 19:37 | EDM.PDOC ---
ED HPI GENERAL MEDICAL PROBLEM - General Chief Complaint: Fever Stated Complaint: [facility] Time Seen by Provider: 04/15/20 19:07 Source of Information: Reports: Patient History Limitations: Reports: Altered Mental Status (Somewhat confused - had difficulty concentrating) - History of Present Illness INITIAL COMMENTS - FREE TEXT/NARRATIVE: Mr. De Souza is a very pleasant 70-year-old gentleman with a past medical history significant for stage IV lung cancer, diagnosed after he complained of lower left rib pain. A CT scan found a spiculated lesion with numerous mets. A liver biopsy performed on 12/10/2019 confirmed the diagnosis. The patient received chemotherapy on 12/26/2019 and 01/02/2020, before discontinuing it due to side effects. He has not restarted chemotherapy, although he has received some radiation therapy to a hip due to metastases. He now presents to the ED by EMS with a report of increased weakness, fever, and altered mental status/confusion. The timeframe for this is unclear. Medical records from the patient's last ED visit, on 03/31/2020, indicate that blood cultures grew out gram-positive coccobacilli and gram-positive cocci. The final culture results grew Propionibacterium acnes in one anaerobic bottle, with the other 3 bottles remaining negative. The patient was subsequently admitted to [facility], where, we learned, they felt that the blood culture was a contaminant, however, he was treated with antibiotics nevertheless. We are told that the patient was prescribed both Bactrim and Keflex, however, he takes them only sporadically, if at all. Here in the ED, the patient was initially found to be tachycardic at 127 bpm, slightly tachypneic at 25 rpm, and hypoxemic with an oxygen saturation of 86% on room air, 96% on 2 L of oxygen per nasal cannula. A subsequent BP, however, was down to 94/60. We are told that hospice was consulted earlier today, however, it does not appear that the patient has actually signed with hospice. When asked if he would like us to pursue a work-up and treatment for an infection, versus make him comfortable, the patient was unable to decide. It does not appear that he has given this much thought in the past. He does, however, indicate that he is DNR. The patient's PCP is Dr. Rufino Vega. His Oncologist is Dr. Shaw Rain. - Related Data Allergies Allergy/AdvReac Type Severity Reaction Status Date / Time codeine AdvReac Agitation Verified 04/15/20 18:50 Home Meds: Home Meds oxyCODONE 5 mg PO Q6H PRN 01/23/20 [History] Morphine Sulfate 15 mg PO BID 03/31/20 [History] Potassium Chloride 10 meq PO DAILY 03/31/20 [History] Sulfamethoxazole/Trimethoprim [Bactrim Ds Tablet] 1 each PO BID 04/15/20 [History] Tamsulosin HCl [Flomax] 0.4 mg PO DAILY 04/15/20 [History] cephALEXin [Keflex] 500 mg PO QID 04/15/20 [History] dexAMETHasone [Dexamethasone] 2 mg PO BID 04/15/20 [History] Past Medical History HEENT History: Reports: Impaired Vision (wears glasses) Cardiovascular History: Reports: Hypertension (untreated) Respiratory History: Reports: COPD (suspected, not tested) Gastrointestinal History: Reports: GERD (untreated) Genitourinary History: Reports: Renal Calculus Neurological History: Reports: CVA (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 + tic disorder) Psychiatric History: Reports: Anxiety, Panic Attack Oncologic (Cancer) History: Reports: Lung (stage IV, dx'd mid-November 2019, s/p 2 doses of CTx, untx'd since) - Infectious Disease History Infectious Disease History: Reports: Chicken Pox - Past Surgical History Cardiovascular Surgical History: Reports: Other (See Below) (Right Port-A-Cath) GI Surgical History: Reports: Colonoscopy Male Surgical History: Reports: Kidney Stone Extraction (left) Oncologic Surgical History: Reports: Other (See Below) (Liver biopsy 12/10/2019) Social & Family History - Family History Respiratory: Reports: COPD Oncologic: Reports: Liver, Lung - Tobacco Use Smoking Status *Q: Former Smoker Years of Tobacco use: 33 Packs/Tins Daily: 1.5 Month/Year Tobacco Last Used: Quit 2002 - Alcohol Use Alcohol Use History: Yes Date/Time of Last Drink Comment: Stopped 03/28/2020 Alcohol Use Frequency: Daily (3-4 beers/day) - Recreational Drug Use Recreational Drug Use: No - Living Situation & Occupation Living situation: Reports: Single, Alone Occupation: Retired ([employer]) ED ROS GENERAL - Review of Systems Review Of Systems: Comprehensive ROS is negative, except as noted in HPI. ED EXAM, SEPSIS - Physical Exam Exam: See Below Exam Limited By: No Limitations General Appearance: No Apparent Distress, Lethargic (mild), Thin Eye Exam: Bilateral Eye: EOMI, Normal Inspection Ears: Normal External Exam, Hearing Grossly Normal Nose: Normal Inspection Throat/Mouth: Normal Inspection, Normal Lips, Normal Voice, No Airway Compromise Head: Atraumatic, Normocephalic Neck: Normal Inspection, Full Range of Motion Respiratory/Chest: No Respiratory Distress, No Accessory Muscle Use, Decreased Breath Sounds, Other (Right Port-A-Cath in place). No: Crackles, Rhonchi, Wheezing, Stridor, Prolonged Expiration Cardiovascular: Normal Peripheral Pulses, No Edema, No Gallop, No JVD, No Murmur, No Rub, Tachycardia (regular) Peripheral Pulses: 2+: Radial (L), Radial (R) GI/Abdominal Exam: Normal Bowel Sounds, Soft, Non-Tender, No Organomegaly, No Distention, No Abnormal Bruit, No Mass Back: Normal Inspection, Full Range of Motion, NT Extremities: Normal Inspection, Normal Range of Motion, No Pedal Edema, Normal Capillary Refill (feet are cool, but legs and hands are warm) Neurological: Alert, No Motor/Sensory Deficits, Confused Psychiatric: Normal Affect Skin: Warm, Dry, Intact, Normal Color, No Rash EKG INTERPRETATION EKG Date: 04/15/20 Time: 18:49 Rhythm: Other (Sinus tachycardia) Rate (Beats/Min): 126 Fries: Normal P-Wave: Enlarged (NOA) QRS: Normal ST-T: Normal QT: Normal Comparison: Change From Previous EKG (ECG 03/31/2020 had extreme axis deviation) Course - Vital Signs Last Recorded V/S: Last Vital Signs Temp 37.1 C 04/16/20 00:44 Pulse 88 04/16/20 00:44 Resp 20 04/16/20 00:44 BP 111/67 04/16/20 00:44 Pulse Ox 97 04/16/20 00:44 - Orders/Labs/Meds Orders: Active Orders 24 hr Category Date Time Status Insert Urinary Catheter [OM.PC] Stat Care 04/15/20 21:05 Ordered Urinary Catheter Assessment [RC] ASDIRECTED Care 04/15/20 21:28 Active CULTURE BLOOD [BC] Stat Lab 04/15/20 19:40 Received CULTURE BLOOD [BC] Stat Lab 04/15/20 19:50 Received CULTURE URINE [RM] Stat Lab 04/15/20 21:05 Received Sodium Chloride 0.9% [Saline Flush] Med 04/15/20 19:23 Active 10 ml FLUSH ASDIRECTED PRN Blood Culture x2 Reflex Set [OM.PC] Stat Oth 04/15/20 19:23 Ordered Saline Lock Insert [OM.PC] Stat Oth 04/15/20 19:23 Ordered Medication Orders Sodium Chloride (Normal Saline) 1,000 mls @ 100 mls/hr IV ASDIRECTED SIS Sodium Chloride (Saline Flush) 10 ml FLUSH ASDIRECTED PRN PRN Reason: Keep Vein Open Last Admin: 04/15/20 19:49 Dose: 10 ml Documented by: CELI Labs: Laboratory Tests 04/15/20 04/15/20 04/15/20 Range/Units 19:05 19:05 19:05 WBC 20.03 H (4.23-9.07) K/mm3 RBC 3.52 L (4.63-6.08) M/mm3 Hgb 10.3 L D (13.7-17.5) gm/dl Hct 33.7 L (40.1-51.0) % MCV 95.7 H (79.0-92.2) fl MCH 29.3 (25.7-32.2) pg MCHC 30.6 L (32.2-35.5) g/dl RDW Std Deviation 48.3 H (35.1-43.9) fL Plt Count 248 (163-337) K/mm3 MPV 9.4 (9.4-12.3) fl Neutrophils % (Manual) 89 H (40-60) % Band Neutrophils % 0 (0-10) % Lymphocytes % (Manual) 6 L (20-40) % Atypical Lymphs % 0 % Monocytes % (Manual) 5 (2-10) % Eosinophils % (Manual) 0 L (0.8-7.0) % Basophils % (Manual) 0 L (0.2-1.2) Platelet Estimate Adequate RBC Morph Comment Normal Puncture Site ABG pH (7.35-7.45) ABG pCO2 (35.0-45.0) mmHg ABG pO2 (80.0-100.0) mmHg ABG HCO3 (22.0-26.0) meq/L ABG O2 Saturation (96.0-97.0) % ABG Base Excess (-2-2.0) A-a Gradient mmHg O2 Delivery Device Oxygen Flow Rate FiO2 (21.00-100.00) % Sodium 135 L (136-145) mEq/L Potassium 4.8 (3.5-5.1) mEq/L Chloride 99 (98-107) mEq/L Carbon Dioxide 30 (21-32) mEq/L Anion Gap 10.8 (5-15) BUN 19 H (7-18) mg/dL Creatinine 1.3 (0.7-1.3) mg/dL Est Cr Clr Drug Dosing 52.62 mL/min Estimated GFR (MDRD) 55 (>60) mL/min BUN/Creatinine Ratio 14.6 (14-18) Glucose 165 H (80-115) mg/dL Lactic Acid 0.8 (0.4-2.0) mmol/L Calcium 9.1 (8.5-10.1) mg/dL Magnesium 1.4 L (1.8-2.4) mg/dl Total Bilirubin 0.6 (0.2-1.0) mg/dL AST 21 (15-37) U/L ALT 55 (16-63) U/L Alkaline Phosphatase 450 H (46-116) U/L Troponin I < 0.017 (0.00-0.056) ng/mL Total Protein 6.4 (6.4-8.2) g/dl Albumin 1.7 L (3.4-5.0) g/dl Globulin 4.7 gm/dL Albumin/Globulin Ratio 0.4 L (1-2) Urine Color (Yellow) Urine Appearance (Clear) Urine pH (5.0-8.0) Ur Specific Marty (1.005-1.030) Urine Protein (Negative) Urine Glucose (UA) (Negative) Urine Ketones (Negative) Urine Occult Blood (Negative) Urine Nitrite (Negative) Urine Bilirubin (Negative) Urine Urobilinogen (0.2-1.0) Ur Leukocyte Esterase (Negative) Urine RBC (0-5) /hpf Urine WBC (0-5) /hpf Ur Squamous Epith Cells (0-5) /hpf Urine Bacteria (FEW) /hpf Urine Mucus (FEW) /hpf SARS-CoV-2 RNA (ARNOLD) (NEGATIVE) 04/15/20 04/15/20 04/15/20 Range/Units 19:40 19:54 21:05 WBC (4.23-9.07) K/mm3 RBC (4.63-6.08) M/mm3 Hgb (13.7-17.5) gm/dl Hct (40.1-51.0) % MCV (79.0-92.2) fl MCH (25.7-32.2) pg MCHC (32.2-35.5) g/dl RDW Std Deviation (35.1-43.9) fL Plt Count (163-337) K/mm3 MPV (9.4-12.3) fl Neutrophils % (Manual) (40-60) % Band Neutrophils % (0-10) % Lymphocytes % (Manual) (20-40) % Atypical Lymphs % % Monocytes % (Manual) (2-10) % Eosinophils % (Manual) (0.8-7.0) % Basophils % (Manual) (0.2-1.2) Platelet Estimate RBC Morph Comment Puncture Site Lt radial ABG pH 7.39 (7.35-7.45) ABG pCO2 43.6 (35.0-45.0) mmHg ABG pO2 99.0 (80.0-100.0) mmHg ABG HCO3 26.0 (22.0-26.0) meq/L ABG O2 Saturation 96.3 (96.0-97.0) % ABG Base Excess 1.5 (-2-2.0) A-a Gradient 47 mmHg O2 Delivery Device Nasal cannula Oxygen Flow Rate 2.0 FiO2 28.00 (21.00-100.00) % Sodium (136-145) mEq/L Potassium (3.5-5.1) mEq/L Chloride (98-107) mEq/L Carbon Dioxide (21-32) mEq/L Anion Gap (5-15) BUN (7-18) mg/dL Creatinine (0.7-1.3) mg/dL Est Cr Clr Drug Dosing mL/min Estimated GFR (MDRD) (>60) mL/min BUN/Creatinine Ratio (14-18) Glucose (80-115) mg/dL Lactic Acid (0.4-2.0) mmol/L Calcium (8.5-10.1) mg/dL Magnesium (1.8-2.4) mg/dl Total Bilirubin (0.2-1.0) mg/dL AST (15-37) U/L ALT (16-63) U/L Alkaline Phosphatase (46-116) U/L Troponin I (0.00-0.056) ng/mL Total Protein (6.4-8.2) g/dl Albumin (3.4-5.0) g/dl Globulin gm/dL Albumin/Globulin Ratio (1-2) Urine Color Valeri H (Yellow) Urine Appearance Cloudy H (Clear) Urine pH 5.5 (5.0-8.0) Ur Specific Marty > or = 1.030 (1.005-1.030) Urine Protein 2+ H (Negative) Urine Glucose (UA) Negative (Negative) Urine Ketones Trace H (Negative) Urine Occult Blood 3+ H (Negative) Urine Nitrite Negative (Negative) Urine Bilirubin 2+ H (Negative) Urine Urobilinogen 2.0 H (0.2-1.0) Ur Leukocyte Esterase Trace H (Negative) Urine RBC >100 H (0-5) /hpf Urine WBC 10-20 H (0-5) /hpf Ur Squamous Epith Cells 20-30 H (0-5) /hpf Urine Bacteria Many H (FEW) /hpf Urine Mucus Moderate H (FEW) /hpf SARS-CoV-2 RNA (ARNOLD) Negative (NEGATIVE) Meds: Medications Generic Name Dose Route Start Last Admin Trade Name Freq PRN Reason Stop Dose Admin Sodium Chloride 1,000 mls @ 100 mls/hr 04/16/20 01:30 Normal Saline IV ASDIRECTED SIS Sodium Chloride 10 ml 04/15/20 19:23 04/15/20 19:49 Saline Flush FLUSH 10 ml ASDIRECTED PRN Administration Keep Vein Open Discontinued Medications Generic Name Dose Route Start Last Admin Trade Name Freq PRN Reason Stop Dose Admin Sodium Chloride 2,175 mls @ 999 mls/hr 04/15/20 19:23 04/15/20 21:19 Normal Saline IV 04/15/20 21:33 150 mls/hr BOLUS ONE Administration Protocol Sodium Chloride Confirm 04/15/20 20:53 04/15/20 21:19 Normal Saline Administered 04/15/20 20:54 Not Given Dose 1,000 mls @ as directed .ROUTE .STK-MED ONE Ceftriaxone Sodium 1 gm/ 100 mls @ 200 mls/hr 04/15/20 23:15 04/15/20 23:25 Sodium Chloride IV 04/15/20 23:44 200 mls/hr ONETIME STA Administration Magnesium Sulfate 2 gm 04/15/20 20:56 04/15/20 21:23 Magnesium Sulfate In Water Premix IV 04/15/20 20:57 2 gm ONETIME STA Administration - Re-Assessments/Exams Free Text/Narrative Re-Assessment/Exam: 04/15/20 19:32 As above, the patient has a history of untreated metastatic lung cancer, who is now brought to the ED by EMS with a report of increased weakness, fever, and altered mental status/confusion, duration unclear. I was able to have a conversation with the patient, although he had some difficulty staying on task. I asked him, given his history of untreated terminal lung cancer, if he would want us to treat him for an infection, or if he would prefer us to just keep him comfortable. It does not appear that he has considered what to do at the end of his life. He was undecided. In cases where patients are on the fence, I prefer to treat unless specifically directed otherwise by the patient or his POA, in the event that the patient is not decisional. I have therefore ordered a work-up that includes blood work, 2 sets of blood cultures, an arterial blood gas, a urinalysis by quick-cath, a portable chest x-ray, and a swab for the SARS-CoV-2 virus. In the meantime, the patient will be given a bolus of IV fluid 30 mL/kg = 2175 ml. His MAP is currently 73, therefore vasopressors are not currently indicated. 04/15/20 20:50 Notified by Ayleen HERNÁNDEZ that the patient was given 1 L of IV fluid by EMS en route tot he ED. We will subtract that from the 2175 ml bolus that was ordered. Portable chest radiograph reviewed. The cardiac silhouette is within normal limits. No pulmonary vascular congestion. No pleural effusions seen on this AP view. No focal infiltrate. No pneumothorax. Masslike density overlying the cardiac apex. Right-sided Port-A-Cath noted. Formal read per the Radiologist pending. The patient's CBC is remarkable for WBC count elevated at 20.03, but with 0% bandemia. His H/H is slightly depressed at 10.3/33.7, with the remainder of his CBC being unremarkable. His CMP is remarkable for a sodium at the lower limits of normal of 135. His BUN is slightly elevated at 19, with a Cr normal at 1.3. His blood glucose is elevated at 165, and his alkaline phosphatase is elevated at 450, with the remainder of his CMP being unremarkable. His magnesium level is severely depressed at 1.4. His lactic acid level is within normal limits at 0.8. His troponin is undetectably low. His ABG represents a chronic respiratory alkalosis. The patient's a swab for the SARS-CoV-2 virus is negative. A urine sample for the urinalysis has not yet been collected. 04/15/20 23:15 The patient's urinalysis, collected by straight cath, is remarkable for 3+ occult blood with >100 cc, trace leukocyte esterase with 10-20 WBCs, nitrate negative with many bacteria, and 20-30 squamous epithelial cells. Based on the above, I have ordered a urine culture and 1 g of IV Rocephin. At present, the patient's BP is 103/70, with a HR of 193, and an oxygen saturation of 94% 2 L of oxygen per nasal cannula. I will recommend placement into observation. 04/15/20 23:22 I discussed the patient's situation with him and recommended observation. He was agreeable. Case then discussed with Dr. Etienne at 23:19. He accepted the patient for placement into observation. I will write for a.m. labs including a CBC, CMP, and Mg level. Departure - Departure Time of Disposition: 23:23 Disposition: Refer to Observation Condition: Fair Clinical Impression: Hypotension, UTI (urinary tract infection), Metastatic lung cancer (metastasis from lung to other site), Hypomagnesemia - Discharge Information *PRESCRIPTION DRUG MONITORING PROGRAM REVIEWED*: Not Applicable *COPY OF PRESCRIPTION DRUG MONITORING REPORT IN PATIENT ESTELA: Not Applicable Sepsis Event Note (ED) - Evaluation Sepsis Screening Result: Possible Severe Sepsis Risk - Focused Exam Vital Signs: Vital Signs Temp Pulse Resp BP Pulse Ox 04/15/20 21:15 36.9 C 105 H 16 97/62 98 04/15/20 21:00 94/53 L 04/15/20 20:45 96/71 04/15/20 18:46 37.7 C 127 H 25 H 97/71 86 L - My Orders Last 24 Hours: My Active Orders 04/15/20 19:23 Sodium Chloride 0.9% [Saline Flush] 10 ml FLUSH ASDIRECTED PRN Blood Culture x2 Reflex Set [OM.PC] Stat Saline Lock Insert [OM.PC] Stat 04/15/20 19:40 CULTURE BLOOD [BC] Stat 04/15/20 19:50 CULTURE BLOOD [BC] Stat 04/15/20 21:05 Insert Urinary Catheter [OM.PC] Stat CULTURE URINE [RM] Stat 04/15/20 21:28 Urinary Catheter Assessment [RC] ASDIRECTED - Assessment/Plan Last 24 Hours: My Active Orders 04/15/20 19:23 Sodium Chloride 0.9% [Saline Flush] 10 ml FLUSH ASDIRECTED PRN Blood Culture x2 Reflex Set [OM.PC] Stat Saline Lock Insert [OM.PC] Stat 04/15/20 19:40 CULTURE BLOOD [BC] Stat 04/15/20 19:50 CULTURE BLOOD [BC] Stat 04/15/20 21:05 Insert Urinary Catheter [OM.PC] Stat CULTURE URINE [RM] Stat 04/15/20 21:28 Urinary Catheter Assessment [RC] ASDIRECTED
[2020-04-15] MEDS ORDERED: Sodium Chloride 0.9% 1,000 ML ONE (20:53)
[2020-04-15] MEDS ORDERED: Magnesium Sulfate/Water 2 GM/50 ML Premix Bag IV STA (20:56)
--- NOTE | 2020-04-15 20:57 | CR ---
Chest: Portable view of the chest was obtained. Comparison: Prior chest x-ray of 03/31/20. Heart size and mediastinum are normal. Right-sided infusion catheter is seen. Rounded parenchymal density is noted behind the left heart. This is increased from prior study. This measures about 4.5 cm and may represent a left lower lung mass or nodular area of pneumonia. Bony structures are osteopenic. Impression: 1. 4.5 cm left retrocardiac nodule. Nodular area of pneumonia or nodular mass is possible. Given right infusion port, and increasing mass is more likely. 2. Other portions of the chest appear clear. Diagnostic code #9 This report was dictated in MDT
[2020-04-15] MEDS ORDERED: cefTRIAXone 1 GM in Sodium Chloride 0.9% 100 ML IV STA (23:15)
[2020-04-16] MEDS: Sodium Chloride 0.9% 1,000 ML IV SCH ×3 (03:58→23:59)
--- NOTE | 2020-04-16 07:21 | PCM.HP.2 ---
H&P History of Present Illness - General Date of Service: 04/16/20 Admit Problem/Dx: Admission Diagnosis/Problem Admission Diagnosis/Problem Hypotension Source of Information: Patient, Old Records, Provider, RN, RN Notes Reviewed History Limitations: Reports: No Limitations - History of Present Illness Initial Comments - Free Text/Narative: This is a 70-year-old male who presented to ED on 04/15/2020 with increased weakness, fever, altered mental status, and confusion. He does carry history of stage IV lung cancer which was diagnosed after a work-up for rib pain. CT sc an found a spiculated lesion and mets. Liver biopsy was performed on and confirms the diagnosis. Per the ED note patient received chemotherapy on 12/26/2019 and 01/02/2020 but discontinued it due to side effects. He has not had any chemotherapy since although he has had some radiation to his hip due to metastasis. Medical records show the patient was in the ED on 03/31/2020. Blood cultures from that visit grew out Propionibacterium acnes in 1 anaerobic bottle and the 3 other bottles remain negative. He was admitted at [facility], after his oncology team told him to go to the ED there. They felt this was likely contaminant but he was given antibiotics. He was prescribed Bactrim and Keflex, however he reported only takes them sporadically, if at all. Daughter, who is th e patients POA confirmed this. She reports he underwent a head CT in [place] with no noted brain mets. She reports he lives alone in [place], however she has recently moved to [place] to be closer, and will be staying with him for the foreseeable future. She reports he was a daily drinker, but he stopped on 03/28/2020. In the ED patient is tachycardic at 127 bpm and tachypneic at 25 breaths/min. Saturations are 86% on room air. Placed on 2 L of oxygen which bring his saturations up to 96%. Blood pressure is 94/60. Per the ED note patient did visit with hospice however it appears he did not sign up with them. There is some [id number] as to whether or not the patient would like to be placed on comfort care or have a work-up for his symptoms. The patient really never does give a definitive answer and ultimately the decision is made to perform a work- up. Twelve-lead EKG is obtained showing sinus tachycardia at 126 bpm with right atrial enlargement. Labs are obtained with a WBC elevated at 20.03 and hemoglobin of 10.3. Neutrophils are elevated at 89% but there is no bandemia. Sodium is just slightly low at 135. Creatinine is 1.3 with a GFR of 55. Lactic acid is 0.5. Leukosis elevated at 165. Troponin is negative. Magnesium is low at 1.4. ABG is obtained in the left radial and is completely normal. UA is obtained and shows concentrated urine, 3+ blood, trace leukocyte esterase, greater than 100 RBCs, 10-20 WBCs, many bacteria, and moderate mucus. 20-30 squ amous epithelial cells are noted. SARS-CoV-2 screen is negative. He started on 1 g Rocephin and given 2 g magnesium for his hypomagnesemia. He is also given a fluid bolus of 30 mL/kg. Chest x-ray is obtained and interpreted by Dr. Harding as 4.5 cm left retrocardiac nodule. Nodular area of pneumonia or nodular mass is possible. Given right infusion port, and increasing mass is more likely. Ot her portion of the chest appear clear. 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 He does have a catheter in his right chest. He is a former smoker who quit in 2002. He is a DNR/DNI. His primary care provider is Dr. Vega and his oncologist is Dr. Rain. - Related Data Allergies/Adverse Reactions: Allergies Allergy/AdvReac Type Severity Reaction Status Date / Time codeine AdvReac Agitation Verified 04/15/20 18:50 Home Medications: Home Meds oxyCODONE 5 mg PO Q6H PRN 01/23/20 [History] Morphine Sulfate 15 mg PO BID 03/31/20 [History] Potassium Chloride 10 meq PO DAILY 03/31/20 [History] Sulfamethoxazole/Trimethoprim [Bactrim Ds Tablet] 1 each PO BID 04/15/20 [History] Tamsulosin HCl [Flomax] 0.4 mg PO DAILY 04/15/20 [History] cephALEXin [Keflex] 500 mg PO QID 04/15/20 [History] dexAMETHasone [Dexamethasone] 2 mg PO BID 04/15/20 [History] Past Medical History HEENT History: Reports: Impaired Vision (wears glasses) Other HEENT History: Wears glasses Cardiovascular History: Reports: Hypertension (untreated) Respiratory History: Reports: COPD (suspected, not tested) Other Respiratory History: Dx with copd 18 years ago Gastrointestinal History: Reports: GERD (untreated) Other Gastrointestinal History: Acid reflux Genitourinary History: Reports: Renal Calculus Other Genitourinary History: Kidney surgery in past. Pt. unsure on type. Musculoskeletal History: Reports: Back Pain, Chronic Neurological History: Reports: CVA (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 + tic disorder) Other Neuro History: Right sided stroke october 2018 Psychiatric History: Reports: Anxiety, Panic Attack Other Psychiatric History: Pt. states past panic attacks from pressure at work. Since retired and they have decreased. Hematologic History: Reports: Blood Transfusion(s) Oncologic (Cancer) History: Reports: Lung (stage IV, dx'd mid-November 2019, s/p 2 doses of CTx, untx'd since) Other Oncologic History: Family hx of lung cancer on both sides - Infectious Disease History Infectious Disease History: Reports: Chicken Pox - Past Surgical History Cardiovascular Surgical History: Reports: Other (See Below) (Right Port-A-Cath) GI Surgical History: Reports: Colonoscopy Male Surgical History: Reports: Kidney Stone Extraction (left) Oncologic Surgical History: Reports: Other (See Below) (Liver biopsy 12/10/2019) Social & Family History - Family History Family Medical History: Noncontributory Respiratory: Reports: COPD Oncologic: Reports: Liver, Lung - Tobacco Use Smoking Status *Q: Former Smoker Years of Tobacco use: 33 Packs/Tins Daily: 1.5 Used Tobacco, but Quit: Yes Month/Year Tobacco Last Used: Quit 2002 Second Hand Smoke Exposure: No - Caffeine Use Caffeine Use: Reports: None Caffeine Use Comment: occasionally - Alcohol Use Date of Last Drink: 12/24/19 - Recreational Drug Use Recreational Drug Use: No - Living Situation & Occupation Living situation: Reports: Single, Alone Occupation: Retired ([employer]) H&P Review of Systems - Review of Systems: Review Of Systems: See Below General: Reports: No Symptoms HEENT: Reports: No Symptoms Pulmonary: Reports: No Symptoms Cardiovascular: Reports: No Symptoms Gastrointestinal: Reports: No Symptoms Genitourinary: Reports: No Symptoms Musculoskeletal: Reports: No Symptoms Skin: Reports: No Symptoms Psychiatric: Reports: No Symptoms Neurological: Reports: No Symptoms Hematologic/Lymphatic: Reports: No Symptoms Immunologic: Reports: No Symptoms Exam - Exam Exam: See Below - Vital Signs Vital Signs: Last Vital Signs Temp 98.4 F 04/16/20 03:43 Pulse 89 04/16/20 03:43 Resp 20 04/16/20 03:43 BP 107/59 L 04/16/20 03:43 Pulse Ox 98 04/16/20 03:43 Weight: 137 lb 14.4 oz - Patient Data Lab Results Last 24 hrs: Laboratory Results - last 24 hr 04/15/20 04/15/20 04/15/20 Range/Units 19:05 19:05 19:05 WBC 20.03 H (4.23-9.07) K/mm3 RBC 3.52 L (4.63-6.08) M/mm3 Hgb 10.3 L D (13.7-17.5) gm/dl Hct 33.7 L (40.1-51.0) % MCV 95.7 H (79.0-92.2) fl MCH 29.3 (25.7-32.2) pg MCHC 30.6 L (32.2-35.5) g/dl RDW Std Deviation 48.3 H (35.1-43.9) fL Plt Count 248 (163-337) K/mm3 MPV 9.4 (9.4-12.3) fl Neutrophils % (Manual) 89 H (40-60) % Band Neutrophils % 0 (0-10) % Lymphocytes % (Manual) 6 L (20-40) % Atypical Lymphs % 0 % Monocytes % (Manual) 5 (2-10) % Eosinophils % (Manual) 0 L (0.8-7.0) % Basophils % (Manual) 0 L (0.2-1.2) Platelet Estimate Adequate RBC Morph Comment Normal Puncture Site ABG pH (7.35-7.45) ABG pCO2 (35.0-45.0) mmHg ABG pO2 (80.0-100.0) mmHg ABG HCO3 (22.0-26.0) meq/L ABG O2 Saturation (96.0-97.0) % ABG Base Excess (-2-2.0) A-a Gradient mmHg O2 Delivery Device Oxygen Flow Rate FiO2 (21.00-100.00) % Sodium 135 L (136-145) mEq/L Potassium 4.8 (3.5-5.1) mEq/L Chloride 99 (98-107) mEq/L Carbon Dioxide 30 (21-32) mEq/L Anion Gap 10.8 (5-15) BUN 19 H (7-18) mg/dL Creatinine 1.3 (0.7-1.3) mg/dL Est Cr Clr Drug Dosing 52.62 mL/min Estimated GFR (MDRD) 55 (>60) mL/min BUN/Creatinine Ratio 14.6 (14-18) Glucose 165 H (80-115) mg/dL Lactic Acid 0.8 (0.4-2.0) mmol/L Calcium 9.1 (8.5-10.1) mg/dL Magnesium 1.4 L (1.8-2.4) mg/dl Total Bilirubin 0.6 (0.2-1.0) mg/dL AST 21 (15-37) U/L ALT 55 (16-63) U/L Alkaline Phosphatase 450 H (46-116) U/L Troponin I < 0.017 (0.00-0.056) ng/mL Total Protein 6.4 (6.4-8.2) g/dl Albumin 1.7 L (3.4-5.0) g/dl Globulin 4.7 gm/dL Albumin/Globulin Ratio 0.4 L (1-2) Urine Color (Yellow) Urine Appearance (Clear) Urine pH (5.0-8.0) Ur Specific Etters (1.005-1.030) Urine Protein (Negative) Urine Glucose (UA) (Negative) Urine Ketones (Negative) Urine Occult Blood (Negative) Urine Nitrite (Negative) Urine Bilirubin (Negative) Urine Urobilinogen (0.2-1.0) Ur Leukocyte Esterase (Negative) Urine RBC (0-5) /hpf Urine WBC (0-5) /hpf Ur Squamous Epith Cells (0-5) /hpf Urine Bacteria (FEW) /hpf Urine Mucus (FEW) /hpf SARS-CoV-2 RNA (ARNOLD) (NEGATIVE) MRSA (PCR) 04/15/20 04/15/20 04/15/20 Range/Units 19:40 19:54 21:05 WBC (4.23-9.07) K/mm3 RBC (4.63-6.08) M/mm3 Hgb (13.7-17.5) gm/dl Hct (40.1-51.0) % MCV (79.0-92.2) fl MCH (25.7-32.2) pg MCHC (32.2-35.5) g/dl RDW Std Deviation (35.1-43.9) fL Plt Count (163-337) K/mm3 MPV (9.4-12.3) fl Neutrophils % (Manual) (40-60) % Band Neutrophils % (0-10) % Lymphocytes % (Manual) (20-40) % Atypical Lymphs % % Monocytes % (Manual) (2-10) % Eosinophils % (Manual) (0.8-7.0) % Basophils % (Manual) (0.2-1.2) Platelet Estimate RBC Morph Comment Puncture Site Lt radial ABG pH 7.39 (7.35-7.45) ABG pCO2 43.6 (35.0-45.0) mmHg ABG pO2 99.0 (80.0-100.0) mmHg ABG HCO3 26.0 (22.0-26.0) meq/L ABG O2 Saturation 96.3 (96.0-97.0) % ABG Base Excess 1.5 (-2-2.0) A-a Gradient 47 mmHg O2 Delivery Device Nasal cannula Oxygen Flow Rate 2.0 FiO2 28.00 (21.00-100.00) % Sodium (136-145) mEq/L Potassium (3.5-5.1) mEq/L Chloride (98-107) mEq/L Carbon Dioxide (21-32) mEq/L Anion Gap (5-15) BUN (7-18) mg/dL Creatinine (0.7-1.3) mg/dL Est Cr Clr Drug Dosing mL/min Estimated GFR (MDRD) (>60) mL/min BUN/Creatinine Ratio (14-18) Glucose (80-115) mg/dL Lactic Acid (0.4-2.0) mmol/L Calcium (8.5-10.1) mg/dL Magnesium (1.8-2.4) mg/dl Total Bilirubin (0.2-1.0) mg/dL AST (15-37) U/L ALT (16-63) U/L Alkaline Phosphatase (46-116) U/L Troponin I (0.00-0.056) ng/mL Total Protein (6.4-8.2) g/dl Albumin (3.4-5.0) g/dl Globulin gm/dL Albumin/Globulin Ratio (1-2) Urine Color Valeri H (Yellow) Urine Appearance Cloudy H (Clear) Urine pH 5.5 (5.0-8.0) Ur Specific Etters > or = 1.030 (1.005-1.030) Urine Protein 2+ H (Negative) Urine Glucose (UA) Negative (Negative) Urine Ketones Trace H (Negative) Urine Occult Blood 3+ H (Negative) Urine Nitrite Negative (Negative) Urine Bilirubin 2+ H (Negative) Urine Urobilinogen 2.0 H (0.2-1.0) Ur Leukocyte Esterase Trace H (Negative) Urine RBC >100 H (0-5) /hpf Urine WBC 10-20 H (0-5) /hpf Ur Squamous Epith Cells 20-30 H (0-5) /hpf Urine Bacteria Many H (FEW) /hpf Urine Mucus Moderate H (FEW) /hpf SARS-CoV-2 RNA (ARNOLD) Negative (NEGATIVE) MRSA (PCR) 04/16/20 04/16/20 Range/Units 01:55 06:05 WBC (4.23-9.07) K/mm3 RBC (4.63-6.08) M/mm3 Hgb (13.7-17.5) gm/dl Hct (40.1-51.0) % MCV (79.0-92.2) fl MCH (25.7-32.2) pg MCHC (32.2-35.5) g/dl RDW Std Deviation (35.1-43.9) fL Plt Count (163-337) K/mm3 MPV (9.4-12.3) fl Neutrophils % (Manual) (40-60) % Band Neutrophils % (0-10) % Lymphocytes % (Manual) (20-40) % Atypical Lymphs % % Monocytes % (Manual) (2-10) % Eosinophils % (Manual) (0.8-7.0) % Basophils % (Manual) (0.2-1.2) Platelet Estimate RBC Morph Comment Puncture Site ABG pH (7.35-7.45) ABG pCO2 (35.0-45.0) mmHg ABG pO2 (80.0-100.0) mmHg ABG HCO3 (22.0-26.0) meq/L ABG O2 Saturation (96.0-97.0) % ABG Base Excess (-2-2.0) A-a Gradient mmHg O2 Delivery Device Oxygen Flow Rate FiO2 (21.00-100.00) % Sodium 136 (136-145) mEq/L Potassium 4.4 (3.5-5.1) mEq/L Chloride 102 (98-107) mEq/L Carbon Dioxide 28 (21-32) mEq/L Anion Gap 10.4 (5-15) BUN 17 (7-18) mg/dL Creatinine 0.9 (0.7-1.3) mg/dL Est Cr Clr Drug Dosing 69.50 mL/min Estimated GFR (MDRD) > 60 (>60) mL/min BUN/Creatinine Ratio 18.9 H (14-18) Glucose 121 H (80-115) mg/dL Lactic Acid (0.4-2.0) mmol/L Calcium 9.2 (8.5-10.1) mg/dL Magnesium 2.2 (1.8-2.4) mg/dl Total Bilirubin 0.4 (0.2-1.0) mg/dL AST 28 (15-37) U/L ALT 47 (16-63) U/L Alkaline Phosphatase 371 H (46-116) U/L Troponin I (0.00-0.056) ng/mL Total Protein 6.0 L (6.4-8.2) g/dl Albumin 1.5 L (3.4-5.0) g/dl Globulin 4.5 gm/dL Albumin/Globulin Ratio 0.3 L (1-2) Urine Color (Yellow) Urine Appearance (Clear) Urine pH (5.0-8.0) Ur Specific Etters (1.005-1.030) Urine Protein (Negative) Urine Glucose (UA) (Negative) Urine Ketones (Negative) Urine Occult Blood (Negative) Urine Nitrite (Negative) Urine Bilirubin (Negative) Urine Urobilinogen (0.2-1.0) Ur Leukocyte Esterase (Negative) Urine RBC (0-5) /hpf Urine WBC (0-5) /hpf Ur Squamous Epith Cells (0-5) /hpf Urine Bacteria (FEW) /hpf Urine Mucus (FEW) /hpf SARS-CoV-2 RNA (ARNOLD) (NEGATIVE) MRSA (PCR) Negative Result Diagrams: 04/15/20 19:05 04/16/20 06:05 Ez Results Last 24 hrs: Microbiology 04/15/20 19:50 Anaerobic Blood Culture - Final Blood - Venous - Lab Draw Sepsis Event Note - Evaluation Sepsis Screening Result: Possible Severe Sepsis Risk - Focused Exam Vital Signs: Vital Signs Temp Temp Pulse Pulse Resp BP BP 04/16/20 03:43 98.4 F 89 20 107/59 L 04/16/20 00:44 98.8 F 88 20 111/67 04/15/20 21:15 98.5 F 105 H 16 97/62 04/15/20 21:00 94/53 L 04/15/20 20:45 96/71 Pulse Ox 04/16/20 03:43 98 04/16/20 00:44 97 04/15/20 21:15 98 04/15/20 21:00 04/15/20 20:45 - Problem List (1) Hypomagnesemia SNOMED Code(s): 529835674 ICD Code: E83.42 - HYPOMAGNESEMIA Status: Resolved Priority: High Current Visit: Yes (2) Metastatic lung cancer (metastasis from lung to other site) SNOMED Code(s): 63746830, 302064232 ICD Code: C34.90 - MALIGNANT NEOPLASM OF UNSP PART OF UNSP BRONCHUS OR LUNG Status: Chronic Priority: High Current Visit: Yes Qualifiers: Laterality: left Qualified Code(s): C34.92 - Malignant neoplasm of unspecified part of left bronchus or lung (3) UTI (urinary tract infection) SNOMED Code(s): 19243140 ICD Code: N39.0 - URINARY TRACT INFECTION, SITE NOT SPECIFIED Status: Acute Priority: High Current Visit: Yes Qualifiers: Urinary tract infection type: acute cystitis Hematuria presence: with hematuria Qualified Code(s): N30.01 - Acute cystitis with hematuria (4) Ex-smoker SNOMED Code(s): 8157578 ICD Code: Z87.891 - PERSONAL HISTORY OF NICOTINE DEPENDENCE Status: Chronic Priority: Medium Current Visit: No (5) Generalized weakness SNOMED Code(s): 85850964 ICD Code: R53.1 - WEAKNESS Status: Chronic Priority: Low Current Visit: No (6) Hypertension SNOMED Code(s): 07702805 ICD Code: I10 - ESSENTIAL (PRIMARY) HYPERTENSION Status: Chronic Priority: Medium Current Visit: No Qualifiers: Hypertension type: unspecified Qualified Code(s): I10 - Essential (primary) hypertension (7) GERD (gastroesophageal reflux disease) SNOMED Code(s): 107991261 ICD Code: K21.9 - GASTRO-ESOPHAGEAL REFLUX DISEASE WITHOUT ESOPHAGITIS Status: Chronic Priority: Low Current Visit: No Qualifiers: Esophagitis presence: esophagitis presence not specified Qualified Code(s): K21.9 - Gastro-esophageal reflux disease without esophagitis (8) History of CVA (cerebrovascular accident) SNOMED Code(s): 484142903 ICD Code: Z86.73 - PRSNL HX OF TIA (TIA), AND CEREB INFRC W/O RESID DEFICITS Status: Chronic Priority: Medium Current Visit: Yes (9) Anxiety SNOMED Code(s): 35493608 ICD Code: F41.9 - ANXIETY DISORDER, UNSPECIFIED Status: Chronic Priority: Low Current Visit: No (10) Panic attacks SNOMED Code(s): 425399166 ICD Code: F41.0 - PANIC DISORDER [EPISODIC PAROXYSMAL ANXIETY] Status: Chronic Priority: Low Current Visit: No (11) COPD (chronic obstructive pulmonary disease) SNOMED Code(s): 14614416 ICD Code: J44.9 - CHRONIC OBSTRUCTIVE PULMONARY DISEASE, UNSPECIFIED Status: Suspected Priority: Medium Current Visit: No Qualifiers: COPD type: unspecified COPD Qualified Code(s): J44.9 - Chronic obstructive pulmonary disease, unspecified (12) Metastatic carcinoma to liver SNOMED Code(s): 82803766, 744809570 ICD Code: C78.7 - SECONDARY MALIG NEOPLASM OF LIVER AND INTRAHEPATIC BILE DUCT Status: Acute Priority: Medium Current Visit: No (13) Primary lung cancer SNOMED Code(s): 89669775 ICD Code: C34.90 - MALIGNANT NEOPLASM OF UNSP PART OF UNSP BRONCHUS OR LUNG Status: Chronic Priority: High Current Visit: Yes Qualifiers: Laterality: left Qualified Code(s): C34.92 - Malignant neoplasm of unspecified part of left bronchus or lung (14) Acute febrile illness SNOMED Code(s): 967742431 ICD Code: R50.9 - FEVER, UNSPECIFIED Status: Acute Priority: Medium Current Visit: No (15) Physical deconditioning SNOMED Code(s): 49901086373157 ICD Code: R53.81 - OTHER MALAISE Status: Chronic Priority: Medium Current Visit: Yes (16) Hypoalbuminemia SNOMED Code(s): 258511610 ICD Code: E88.09 - OTH DISORDERS OF PLASMA-PROTEIN METABOLISM, NEC Status: Chronic Priority: Medium Current Visit: Yes (17) Malnutrition SNOMED Code(s): 82609575 ICD Code: E46 - UNSPECIFIED PROTEIN-CALORIE MALNUTRITION Status: Acute Priority: Medium Current Visit: Yes Qualifiers: Malnutrition type: protein-calorie malnutrition Protein-calorie malnutrition severity: mild Qualified Code(s): E44.1 - Mild protein-calorie malnutrition (18) EtOH dependence SNOMED Code(s): 99616930 ICD Code: F10.20 - ALCOHOL DEPENDENCE, UNCOMPLICATED Status: Chronic Priority: Medium Current Visit: No Qualifiers: Substance use status: in remission Qualified Code(s): F10.21 - Alcohol dependence, in remission Problem List Initiated/Reviewed/Updated: Yes Orders Last 24hrs: Active Orders 24 hr Category Date Time Status Patient Status [ADT] Routine ADT 04/15/20 23:57 Active Insert Urinary Catheter [OM.PC] Stat Care 04/15/20 21:05 Ordered Oxygen Therapy Adult [Oxygen Therapy] [RC] ASDIRECTED Care 04/16/20 01:30 Active Urinary Catheter Assessment [RC] ASDIRECTED Care 04/15/20 21:28 Active Regular Diet [DIET] Diet 04/16/20 Breakfast Active CBC W/O DIFF,HEMOGRAM [HEME] Routine Lab 04/16/20 06:05 Received CULTURE BLOOD [BC] Stat Lab 04/15/20 19:40 Received CULTURE BLOOD [BC] Stat Lab 04/15/20 19:50 Results CULTURE URINE [RM] Stat Lab 04/15/20 21:05 Received Sodium Chloride 0.9% [Normal Saline] 1,000 ml Med 04/16/20 01:30 Active IV ASDIRECTED Sodium Chloride 0.9% [Saline Flush] Med 04/15/20 19:23 Active 10 ml FLUSH ASDIRECTED PRN Blood Culture x2 Reflex Set [OM.PC] Stat Oth 04/15/20 19:23 Ordered Saline Lock Insert [OM.PC] Stat Ot 04/15/20 19:23 Ordered Code Status [Resuscitation Status] Routine Resus Stat 04/16/20 01:25 Ordered Medication Orders Sodium Chloride (Normal Saline) 1,000 mls @ 100 mls/hr IV ASDIRECTED [facility] Last Admin: 04/16/20 03:58 Dose: 100 mls/hr Documented by: LANETTE Sodium Chloride (Saline Flush) 10 ml FLUSH ASDIRECTED PRN PRN Reason: Keep Vein Open Last Admin: 04/15/20 19:49 Dose: 10 ml Documented by: CELI Assessment/Plan Comment:: Admission Assesssment: 04/16/20: -Admitted to floor observation status on 04/15/20 with UTI -History of stage IV lung cancer with mets to liver and hip -Underwent chemotherapy in December 2019 but stopped due to side effects. Has not restarted chemotherapy -Underwent radiation to hip for mets -Port-a-cath in right chest -Noted to be tachycardic, tachypneic, and hypoxemic in ED. -UA in ED: Concentrated urine, Negative nitrite, trace leukocyte esterase, >100RBC, 10-20 WBC, 20-30 squamous epith cells, many bacteria -Given IV fluid bolus in ED -Started on Rocephin 1gm in ED -Blood cultures obtained -Urine cultures obtained -Labs: * WBC 20.03 * Hgb 10.3 * Plt count 248 * Neutrophils 89% * No bandemia * Sodium 135 * Potassium 4.8 * Creatinine 1.3 * GFR 55 * Lactic acid 0.8 * Magnesium 1.4 * Troponin <0.017 * Albumin 1.7 * ABG: pH 7.39, pCO2 43.6, pO2 99.0, HCO3 26.0, O2 saturation 96.3, Base excess 1.5, Obtained on 2L O2 -Sepsis criteria: UTI, Tachycardia, Leukocytosis, Tachypnea; No organ dysfunction * Does not meet sepsis criteria -Last BM 04/14/20 -Admitted to M/S/P on observation status UTI (urinary tract infection) Acute febrile illness Generalized weakness -Continue 1gm Rocephin -IV fluids as ordered -PT/OT -Tylenol for fever -Await urine culture -Await blood cultures -Obtain admission procalcitonin and Q48H thereafter -Continue home Flomax Metastatic lung cancer (metastasis from lung to other site) COPD (chronic obstructive pulmonary disease) Ex-smoker Metastatic carcinoma to liver Primary lung cancer Physical deconditioning Malnutrition Hypoalbuminemia History of ETOH abuse -[employer] 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 Supervisor consult -PT/OT -CM/SW for discharge planning -Hospice consult ordered after discussion with patients daughter/POA -Continue home dexamethasone taper Hypertension -Chronic and untreated -No concerns currently -Monitor BP and medicate as needed GERD (gastroesophageal reflux disease) -Chronic and untreated -No concerns currently -Monitor need for medication History of CVA (cerebrovascular accident) -No acute concerns -Consult PT/OT -Consult CM/SW Anxiety Panic attacks -Chronic and untreated -No concerns currently -Monitor and treat as needed Hypomagnesemia -Supplemented in ED -Monitor labs Code status: DNR/DNI PCP: Dr. Vega Oncology: Dr. Rain Social: Patient lives alone in [place], although his daughter has been staying with him the past few days. He reports he has been getting by with help from friends in the community. Disposition: Patient admitted to M/S/P observation status for IV antibiotics for UTI and PT/OT evaluation. CM/SW consulted for assistance and possible hospice consult. Upgraded to inpatient today. Prognosis: Poor overall prognosis given patients significant metastatic disease. - Mortality Measure Prognosis:: Poor
[2020-04-16] MEDS ORDERED: Acetaminophen 325 MG Tab PO PRN (07:22)
[2020-04-16] MEDS ORDERED: MORPHINE SULFATE 15 MG PO SCH (09:00)
[2020-04-16] MEDS: Folic Acid 1 MG Tab PO SCH (11:53)
[2020-04-16] MEDS: Tamsulosin 0.4 MG Cap.ER PO SCH (11:53)
[2020-04-16] MEDS: Dexamethasone 4 MG Tab PO SCH ×2 (11:54→20:53)
[2020-04-16] MEDS: Enoxaparin 40 MG/0.4 ML Syringe SUBCUT SCH (14:06)
[2020-04-16] MEDS ORDERED: Morphine 2 MG/ML SYRINGE IVPUSH PRN (14:33)
[2020-04-16] MEDS ORDERED: fentaNYL 25 MCG/HR Transdermal Patch TRDERM SCH (15:00)
[2020-04-16] MEDS: Sennosides 8.6 MG Tab PO SCH (20:53)
[2020-04-16] MEDS ORDERED: Thiamine 100 MG Tab PO SCH (21:00)
[2020-04-16] MEDS ORDERED: cefTRIAXone 1 GM in Sodium Chloride 0.9% 100 ML IV SCH (23:15)
[2020-04-17] MEDS: Sennosides 8.6 MG Tab PO SCH (09:35)
[2020-04-17] MEDS: Tamsulosin 0.4 MG Cap.ER PO SCH (09:35)
[2020-04-17] MEDS: Enoxaparin 40 MG/0.4 ML Syringe SUBCUT SCH (09:35)
[2020-04-17] MEDS: Folic Acid 1 MG Tab PO SCH (09:36)
[2020-04-17] MEDS: Dexamethasone 4 MG Tab PO SCH (09:36)
--- NOTE | 2020-04-17 10:22 | PCM.DCSUM1 ---
Discharge Summary - Hospital Course HPI Initial Comments: This is a 70-year-old male who presented to ED on 04/15/2020 with increased weakness, fever, altered mental status, and confusion. He does carry history of stage IV lung cancer which was diagnosed after a work-up for rib pain. CT scan found a spiculated lesion and mets. Liver biopsy was performed on and confirms the diagnosis. Per the ED note patient received chemotherapy on 12/26/2019 and 01/02/2020 but discontinued it due to side effects. He has not had any chemotherapy since although he has had some radiation to his hip due to metastasis. Medical records show the patient was in the ED on 03/31/2020. Blood cultures from that visit grew out Propionibacterium acnes in 1 anaerobic bottle and the 3 other bottles remain negative. He was admitted at [facility], after his oncology team told him to go to the ED there. They felt this was likely contaminant but he was given antibiotics. He was prescribed Bactrim and Keflex, however he reported only takes them sporadically, if at all. Daughter, who is the patients POA confirmed this. She reports he underwent a head CT in [place] with no noted brain mets. She reports he lives alone in [place], however she has recently moved to [place] to be closer, and will be staying with him for the foreseeable future. She reports he was a daily drinker, but he stopped on 03/28/2020. In the ED patient is tachycardic at 127 bpm and tachypneic at 25 breaths/min. Saturations are 86% on room air. Placed on 2 L of oxygen which bring his saturations up to 96%. Blood pressure is 94/60. Per the ED note patient did visit with hospice however it appears he did not sign up with them. There is some [id number] as to whether or not the patient would like to be placed on comfort care or have a work-up for his symptoms. The patient really never does give a definitive answer and ultimately the decision is made to perform a work- up. Twelve-lead EKG is obtained showing sinus tachycardia at 126 bpm with right atrial enlargement. Labs are obtained with a WBC elevated at 20.03 and hemoglobin of 10.3. Neutrophils are elevated at 89% but there is no bandemia. Sodium is just slightly low at 135. Creatinine is 1.3 with a GFR of 55. Lactic acid is 0.5. Leukosis elevated at 165. Troponin is negative. Magnesium is low at 1.4. ABG is obtained in the left radial and is completely normal. UA is obtained and shows concentrated urine, 3+ blood, trace leukocyte esterase, great er than 100 RBCs, 10-20 WBCs, many bacteria, and moderate mucus. 20-30 squamous epithelial cells are noted. SARS-CoV-2 screen is negative. He started on 1 g Rocephin and given 2 g magnesium for his hypomagnesemia. He is also given a fluid bolus of 30 mL/kg. Chest x-ray is obtained and interpreted by Dr. aHrding as 4.5 cm left retrocardiac nodule. Nodular area of pneumonia or nodular mass is possible. Given right infusion port, and increasing mass is more likely. Other portion of the chest appear clear. 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 He does have a catheter in his right chest. He is a former smoker who quit in 2002. He is a DNR/DNI. His primary care provider is Dr. Vega and his oncologist is Dr. Rain. Diagnosis: Stroke: No - Discharge Data Discharge Date: 04/17/20 (Admit date: 04/16/20) Discharge Disposition: DC/Tfer to Other Condition: Stable - Referral to Home Health Primary Care Physician: Rufino Vega Jr, MD - Discharge Diagnosis/Problem(s) (1) Hypomagnesemia SNOMED Code(s): 695124537 ICD Code: E83.42 - HYPOMAGNESEMIA Status: Resolved Priority: High Cu rrent Visit: Yes (2) Metastatic lung cancer (metastasis from lung to other site) SNOMED Code(s): 61504716, 605739220 ICD Code: C34.90 - MALIGNANT NEOPLASM OF UNSP PART OF UNSP BRONCHUS OR LUNG Status: Chronic Priority: High Current Visit: Yes Qualifiers: Laterality: left Qualified Code(s): C34.92 - Malignant neoplasm of unspecified part of left bronchus or lung (3) UTI (urinary tract infection) SNOMED Code(s): 84653076 ICD Code: N39.0 - URINARY TRACT INFECTION, SITE NOT SPECIFIED Status: Acute Priority: High Current Visit: Yes Qualifiers: Urinary tract infection type: acute cystitis Hematuria presence: with hematuria Qualified Code(s): N30.01 - Acute cystitis with hematuria (4) Ex-smoker SNOMED Code(s): 9224892 ICD Code: Z87.891 - PERSONAL HISTORY OF NICOTINE DEPENDENCE Status: Chronic Priority: Medium Current Visit: No (5) Generalized weakness SNOMED Code(s): 57480776 ICD Code: R53.1 - WEAKNESS Status: Chronic Priority: Low Current Visit: No (6) Hypertension SNOMED Code(s): 95393633 ICD Code: I10 - ESSENTIAL (PRIMARY) HYPERTENSION Status: Chronic Priority: Medium Current Visit: No Qualifiers: Hypertension type: unspecified Qualified Code(s): I10 - Essential (primary) hypertension (7) GERD (gastroesophageal reflux disease) SNOMED Code(s): 193109650 ICD Code: K21.9 - GASTRO-ESOPHAGEAL REFLUX DISEASE WITHOUT ESOPHAGITIS Stat us: Chronic Priority: Low Current Visit: No Qualifiers: Esophagitis presence: esophagitis presence not specified Qualified Code(s): K21.9 - Gastro-esophageal reflux disease without esophagitis (8) History of CVA (cerebrovascular accident) SNOMED Code(s): 147945426 ICD Code: Z86.73 - PRSNL HX OF TIA (TIA), AND CEREB INFRC W/O RESID DEFICITS Status: Chronic Priority: Medium Current Visit: Yes (9) Anxiety SNOMED Code(s): 20029409 ICD Code: F41.9 - ANXIETY DISORDER, UNSPECIFIED Status: Chronic Priority: Low Current Visit: No (10) Panic attacks SNOMED Code(s): 891086502 ICD Code: F41.0 - PANIC DISORDER [EPISODIC PAROXYSMAL ANXIETY] Status: Chronic Priority: Low Current Visit: No (11) COPD (chronic obstructive pulmonary disease) SNOMED Code(s): 25330553 ICD Code: J44.9 - CHRONIC OBSTRUCTIVE PULMONARY DISEASE, UNSPECIFIED Status: Suspected Priority: Medium Current Visit: No Qualifiers: COPD type: unspecified COPD Qualified Code(s): J44.9 - Chronic obstructive pulmonary disease, unspecified (12) Metastatic carcinoma to liver SNOMED Code(s): 99988957, 808559394 ICD Code: C78.7 - SECONDARY MALIG NEOPLASM OF LIVER AND INTRAHEPATIC BILE DUCT Status: Acute Priority: Medium Current Visit: No (13) Primary lung cancer SNOMED Code(s): 24816681 ICD Code: C34.90 - MALIGNANT NEOPLASM OF UNSP PART OF UNSP BRONCHUS OR LUNG Status: Chronic Priority: High Current Visit: Yes Qualifiers: Laterality: left Qualified Code(s): C34.92 - Malignant neoplasm of unspecified part of left bronchus or lung (14) Acute febrile illness SNOMED Code(s): 441641931 ICD Code: R50.9 - FEVER, UNSPECIFIED Status: Acute Priority: Medium Current Visit: No (15) Physical deconditioning SNOMED Code(s): 37839085633381 ICD Code: R53.81 - OTHER MALAISE Status: Chronic Priority: Medium Cu rrent Visit: Yes (16) Hypoalbuminemia SNOMED Code(s): 053280730 ICD Code: E88.09 - OTH DISORDERS OF PLASMA-PROTEIN METABOLISM, NEC Status: Chronic Priority: Medium Current Visit: Yes (17) Malnutrition SNOMED Code(s): 75566560 ICD Code: E46 - UNSPECIFIED PROTEIN-CALORIE MALNUTRITION Status: Acute Priority: Medium Current Visit: Yes Qualifiers: Malnutrition type: protein-calorie malnutrition Protein-calorie malnutrition severity: mild Qualified Code(s): E44.1 - Mild protein-calorie malnutrition (18) EtOH dependence SNOMED Code(s): 07889239 ICD Code: F10.20 - ALCOHOL DEPENDENCE, UNCOMPLICATED Status: Chronic Priority: Medium Current Visit: No Qualifiers: Substance use status: in remission Qualified Code(s): F10.21 - Alcohol dependence, in remission (19) Transition from acute care to hospice SNOMED Code(s): 3442272700072, 1931047448332 ICD Code: RCU9926 - Status: Acute Priority: High Current Visit: Yes - Patient Summary/Data Consults: Consultations 04/16/20 07:22 Consult to Spiritual Care [CONS] Routine OT Evaluation and Treatment [CONS] Routine PT Evaluation and Treatment [CONS] Routine 04/16/20 07:31 Consult to Case Management/Paving Inspector [CONS] Routine 04/16/20 08:12 Consult to Gunner'S Mate G [CONS] Routine 04/16/20 09:56 Consult to Hospice [CONS] Routine Labs Pending at D/C: Blood cultures negative x1 day Urine cultures growing normal [place] x1 day Recommended Follow-up Testing/Procedures: Follow-up with hospice as directed. Hospital Course: Mani was admitted to our facility on 04/16/2020 with a suspected UTI. He was initially admitted observation status but given his comorbidities and likely need for continued IV antibiotics he was upgraded to inpatient. He does carry a significant history for cancer with a primary source being his lung. It has since metastasized to his liver, spine, and hip. Of note he was recently hospitalized in [place] from 04/06/2020 to 04/11/2020. He had been seen prior in [place] and had a positive blood culture as noted in the admission HPI. Per the [place] notes they believe this is contaminant, however infectious disease recommended patient continue 10 days of oral antibiotics. He was discharged on Linezolid and hospice care was recommended. Patient's daughter reports that Linezolid was very expensive and after complaining, he was switched to Bactrim and Keflex p.o. Daughter reports patient has been taking this sporadically. During admission goals of care and overall prognosis were discussed with the patient and his daughter, who happens to be listed as his power of claims attorney. Both agreed to a hospice consult and this was placed. Patient reported that he will no longer receive any chemo or radiation for his cancer and that he would like to go home. Discussed risks and benefits of staying versus leaving with patient and he ultimately agreed to spend 1 night while we sorted out what was going on with his urine. Blood cultures were negative x1 day. Urine cultures have returned normal [place] x1 day. Discussed this with patient and daughter. We discussed how his symptoms are likely a sign of worsening cancer and again, this will be terminal given the significance of his cancer. He has been requiring oxygen while here and was qualified for 1.5 L. Both patient and his POA daughter agree to hospice at discharge and they will be admitting the patient tomorrow. They are in the works of getting a hospital bed for the patient's house. We did discuss how this would mean that he will not be returning to the hospital for any more treatment and he is in agreement to this. Antibiotics were discontinued. He was receiving a lidocaine patch while here as the daughter reported that he did not like his pain medications at home because they made him sleepy. In further discussion with the patient he reports that he did indeed like his pain medications at home and that they were very effective in controlling his pain. Because of this home medications will be continued, with the exception of his prior PO antibiotics. No new medications at discharge. Recommend patient follow-up with hospice as scheduled. - Patient Instructions Diet: Usual Diet as Tolerated Activity: As Tolerated Driving: Do Not Drive Showering/Bathing: May Shower Notify Provider of: Fever, Increased Pain, Nausea and/or Vomiting Other/Special Instructions: Follow-up with primary care provider/hospice as needed. Resume home medications as directed. We discussed your pain medications and you indicated you liked your current regimine. We will continue this and hospice may make adjustments as needed. Recommend you pursue hospice at discharge as we discussed. Your urine and blood returned with no signs of infection. It appears your symptoms are cancer related. Therefore no antibiotic is needed. You were qualified for 1.5L of oxygen at home. Continue to wear this as directed. - Discharge Plan *PRESCRIPTION DRUG MONITORING PROGRAM REVIEWED*: Not Applicable *COPY OF PRESCRIPTION DRUG MONITORING REPORT IN PATIENT ESTELA: Not Applicable Home Medications: Home Meds oxyCODONE 5 mg PO Q6H PRN 01/23/20 [History] Morphine Sulfate 15 mg PO BID 03/31/20 [History] Potassium Chloride 10 meq PO DAILY 03/31/20 [History] Tamsulosin HCl [Flomax] 0.4 mg PO DAILY 04/15/20 [History] dexAMETHasone [Dexamethasone] 2 mg PO BID 04/15/20 [History] Oxygen Therapy Mode: Nasal Cannula Oxygen Flow Rate (L/min): 1.5 Patient Handouts: and Dying, Sepsis, Diagnosis, Adult, End-of-Life Care Forms: ED Department Discharge Referrals: Rufino Vega Jr, MD [Primary Care Provider] - Shaw Rain MD [Ordering Only Provider] - - Discharge Summary/Plan Comment DC Time >30 min.: Yes (45 mins ) - General Info Date of Service: 04/17/20 Admission Dx/Problem (Free Text: Admission Diagnosis/Problem Admission Diagnosis/Problem Hypotension Functional Status: Reports: Pain Controlled, Tolerating Diet, Ambulating, Urinating. Denies: New Symptoms - Review of Systems General: Reports: Weakness, Fatigue, Malaise. Denies: Fever, Chills HEENT: Reports: No Symptoms. Denies: Headaches, Sore Throat Pulmonary: Reports: Shortness of Breath, Wheezing. Denies: Pleuritic Chest Pain, Cough, Sputum Cardiovascular: Reports: Chest Pain (along right lower ribs with movement ), Dyspnea on Exertion. Denies: Palpitations, Orthopnea, Edema, Lightheadedness Gastrointestinal: Reports: No Symptoms. Denies: Abdominal Pain, Constipation, Diarrhea, Nausea, Vomiting Genitourinary: Reports: No Symptoms. Denies: Pain Skin: Reports: No Symptoms. Denies: Cyanosis Neurological: Reports: Difficulty Walking, Weakness, Gait Disturbance. Denies: Confusion, Dizziness, Headache, Pre-Existing Deficit, Trouble Speaking, Change in Speech Psychiatric: Reports: No Symptoms - Patient Data Vitals - Most Recent: Last Vital Signs Temp 97.0 F 04/17/20 08:15 Pulse 77 04/17/20 08:15 Resp 20 04/17/20 08:15 BP 118/83 04/17/20 08:15 Pulse Ox 100 04/17/20 08:15 Weight - Most Recent: 136 lb 8 oz I&O - Last 24 hours: Intake & Output 04/16/20 04/17/20 04/17/20 22:59 06:59 14:59 Intake Total 1643 1495 Output Total 1050 Balance 593 1495 Lab Results - Last 24 hrs: Laboratory Results - last 24 hr 04/16/20 04/17/20 04/17/20 Range/Units 07:30 07:06 07:06 WBC 16.44 H (4.23-9.07) K/mm3 RBC 3.15 L (4.63-6.08) M/mm3 Hgb 9.1 L (13.7-17.5) gm/dl Hct 30.6 L (40.1-51.0) % MCV 97.1 H (79.0-92.2) fl MCH 28.9 (25.7-32.2) pg MCHC 29.7 L (32.2-35.5) g/dl RDW Std Deviation 48.0 H (35.1-43.9) fL Plt Count 209 (163-337) K/mm3 MPV 9.4 (9.4-12.3) fl Neut % (Auto) 93.0 H (34.0-67.9) % Lymph % (Auto) 2.7 L (21.8-53.1) % Calvert % (Auto) 3.7 L (5.3-12.2) % Eos % (Auto) 0.1 L (0.8-7.0) Baso % (Auto) 0.1 (0.1-1.2) % Neut # (Auto) 15.30 H (1.78-5.38) K/mm3 Lymph # (Auto) 0.45 L (1.32-3.57) K/mm3 [place]vert # (Auto) 0.61 (0.30-0.82) K/mm3 Eos # (Auto) 0.01 L (0.04-0.54) K/mm3 Baso # (Auto) 0.01 (0.01-0.08) K/mm3 Manual Slide Review Abnormal smear Sodium 138 (136-145) mEq/L Potassium 4.3 (3.5-5.1) mEq/L Chloride 103 (98-107) mEq/L Carbon Dioxide 28 (21-32) mEq/L Anion Gap 11.3 (5-15) BUN 16 (7-18) mg/dL Creatinine 0.6 L (0.7-1.3) mg/dL Est Cr Clr Drug Dosing 103.19 mL/min Estimated GFR (MDRD) > 60 (>60) mL/min BUN/Creatinine Ratio 26.7 H (14-18) Glucose 199 H (80-115) mg/dL Calcium 9.9 (8.5-10.1) mg/dL Phosphorus 3.6 (2.6-4.7) mg/dL Magnesium 1.9 (1.8-2.4) mg/dl Procalcitonin 2.76 H (<0.10) ng/mL DARRIUS Results - Last 24 hrs: Microbiology 04/15/20 19:50 Aerobic Blood Culture - Preliminary Blood - Venous - Lab Draw NO GROWTH AFTER 1 DAY Anaerobic Blood Culture - Final 04/15/20 19:40 Aerobic Blood Culture - Preliminary Blood - Venous NO GROWTH AFTER 1 DAY Anaerobic Blood Culture - Preliminary NO GROWTH AFTER 1 DAY Med Orders - Current: Current Medications Acetaminophen (Tylenol) 650 mg PO Q4H PRN PRN Reason: Pain (Mild 1-3)/fever Dexamethasone (Dexamethasone) 2 mg PO BID SIS Last Admin: 04/17/20 09:36 Dose: 2 mg Documented by: Enoxaparin Sodium (Lovenox) 40 mg SUBCUT DAILY [facility] Last Admin: 04/17/20 09:35 Dose: 40 mg Documented by: Fentanyl (Duragesic) 25 mcg TRDERM Q72H [facility] Last Admin: 04/16/20 15:24 Dose: 25 mcg Documented by: Folic Acid (Folic Acid) 1 mg PO DAILY [facility] Last Admin: 04/17/20 09:36 Dose: 1 mg Documented by: Ceftriaxone Sodium 1 gm/ (Sodium Chloride) 100 mls @ 200 mls/hr IV Q24H [facility] Last Admin: 04/16/20 23:19 Dose: 200 mls/hr Documented by: Miscellaneous Information (Remove Patch) 0 ea TRDERM Q72H [facility] Morphine Sulfate (Morphine) 2 mg IVPUSH Q4H PRN PRN Reason: Breakthrough Pain Senna (Senna) 17.2 mg PO BID [facility] Last Admin: 04/17/20 09:35 Dose: 17.2 mg Documented by: Sodium Chloride (Saline Flush) 10 ml FLUSH ASDIRECTED PRN PRN Reason: Keep Vein Open Last Admin: 04/15/20 19:49 Dose: 10 ml Documented by: Tamsulosin HCl (Flomax) 0.4 mg PO DAILY [facility] Last Admin: 04/17/20 09:35 Dose: 0.4 mg Documented by: Thiamine HCl (Vitamin B-1) 100 mg PO BEDTIME [facility] Last Admin: 04/16/20 20:53 Dose: 100 mg Documented by: Discontinued Medications Sodium Chloride (Normal Saline) 2,175 mls @ 999 mls/hr IV BOLUS ONE; Protocol Stop: 04/15/20 21:33 Last Admin: 04/15/20 21:19 Dose: 150 mls/hr Documented by: Sodium Chloride (Normal Saline) Confirm Administered Dose 1,000 mls @ as directed .ROUTE .STK-MED ONE Stop: 04/15/20 20:54 Last Admin: 04/15/20 21:19 Dose: Not Given Documented by: Ceftriaxone Sodium 1 gm/ (Sodium Chloride) 100 mls @ 200 mls/hr IV ONETIME STA Stop: 04/15/20 23:44 Last Admin: 04/15/20 23:25 Dose: 200 mls/hr Documented by: Sodium Chloride (Normal Saline) 1,000 mls @ 100 mls/hr IV ASDIRECTED [facility] Last Admin: 04/16/20 23:59 Dose: 100 mls/hr Documented by: Magnesium Sulfate (Magnesium Sulfate In Water Premix) 2 gm IV ONETIME STA Stop: 04/15/20 20:57 Last Admin: 04/15/20 21:23 Dose: 2 gm Documented by: Non-Formulary Medication (Morphine Sulfate [Morphine Sulfate]) 15 mg PO BID [facility] Last Admin: 04/16/20 11:20 Dose: Not Given Documented by: - Exam Quality Assessment: Reports: Supplemental Oxygen, DVT Prophylaxis General: Reports: Alert, Oriented, Cooperative, No Acute Distress, Other (appears comfortable) HEENT: Reports: Pupils Equal, Pupils Reactive, Mucous Membr. Moist/Fonda Lungs: Reports: Normal Respiratory Effort, Decreased Breath Sounds, Wheezing Cardiovascular: Reports: Regular Rate, Regular Rhythm GI/Abdominal Exam: Normal Bowel Sounds, Soft, Non-Tender, No Distention (Male) Exam: Deferred Rectal (Males) Exam: Deferred Back Exam: Reports: Normal Inspection, Full Range of Motion Extremities: Normal Inspection, Normal Range of Motion, Non-Tender, No Pedal Edema Skin: Reports: Warm, Intact Neurological: Reports: No New Focal Deficit Psy/Mental Status: Reports: Alert
== END 2020-04-17 13:10 | disposition other institution (70) | DRG 690 ==
LOC: JD.ED 18:40 → JD.MS 23:57 → OBSVTOIN 04-16 10:10
PROVIDERS: ADMIT Family Medicine; ATTEND Family Medicine
DX: N30.01 Acute cystitis with hematuria (principal); C34.92 Malignant neoplasm of unspecified part of left bronchus or lung; C34.90 Malignant neoplasm of unspecified part of unspecified bronchus or lung; C79.9 Secondary malignant neoplasm of unspecified site; C78.7 Secondary malignant neoplasm of liver and intrahepatic bile duct; E44.1 Mild protein-calorie malnutrition; C79.89 Secondary malignant neoplasm of other specified sites; I10 Essential (primary) hypertension; C79.51 Secondary malignant neoplasm of bone; Z86.73 Personal history of transient ischemic attack (TIA), and cerebral infarction without residual deficits; F41.9 Anxiety disorder, unspecified; I69.354 Hemiplegia and hemiparesis following cerebral infarction affecting left non-dominant side; Z66 Do not resuscitate; Z20.828 Contact with and (suspected) exposure to other viral communicable diseases; E88.09 Other disorders of plasma-protein metabolism, not elsewhere classified; E83.42 Hypomagnesemia; Z51.5 Encounter for palliative care; R53.1 Weakness; K21.9 Gastro-esophageal reflux disease without esophagitis; F41.0 Panic disorder [episodic paroxysmal anxiety]; H54.7 Unspecified visual loss; Z92.21 Personal history of antineoplastic chemotherapy; J44.9 Chronic obstructive pulmonary disease, unspecified; R53.81 Other malaise; F10.21 Alcohol dependence, in remission; Z87.891 Personal history of nicotine dependence; Z88.5 Allergy status to narcotic agent; Z79.899 Other long term (current) drug therapy; Z87.442 Personal history of urinary calculi; I95.9 Hypotension, unspecified; Z68.21 Body mass index [BMI] 21.0-21.9, adult
CPT/HCPCS: 36415 ×2; 36600; 51701; 71045; 80053 ×2; 81001; 82803; 83605; 83735 ×2; 84145; 84484; 85007; 85027 ×2; 87040 ×2; 87086; 87641; 93005; 96361 ×2; 96365; 96366; 96367; 97162; 99285; G0378 ×2; J0696; J3475; J7030 ×3; J7050; U0002; 80048; 84100; 85025; 93010; 94761; 97530-GP; 99222; 99239; A9270-GY; J1642; J1650; J8540